=== PATIENT | male | born 1945 | race Caucasian/White ===

== ENCOUNTER 2021-03-04 05:04 | Inpatient (IN) ==
--- NOTE | 2021-02-26 11:12 | Anesthesiology Consultation ---
Date of Service February 26, 2021 Assessment & Plan (1) Encounter for pre-operative examination: Chart Review Chart Review: Pending: Refer to Additional Notes / Consult section Please obtain most recent note from patient's PCP to ensure he has had adequate follow up and that his blood pressure has been under adequate control given his history of diabetes and TIA. If he had not seen his PCP in the last year please obtain a PCP clearance prior to the procedure. History Surgery Operation Date: 03/04/21 07:15 Proposed Procedures p L4-S1 Posterior Lumbar Decompression and Fusion, Interbody Fusion, Autograft, Allograft - Kristin Alvarado MD Height/Weight Height: 5 ft 11 in Weight: 108.862 kg Allergies Allergy/AdvReac Type Severity Reaction Status Date / Time niacin Allergy Mild red and Verified 02/24/21 10:46 sweating Medications Home Medications Medication Instructions Recorded Confirmed Last Taken aspirin 81 mg tablet,delayed 81 mg PO QAM 10/11/19 02/24/21 12/12/19 release cyanocobalamin (vitamin B-12) 1,000 mcg PO QAM 10/11/19 02/24/21 12/12/19 1,000 mcg tablet (Vitamin B-12) fenofibrate nanocrystallized 145 145 mg PO QAM 10/11/19 02/24/21 12/12/19 mg tablet furosemide 40 mg tablet 40 mg PO QAM 10/11/19 02/24/21 12/12/19 gabapentin 300 mg capsule 300 mg PO BID 10/11/19 02/24/21 12/12/19 insulin aspart U-100 100 unit/mL 10 unit SUBCUT TIDM 10/11/19 02/24/21 12/12/19 subcutaneous solution (Novolog U-100 Insulin aspart) insulin glargine 100 unit/mL 50 unit SUBCUT HS 10/11/19 02/24/21 12/12/19 subcutaneous solution (Lantus U-100 Insulin) levothyroxine 112 mcg tablet 112 mcg PO QAM 10/11/19 02/24/21 12/12/19 lisinopril 40 mg tablet 40 mg PO QAM 10/11/19 02/24/21 12/12/19 metformin 1,000 mg tablet 1,000 mg PO BID 10/11/19 02/24/21 12/12/19 metoprolol tartrate 50 mg tablet 50 mg PO BID 10/11/19 02/24/21 12/12/19 omega 8-kcg-qqb-fish oil 1,000 mg 1 cap PO QAM 10/11/19 02/24/21 12/12/19 (120 mg-180 mg) capsule (Fish Oil) omeprazole 20 mg tablet,delayed 20 mg PO QAM 10/11/19 02/24/21 12/12/19 release oxybutynin chloride 5 mg tablet 5 mg PO BID 10/11/19 02/24/21 12/12/19 rosuvastatin 5 mg tablet 5 mg PO QAM 10/11/19 02/24/21 12/12/19 tamsulosin 0.4 mg capsule 0.4 mg PO QAM 10/11/19 02/24/21 12/12/19 meloxicam 7.5 mg tablet 7.5 mg PO QAM 02/24/21 02/24/21 Unknown Past Medical History Medical History BPH (benign prostatic hyperplasia) Chronic back pain Diabetes mellitus type 1 Hyperlipidemia Hypertension Hypothyroidism Lumbar stenosis with neurogenic claudication Spinal stenosis Transient ischemic attack (TIA) Past Family History Family History Father Family history of diabetes mellitus Other No family history of adverse response to anesthesia Past Surgical History Surgical History History of colonoscopy with polypectomy History of left inguinal hernia repair History of lumbar surgery History of revision of total replacement of right hip joint History of tonsillectomy History of total right hip replacement History of wisdom tooth extraction Social History Smoking Status: Current every day smoker tobacco type: cigarettes Smoking cigarettes per day: 1/2-1 ppd Do You Dip or Chew Tobacco: No Hx Alcohol Use: No Alcohol type: beer alcohol intake frequency: holidays/special occasions only Hx Substance Use: No substance use type: does not use Testing Laboratory Results Laboratory Tests 02/25/21 02/25/21 02/25/21 09:25 09:25 09:25 WBC 6.61 Hgb 16.4 Hct 46.5 Plt Count 181 APTT 24.3 Sodium 138 Potassium 4.2 Chloride 106 Carbon Dioxide 27 BUN 18 Creatinine 1.21 Glucose 112 H Electrocardiogram Date: 02/25/21 Sinus bradycardia with 1st degree A-V block Otherwise normal ECG When compared with ECG of 25-FEB-2015 11:20, No significant change was found Chest X-Ray Date: 02/25/21 IMPRESSION: Cardiomegaly with no active disease in the chest.
[2021-03-04] MEDS ORDERED: ceFAZolin 2000MG 2,000 MG/15 ML SYR IV SCH (06:00)
[2021-03-04] MEDS ORDERED: LR 15ML/HR IV SCH (06:00)
[2021-03-04] MEDS ORDERED: LR 60ML/HR IV SCH (06:00)
[2021-03-04] MEDS ORDERED: ONDANSETRON INJ 2 MG/ML 2 ML VIAL ONE (06:25)
[2021-03-04] MEDS ORDERED: CISATRACURIUM BESYLATE IV SOLN 2 MG/ML 10 ML VIAL IV ONE ×2 (06:25→09:11)
[2021-03-04] MEDS ORDERED: NEOSTIGMINE METHYLSULFATE 1 MG/ML 10ML VIAL ONE (06:25)
[2021-03-04] MEDS ORDERED: HYDROmorphone INJ 2 MG/ML SYR/VIAL ONE (06:25)
[2021-03-04] MEDS ORDERED: KETAMINE 50 MG/5 ML SYRINGE ONE (06:25)
[2021-03-04] MEDS ORDERED: PROPOFOL IV EMULSION 10 MG/ML 20 ML VIAL IV ONE (06:25)
[2021-03-04] MEDS ORDERED: fentaNYL citrate 100 MCG/2 ML VIAL ONE ×4 (06:25→15:00)
[2021-03-04] MEDS ORDERED: MIDAZOLAM HCL 1 MG/ML 2ML VIAL ONE (06:25)
[2021-03-04] MEDS ORDERED: DEXAMETHASONE SOD INJ 4 MG/ML VIAL ONE (06:25)
[2021-03-04] MEDS ORDERED: GLYCOPYRROLATE 0.2 MG/ML VIAL ONE (06:25)
[2021-03-04] MEDS ORDERED: SUCCINYLCHOLINE CHLORIDE 20 MG/ML 10 ML VIAL IV ONE (06:25)
[2021-03-04] MEDS ORDERED: ACETAMINOPHEN 1000 MG/100 ML IV IV ONE (06:35)
[2021-03-04] MEDS ORDERED: ALBUMIN HUMAN 5% 12.5 GM/250 ML VIAL IV ONE ×2 (06:36→14:41)
[2021-03-04] MEDS ORDERED: TRANEXAMIC ACID / 0.7% NACL 1000MG/100ML BAG IV ONE (06:47)
--- NOTE | 2021-03-04 06:54 | History & Physical Bridge Note ---
Date of Service March 04, 2021 History & Physical Bridge Note I have examined the patient, reviewed the History & Physical and in the interval since the performance of the History & Physical I have noted the following changes of clinical significance: no changes noted New changes compared to last appointment: nil Musculoskeletal: 5/5 motor strength bilateral L2-S1 except right L5 3/5, left S1 4/5, right S1 4+/5 Neurologic: Sensation 2/2 to light touch bilateral L2-S1. Patient marked for surgery. All new questions about procedure answered. Informed consent confirmed
[2021-03-04] MEDS ORDERED: VANCOMYCIN HCL 1000MG/20ML VIAL ONE (07:26)
[2021-03-04] MEDS ORDERED: THROMBIN FOR SOLN 20000 UNIT KIT ONE (07:26)
[2021-03-04] MEDS ORDERED: GELATIN SPONGE SZ 100 ONE (07:26)
[2021-03-04] MEDS ORDERED: PHENYLEPHRINE 100MCG/ML 5ML SYR ONE (08:03)
[2021-03-04] MEDS ORDERED: ePHEDrine sulfate 50 MG/ML SYR ONE (08:03)
[2021-03-04] MEDS ORDERED: ePHEDrine sulfate 50 MG/ML AMP ONE (08:26)
[2021-03-04] MEDS ORDERED: PHENYLEPHRINE HCL 10 MG/ML VIAL ONE ×3 (08:40→15:10)
[2021-03-04] MEDS ORDERED: LABETALOL HCL IV 5 MG/ML 20ML IV PRN (11:28)
[2021-03-04] MEDS ORDERED: ATROPINE SULFATE 0.1 MG/ML 10ML SYR IV PRN (11:28)
[2021-03-04] MEDS ORDERED: fentaNYL citrate 100 MCG/2 ML VIAL IV PRN (11:28)
[2021-03-04] MEDS ORDERED: HYDROmorphone INJ 1 MG/ML SYRINGE IV PRN (11:28)
[2021-03-04] MEDS ORDERED: ONDANSETRON INJ 2 MG/ML 2 ML VIAL IV PRN ×2 (11:28→17:41)
[2021-03-04] MEDS ORDERED: ePHEDrine sulfate 50 MG/ML AMP IV PRN (11:28)
[2021-03-04] MEDS ORDERED: FLUMAZENIL 0.1 MG/1 ML 10 ML VIAL IV PRN (11:28)
[2021-03-04] MEDS ORDERED: NALOXONE HCL 0.4 MG/1 ML VIAL/CARP IV PRN ×2 (11:28→17:41)
[2021-03-04] MEDS ORDERED: PROMETHAZINE HCL 12.5 MG in SODIUM CHLORIDE 0.9% 50 ML IV PRN ×2 (11:28→17:41)
[2021-03-04] MEDS ORDERED: ceFAZolin 2000MG 2,000 MG/15 ML SYR IV ONE (12:04)
[2021-03-04 12:53] LABS: Basophils # (auto) 0.02 K/uL (0-0.2); Basophils % (auto) 0.2 %; Eosinophils # (auto) 0.01 K/uL (0-0.5); Eosinophils % (auto) 0.1 %; Hematocrit (blood only) 43.1 % (42-52); Hemoglobin 15.3 g/dL (14.0-18.0); Immature Granulocytes # (auto) 0.04 K/uL (0.00-0.02); Immature Granulocytes % (auto) 0.4 %; Lymphocytes # (auto) 1.06 K/uL (1.2-3.4); Lymphocytes % (auto) 10.6 %; Mean Corpuscular Hemoglobin 31.7 pg (25-34); Mean Corpuscular Volume 89.4 fL (80-100); Neutrophils # (auto) 8.75 K/uL (1.4-6.5); Neutrophils % (auto) 87.7 %; Platelet Count 201 K/uL (130-400); RDW Coefficient of Variation 13.8 % (11.5-14.5); RDW Standard Deviation 45.6 fL (36.4-46.3); Red Blood Count 4.82 M/uL (4.7-6.1); White Blood Count 9.98 K/uL (4.8-10.8)
[2021-03-04 13:09] LABS: iSTAT Creatinine 1.1 mg/dl (0.6-1.3); iSTAT Hemoglobin 14.3 g/dl (14.0-18.0); iSTAT Ionized Calcium 1.18 mmol/l (1.12-1.32); iSTAT Potassium 4.8 mmol/L (3.3-5.0)
[2021-03-04 13:14] LABS: Mean Corpuscular Hgb Conc 35.5 g/dL (32-36)
[2021-03-04 15:03] LABS: iSTAT Creatinine 1.1 mg/dl (0.6-1.3); iSTAT Hemoglobin 13.6 g/dl (14.0-18.0); iSTAT Ionized Calcium 1.22 mmol/l (1.12-1.32); iSTAT Potassium 5.4 mmol/L (3.3-5.0)
[2021-03-04] MEDS ORDERED: FLOSEAL HEMOSTATIC MATRIX 10ML TOP ONE (15:03)
[2021-03-04 15:21] LABS: Hematocrit (blood only) 39.4 % (42-52); Hemoglobin 13.6 g/dL (14.0-18.0); Mean Corpuscular Hemoglobin 31.3 pg (25-34); Mean Corpuscular Volume 90.6 fL (80-100); Mean Platelet Volume 10.1 fL (7.4-10.4); Platelet Count 252 K/uL (130-400); RDW Standard Deviation 46.6 fL (36.4-46.3); Red Blood Count 4.35 M/uL (4.7-6.1); White Blood Count 13.41 K/uL (4.8-10.8)
[2021-03-04 15:44] LABS: BUN Creatinine Ratio 12.7 (10-20); Calcium 8.1 mg/dl (8.5-10.1); Creatinine Clr Calc Pharmacy 60.3 ml/min; Est GFR (African American) 60.6 ml/min; Est GFR (Non-African American) 52.3 ml/min; Potassium 5.3 mmol/L (3.5-5.1)
--- NOTE | 2021-03-04 15:52 | XRay Report ---
XR lumbar spine 2-3V CLINICAL HISTORY: L4-S1 POSTERIOR LUMBAR DECOMPRESSION, FUSION, INTERBODY COMPARISON STUDY: Lumbar spine 01/28/2021. FINDINGS: 19 images of the lumbar spine demonstrate posterior decompression and fusion from L4 throug h S1 with pedicle screws in place. The hardware appears intact. IMPRESSION: Posterior decompression and fusion from L4 through S1. The hardware appears intact. ACT 112: Negative or not required by law. Electronically signed by: Sukhwinder Calle M.D. 03/04/2021 3:51 PM
[2021-03-04 15:55] LABS: Mean Corpuscular Hgb Conc 34.5 g/dL (32-36)
--- NOTE | 2021-03-04 16:05 | Post Operative Brief Note ---
PG Immediate Post Op with CF Date of Surgery March 04, 2021 Pre & Post Diagnosis Operation Date: 03/04/21 Pre-Op Diagnosis: Neurogenic Claudication, Scoliosis Post-Op Diagnosis: Neurogenic Claudication, Scoliosis I identified the patient and participated in the time-out.: Yes Procedure L4-S1 Posterior Lumbar Instrumentation and Fusion, L5-S1 posterior deco mpression, Local Autograft, Allograft Surgeon Kristin Alvarado MD Senior Technical Specialist Ke Aguilar PA-C Estimated Blood Loss 1,500 (Linda Mahoney and Dr. Alvarado agreed on amount.) Findings Consistent with Post-Op Diagnosis Specimens Specimen Description: None collected per surgeon Drains Morton Catheter and Hemovac Drain
[2021-03-04] MEDS ORDERED: METOPROLOL TARTRATE 1 MG/ML VIAL IV ONE (16:14)
[2021-03-04] MEDS ORDERED: INSULIN ASPART PER UNIT SC STA (16:18)
[2021-03-04] MEDS ORDERED: INSULIN ASPART PER UNIT ONE (16:19)
[2021-03-04] MEDS ORDERED: METOPROLOL TARTRATE 1 MG/ML VIAL IV STA (16:21)
--- NOTE | 2021-03-04 16:32 | Internal Medicine Consult Note ---
Date of Consultation March 04, 2021 Assessment & Plan (1) Lumbar stenosis with neurogenic claudication: (2) Lumbar spinal stenosis: (3) Acute postoperative anemia due to greater than expected blood loss: (4) Scoliosis: (5) Tachycardia: (6) Hyperkalemia: (7) Chronic kidney disease: (8) BPH (benign prostatic hyperplasia): (9) Diabetes: (10) HTN (hypertension): (11) HLD (hyperlipidemia): (12) Hypothyroid: Place in ICU for now, Insulin SS, Transfuse if Hb drops below 10 Resume Post Op Care per Surgery Protocol Incentive Spirometry 10x per Hour Resume Relative Home Meds Where Appropriate PT/OT with appropriate fall precautions Transition from IV to PO Pain control DVT Prophylaxis Per Surgery Protocol Monitor Daily Labs Total time 1 hour CC time History of Present Illness Reason for Consultation: Medical Management, Tachycardia Requesting Physician: Kristin Alvarado MD Attending Physician: Kristin Alvarado MD History of Present Illness 75 yo male c a PMH of BPH, Chronic back pain, Diabetes, HTN, HLD, Hypothyroidism, TIA, Lumbar stenosis c claudication who today was operated on by Dr Alvarado. The procedure was long and I was consulted by Anesthesia to see the patient stat in PACU. I was told he had an estimated blood loss of 1500 ml, received 4 L of LR and 750 ml of Albumin to maintain his BP. Pre-op his Hb was 13.3. In the PACU he was and tachycardic and was given some IV Metoprolol. I saw him in PACU and he was still groggy from surgery. He was in OR [id number]. He followed commands was was to weak and groggy to talk. Due to his soft BP and elevated HR and all the IV fluid and blood loss during the case so far, I elected to get the CC team involved at least overnight. The patient had Neurogenic Claudication and Scoliosis, the Procedure was an L4-S1 Posterior Lumbar Instrumentation and Fusion, L5-S1 posterior decompression, Local Aut ograft, Allograft. Of note, an accu check revealed a BS of over 300 and 16 U of insulin was given. Allergies Allergy/AdvReac Type Severity Reaction Status Date / Time niacin Allergy Mild red and Verified 03/04/21 05:42 sweating Home Medications Medication Instructions Recorded Confirmed Type aspirin 81 mg tablet,delayed 81 mg PO QAM 10/11/19 02/24/21 History release cyanocobalamin (vitamin B-12) 1,000 mcg PO QAM 10/11/19 02/24/21 History 1,000 mcg tablet (Vitamin B-12) fenofibrate nanocrystallized 145 145 mg PO QAM 10/11/19 02/24/21 History mg tablet furosemide 40 mg tablet 40 mg PO QAM 10/11/19 02/24/21 History gabapentin 300 mg capsule 300 mg PO BID 10/11/19 03/04/21 History insulin aspart U-100 100 unit/mL 10 unit SUBCUT TIDM 10/11/19 03/04/21 History subcutaneous solution (Novolog U-100 Insulin aspart) insulin glargine 100 unit/mL 50 unit SUBCUT HS 10/11/19 03/04/21 History subcutaneous solution (Lantus U-100 Insulin) levothyroxine 112 mcg tablet 112 mcg PO QAM 10/11/19 02/24/21 History lisinopril 40 mg tablet 40 mg PO QAM 10/11/19 02/24/21 History metformin 1,000 mg tablet 1,000 mg PO BID 10/11/19 03/04/21 History metoprolol tartrate 50 mg tablet 50 mg PO BID 10/11/19 03/04/21 History omega 8-oap-klc-fish oil 1,000 mg 1 cap PO QAM 10/11/19 02/24/21 History (120 mg-180 mg) capsule (Fish Oil) omeprazole 20 mg tablet,delayed 20 mg PO QAM 10/11/19 02/24/21 History release oxybutynin chloride 5 mg tablet 5 mg PO BID 10/11/19 03/04/21 History rosuvastatin 5 mg tablet 5 mg PO QAM 10/11/19 02/24/21 History tamsulosin 0.4 mg capsule 0.4 mg PO QAM 10/11/19 02/24/21 History meloxicam 7.5 mg tablet 7.5 mg PO QAM 02/24/21 02/24/21 History Patient History Medical History BPH (benign prostatic hyperplasia) Chronic back pain Diabetes mellitus type 1 Hyperlipidemia Hypertension Hypothyroidism Lumbar stenosis with neurogenic claudication Spinal stenosis Transient ischemic attack (TIA) 2016--no deficits, no neurologist Surgical History History of colonoscopy with polypectomy History of left inguinal hernia repair History of lumbar surgery History of revision of total replacement of right hip joint History of tonsillectomy History of total right hip replacement History of wisdom tooth extraction Family History Father Family history of diabetes mellitus Other No family history of adverse response to anesthesia Social History Smoking Status: Current every day smoker Cigarettes Per Day: 1/2-1 ppd; Second Hand Exposure: No; Do You Dip or Chew Tobacco: No; Tobacco Cessation Education Requested by Patient: No Hx Alcohol Use: No Hx Substance Use: No Preferred Language: Slovak Communication Ability: Effective Assistant Spa Director Required: No Beliefs That Will Affect Care: None Current Living Situation: Alone Other Information That Helps Us Care for You: No Feels Safe at Home: Yes Safety Concerns: Feels Safe At This Time Assistive Devices: Cane and Glasses Review of Systems Review of Systems: Patient offered no history to me, but followed commands Physical Exam Physical Exam: Physical Exam Gen-NAD, Afebrile Head-NCAT, EOMI, PERRLA, Anicteric Sclera Neck-Supple, No JVD, No Thyromegaly, No Masses, No LAD, No Bruits Lungs-Clear to Auscultation Bilaterally, No Rales, No Rhonchi, No Wheezing, No Crepitus Chest-No S4, +S1, +S2, No S3, No Murmurs, No Rubs, No Gallops, No Ectopy Abdomen-Soft, Bowel Sounds Present, Non Tender, Non Distended, No Hepatomegaly, No Splenomegaly, No Palpable Masses, No Rebound, No Rigidity, No Guarding Musculoskeletal-NA Extremities-No Cyanosis, No Clubbing, No Edema Nuero-Cranial Nerves II-XII grossly intact, Non Focal Psych-Somnolent from anesthesia Results & Data ([facility]) Vital Signs (Past 12 Hours) Vital Signs Temp Pulse Pulse Resp BP Pulse Ox 03/04/21 16:16 120 H 03/04/21 05:20 37 C 74 18 166/75 H 93 Laboratory Results Current Diagnoses Hyperkalemia (03/04/21) Spinal stenosis, lumbar region with neurogenic claudication (03/04/21) Chronic kidney disease, unspecified (03/04/21) Tachycardia, unspecified (03/04/21) Encounter for other preprocedural examination (03/04/21) Allergies niacin Allergy (Mild, Verified 03/04/21 05:42) red and sweating Height/Weight/Isolation Height 5 ft 11 in Weight 105.8 kg Chemistry 03/04/21 15:05 Sodium 138 Potassium 5.3 H Chloride 107 Carbon Dioxide 23 Anion Gap 8.0 BUN 17 Creatinine 1.33 Glucose 299 H
[2021-03-04 16:42] LABS: Hematocrit (blood only) 35.4 % (42-52); Hemoglobin 12.4 g/dL (14.0-18.0)
--- NOTE | 2021-03-04 17:16 | Anesthesiology Progress Note ---
Date of Service March 04, 2021 Anesthesia Post Procedure Vital Signs Vital Signs: Temp Pulse Pulse Pulse Resp BP BP 03/04/21 17:05 94 H 21 98/53 L 97/39 L 03/04/21 16:55 36.4 C L 93 H 18 101/56 L 110/39 L 03/04/21 16:45 93 H 17 107/40 L 102/57 L 03/04/21 16:35 96 H 14 100/59 L 03/04/21 16:25 91 H 14 108/65 03/04/21 16:16 120 H 03/04/21 16:15 123 H 23 125/64 03/04/21 16:07 36.0 C L 125 H 15 111/67 03/04/21 05:20 37 C 74 18 166/75 H Pulse Ox 03/04/21 17:05 95 03/04/21 16:55 96 03/04/21 16:45 96 03/04/21 16:35 96 03/04/21 16:25 97 03/04/21 16:16 03/04/21 16:15 97 03/04/21 16:07 97 03/04/21 05:20 93 Pain Intensity Right Back: Pain Intensity: 2 Transfer of Care Handoff Completed per policy Notes Mental Status: alert / awake / arousable Patient Amnestic to Procedure: Yes Nausea / Vomiting: adequately controlled Pain: adequately controlled Airway Patency, RR, SpO2: stable & adequate BP & HR: stable & adequate and see Notes below Hydration State: stable & adequate Anesthetic Complications: no major complications apparent and Pt Satisfied with anesthetic care Notes: The patient underwent a posterior lumbar decompression and fusion. Dr. Garcia started the anesthetic and signed out to Dr. King who supervised the rest of the procedure. The patient was under anesthesia and prone for eight to nine hours. He received albumin 750 ml and 3600 ml of LR in the OR. EBL was 1500 ml and urine output was 1100 ml. The patient is awake and following commands in the PACU. He is able to move all extremities and stick out his to ngue. He was able to see and state the correct number of fingers. He is slightly hypotensive with SBP in the 90s to 100s with HR in the 90s. His other vital signs are stable. Postop BSG was 320. He was given Novolog SQ 16 [facility] and would like the patient to go to the ICU for monitoring. Sign out was given to Jamil Wang and Dr. Figueroa in the ICU.
[2021-03-04] MEDS ORDERED: hydrOXYzine HCl 25 MG TAB PO PRN (17:41)
[2021-03-04] MEDS ORDERED: ACETAMINOPHEN 500 MG TAB PO PRN (17:41)
[2021-03-04] MEDS ORDERED: MAGNESIUM HYDROXIDE SUSP 30 ML UDC PO PRN (17:41)
[2021-03-04] MEDS ORDERED: HYDROmorphone INJ 0.5 MG/0.5 ML SYR IV PRN (17:41)
[2021-03-04] MEDS ORDERED: INSULIN ASPART PER UNIT SQ SCH (17:41)
[2021-03-04] MEDS ORDERED: METOCLOPRAMIDE HCL INJ 5 MG/ML 2 ML VIAL IV PRN (17:41)
[2021-03-04] MEDS ORDERED: DO NOT ADMINISTER PNEUMOCOCCAL VACCINE PRN (17:41)
[2021-03-04] MEDS ORDERED: SOD PHOSPHATE/SOD BIPHOSPHATE ENEMA 132 ML BTL PR PRN (17:41)
[2021-03-04] MEDS ORDERED: ACETAMINOPHEN 1,000 MG/100 ML VIAL IV PRN (17:41)
[2021-03-04] MEDS ORDERED: diphenhydrAMINE Capsule 25 MG CAP PO PRN (17:41)
[2021-03-04] MEDS ORDERED: ALUMINUM/MAGNESIUM SUSP 30 ML UDC PO PRN (17:41)
[2021-03-04] MEDS ORDERED: FAMOTIDINE 20 MG TAB PO PRN (17:41)
[2021-03-04] MEDS ORDERED: ONDANSETRON 4 MG OD TAB PO PRN (17:41)
[2021-03-04] MEDS ORDERED: LORazepam 0.5 MG TAB PO PRN (17:41)
[2021-03-04] MEDS ORDERED: DO NOT ADMINISTER FLU VACCINE PRN (17:41)
[2021-03-04] MEDS ORDERED: bisacodyL 10 MG SUPP PR PRN (17:41)
[2021-03-04] MEDS ORDERED: PHARMACY GLYCEMIC MGMT CONSULT PRN ×2 (17:41→18:24)
[2021-03-04] MEDS ORDERED: LORazepam 0.5 MG/1 ML VIAL IV PRN (17:41)
--- NOTE | 2021-03-04 17:53 | Critical Care Consultation ---
Date of Consultation March 04, 2021 Assessment & Plan (1) Lumbar stenosis with neurogenic claudication: (2) Tachycardia: (3) Hyperkalemia: (4) Chronic kidney disease: Impression: 75-year-old male status post extensive spine surgery today where he spent an extended period of time prone. He had a large EBL. He is being monitored in the ICU postoperatively. He is tachycardic but normotensive. He has a nonfocal neuro exam. Recommendations: 1. Tachycardia: Suspect this is physiologic response to the patient's stresses from today. There is no evidence of atrial fibrillation. Would continue to follow at this point time. No indication for beta-blockers given that this is sinus tach. 2. Potential acute blood loss anemia: We will continue to follow hemoglobin and hematocrit. Transfusion thresholds are likely less than 8. 3. Chronic kidney disease: Creatinine appears to be at baseline. Will continue to follow electrolytes. 4. Hyperkalemia: We will give a dose of Lasix and calcium now. Recheck BMP in a few hours if continues to remain elevated, additional interventions will be required. We will hold his lisinopril as this may aggravate hyperkalemia especially given his kidney function. 5. Diabetes: Poorly controlled with elevated blood sugars. Glycemic consult will be entered through pharmacy. Would favor holding Metformin in the face of uncertain kidney function currently. 6. Defer DVT prophylaxis and pain management to the operative team. 7. PT OT and activity deferred to the operative team. If the patient does well overnight he can likely transfer to the floor under the care of the hospitalist in the morning. Discussed with bedside ICU nurse. History of Present Illness Attending Physician: Kristin Alvarado MD History of Present Illness Asked by hospitalist to evaluate this patient admitted to the ICU for postoper ative monitoring after an extensive spine surgery. History is obtained from discussion with the anesthesiologist and patient as well as review of the electronic medical record. Patient is a 75-year-old male with a history of hypertension diabetes obesity hypothyroidism reflux and previous TIAs who has had chronic back pain. He failed conservative management and was seen in consultation by the orthospine surgeon. He was taken today to the OR for L4-S1 fusion with L5-S1 posterior decompression. Estimated blood loss during the procedure was 1.5 L. The patient received albumin as well as about 3 L of crystalloid. He also received Decadron during the case. He was extubated in the PACU medicine was consulted for management however they felt that given the extensive nature of his surgery and his comorbid medical conditions he should be observed in the ICU overnight. The patient is currently tachycardic but normotensive. His blood sugars have been elevated despite administration of insulin. The patient states his pain is under good control currently. He denies any shortness of breath. No vision changes. He denies nausea or vomiting. No abdominal pain. No chest pain or palpitations. Allergies Allergy/AdvReac Type Severity Reaction Status Date / Time niacin Allergy Mild red and Verified 03/04/21 05:42 sweating Home Medications Medication Instructions Recorded Confirmed Type aspirin 81 mg tablet,delayed 81 mg PO QAM 10/11/19 02/24/21 History release cyanocobalamin (vitamin B-12) 1,000 mcg PO QAM 10/11/19 02/24/21 History 1,000 mcg tablet (Vitamin B-12) fenofibrate nanocrystallized 145 145 mg PO QAM 10/11/19 02/24/21 History mg tablet furosemide 40 mg tablet 40 mg PO QAM 10/11/19 02/24/21 History gabapentin 300 mg capsule 300 mg PO BID 10/11/19 03/04/21 History insulin aspart U-100 100 unit/mL 10 unit SUBCUT TIDM 10/11/19 03/04/21 History subcutaneous solution (Novolog U-100 Insulin aspart) insulin glargine 100 unit/mL 50 unit SUBCUT HS 10/11/19 03/04/21 History subcutaneous solution (Lantus U-100 Insulin) levothyroxine 112 mcg tablet 112 mcg PO QAM 10/11/19 02/24/21 History lisinopril 40 mg tablet 40 mg PO QAM 10/11/19 02/24/21 History metformin 1,000 mg tablet 1,000 mg PO BID 10/11/19 03/04/21 History metoprolol tartrate 50 mg tablet 50 mg PO BID 10/11/19 03/04/21 History omega 8-coy-ovy-fish oil 1,000 mg 1 cap PO QAM 10/11/19 02/24/21 History (120 mg-180 mg) capsule (Fish Oil) omeprazole 20 mg tablet,delayed 20 mg PO QAM 10/11/19 02/24/21 History release oxybutynin chloride 5 mg tablet 5 mg PO BID 10/11/19 03/04/21 History rosuvastatin 5 mg tablet 5 mg PO QAM 10/11/19 02/24/21 History tamsulosin 0.4 mg capsule 0.4 mg PO QAM 10/11/19 02/24/21 History meloxicam 7.5 mg tablet 7.5 mg PO QAM 02/24/21 02/24/21 History Patient History Medical History BPH (benign prostatic hyperplasia) Chronic back pain Diabetes mellitus type 1 Hyperlipidemia Hypertension Hypothyroidism Lumbar stenosis with neurogenic claudication Spinal stenosis Transient ischemic attack (TIA) Surgical History History of colonoscopy with polypectomy History of left inguinal hernia repair History of lumbar surgery History of revision of total replacement of right hip joint History of tonsillectomy History of total right hip replacement History of wisdom tooth extraction Family History Father Family history of diabetes mellitus Other No family history of adverse response to anesthesia Social History Smoking Status: Current every day smoker Cigarettes Per Day: 1/2-1 ppd; Second Hand Exposure: No; Do You Dip or Chew Tobacco: No; Tobacco Cessation Education Requested by Patient: No Hx Alcohol Use: No Hx Substance Use: No Preferred Language: Wallisian Communication Ability: Effective Director Of Design Required: No Beliefs That Will Affect Care: None Current Living Situation: Alone Other Information That Helps Us Care for You: No Feels Safe at Home: Yes Safety Concerns: Feels Safe At This Time Assistive Devices: Cane and Glasses Review of Systems Review of Systems: All systems reviewed & are unremarkable except as noted in HPI & below Physical Exam Constitutional: WD/WN, vitals as above Neck: trachea midline, no thyromegaly Respiratory: normal respiratory effort, lungs clear to auscultation Cardiovascular: RRR, no murmur, no edema Gastrointestinal (Abdomen): normal bowel sounds, soft, nontender, no hepatosplenomegaly Musculoskeletal: Extremities: extremities normal to inspection Skin: no rashes, warm and dry Neurologic: Nonfocal exam Lymphatic: no cervical lymphadenopathy Results & Data Results & Data ([facility]) Vital Signs (Past 12 Hours) Vital Signs Temp Pulse Pulse Resp BP BP Pulse Ox 03/04/21 17:15 110 H 20 106/55 L 104/36 L 94 03/04/21 17:05 94 H 21 98/53 L 97/39 L 95 03/04/21 16:55 36.4 C L 93 H 18 101/56 L 110/39 L 96 03/04/21 16:45 93 H 17 107/40 L 102/57 L 96 03/04/21 16:35 96 H 14 100/59 L 96 03/04/21 16:25 91 H 14 108/65 97 03/04/21 16:16 120 H 03/04/21 16:15 123 H 23 125/64 97 03/04/21 16:07 36.0 C L 125 H 15 111/67 97 Laboratory Results 03/04/21 16:31 03/04/21 15:05 Diagnostic Findings No pertinent imaging to review. Preoperative chest x-ray from 02/25/2021 showed cardiomegaly but no other acute finding Coding Level of Care Code 83576 Inpt Consult Level 4 Diagnoses Lumbar stenosis with neurogenic claudication M48.062 Tachycardia R00.0 Hyperkalemia E87.5 Chronic kidney disease N18.9
[2021-03-04] MEDS ORDERED: CALCIUM GLUCONATE 10% 2,000 MG in SODIUM CHLORIDE 0.9% 50 ML IV ONE (18:00)
[2021-03-04] MEDS ORDERED: FUROSEMIDE 40 MG in SYRINGE 0 ML IV ONE (18:00)
[2021-03-04] MEDS ORDERED: LANTUS PER UNIT CHARGE SQ STA (18:23)
[2021-03-04] MEDS ORDERED: CARBOHYDRATES FOR HYPOGLYCEMIA PO PRN (18:24)
[2021-03-04] MEDS ORDERED: GLUCOSE 40% GEL 15 GM TUBE PO PRN (18:24)
[2021-03-04] MEDS ORDERED: DEXTROSE 50% 50 ML SYRINGE IV PRN (18:24)
[2021-03-04] MEDS ORDERED: GLUCAGON FOR INJ 1 MG VIAL SQ PRN (18:24)
[2021-03-04] MEDS ORDERED: GLUCOSE 10 TABS/TUBE PO PRN (18:24)
[2021-03-04] MEDS: LACTATED RINGER'S 1,000 ML IV SCH (18:26)
[2021-03-04] MEDS ORDERED: INSULIN HUMAN REGULAR PER UNIT 10 UNITS in SYRINGE 9.9 ML IV ONE (18:30)
[2021-03-04] MEDS ORDERED: INSULIN GLARGINE SOLOSTAR 100 UNITS/ML 3 ML PEN SC ONE (18:45)
--- NOTE | 2021-03-04 19:09 | Communication Note ---
Date of Service: March 04, 2021 Post-op routine neurological assessment completed Patient awake, alert No new neurological deficits noted Musculoskeletal: 5/5 motor strength bilateral L2-S1 except right L5 3/5, left S1 4/5, right S1 4+/5 Neurologic: Sensation 2/2 to light touch bilateral L2-S1.
[2021-03-04] MEDS: INSULIN ASPART 100 UNITS/ML 3 ML PEN SC SCH ×2 (19:22→21:48)
[2021-03-04 19:24] LABS: Hematocrit (blood only) 35.9 % (42-52); Hemoglobin 12.3 g/dL (14.0-18.0)
[2021-03-04] MEDS: ceFAZolin 2000MG 2,000 MG/15 ML SYR IV SCH (19:25)
--- NOTE | 2021-03-04 19:35 | Pharmacy Report ---
Pharmacy Glycemic Short Note 2 - Date of Service March 04, 2021 - Glycemic Short BSG Results (Last 24 hours): 03/04/21 03/04/21 03/04/21 05:27 12:44 14:38 Glucose POC Glucose 195 H POC Glucose (other) 275 H 303 H 03/04/21 03/04/21 03/04/21 15:05 16:08 17:01 Glucose 299 H POC Glucose 320 H* 314 H* POC Glucose (other) 03/04/21 18:06 Glucose POC Glucose 296 H POC Glucose (other) OUTPATIENT ANTIDIABETIC REGIMEN: * Lantus 50 units HS, Novolog 10 units TID, metformin * A1c ordered for tomorrow AM ASSESSMENT: * 75 year old male now s/p spinal surgery. With tachycardia postop now transferred to ICU for monitoring. * Patient received 16 units in OR this afternoon, postop BSG elevated at 296 mg/dL - plan to give 10 units IV insulin * Will stress home dose basal and give 60 units x 1 now to account for DXM given in OR earlier * Begin stress of 3 dosing for novolog with overnight checks PLAN FOR INPATIENT GLYCEMIC CONTROL: * Hold outpatient oral diabetes medications * Basal insulin * Lantus 60 units x 1 * Bolus insulin * NovoLog per scale ACHS or Q6hrs while NPO * Goal Range: Low 110 mg/dL - High 140 mg/dL * Correction Factor: 15 mg/dL/unit * Nutritional / Prandial insulin per carb ratio of 1 unit per 5 grams CHO consumed PLAN FOR DISCHARGE: * TBD
[2021-03-04] MEDS ORDERED: LANTUS PER UNIT CHARGE SQ SCH (21:00)
[2021-03-04] MEDS ORDERED: metFORMIN HCL 500 MG TAB PO SCH (21:00)
[2021-03-04] MEDS: METOPROLOL TARTRATE 50 MG TAB PO SCH (21:47)
[2021-03-04] MEDS: CYCLOBENZAPRINE HCL 10 MG TAB PO SCH (21:47)
[2021-03-04] MEDS: DOCUSATE SODIUM/SENNA 50/8.6MG TAB PO SCH (21:47)
[2021-03-04] MEDS: OXYBUTYNIN CHLORIDE 5 MG TAB PO SCH (21:48)
[2021-03-04] MEDS: GABAPENTIN 300 MG CAP PO SCH (21:48)
[2021-03-04 23:47] LABS: BUN Creatinine Ratio 15.7 (10-20); Calcium 8.5 mg/dl (8.5-10.1); Creatinine Clr Calc Pharmacy 58.1 ml/min; Potassium 4.2 mmol/L (3.5-5.1)
[2021-03-05] MEDS: ceFAZolin 2000MG 2,000 MG/15 ML SYR IV SCH (03:46)
[2021-03-05] MEDS: INSULIN ASPART 100 UNITS/ML 3 ML PEN SC SCH ×6 (03:59→20:13)
[2021-03-05 05:21] LABS: Basophils # (auto) 0.01 K/uL (0-0.2); Basophils % (auto) 0.1 %; Eosinophils # (auto) 0.01 K/uL (0-0.5); Eosinophils % (auto) 0.1 %; Hematocrit (blood only) 29.4 % (42-52); Hemoglobin 10.1 g/dL (14.0-18.0); Immature Granulocytes # (auto) 0.01 K/uL (0.00-0.02); Immature Granulocytes % (auto) 0.1 %; Lymphocytes # (auto) 1.76 K/uL (1.2-3.4); Lymphocytes % (auto) 20.6 %; Mean Corpuscular Hemoglobin 31.3 pg (25-34); Mean Corpuscular Hgb Conc 34.4 g/dL (32-36); Monocytes # (auto) 0.88 K/uL (0.11-0.59); Monocytes % (auto) 10.3 %; Neutrophils # (auto) 5.89 K/uL (1.4-6.5); Neutrophils % (auto) 68.8 %; Platelet Count 140 K/uL (130-400); RDW Coefficient of Variation 14.2 % (11.5-14.5); RDW Standard Deviation 47.2 fL (36.4-46.3); Red Blood Count 3.23 M/uL (4.7-6.1); White Blood Count 8.56 K/uL (4.8-10.8)
[2021-03-05] MEDS: LACTATED RINGER'S 1,000 ML IV SCH (05:21)
[2021-03-05 05:41] LABS: BUN Creatinine Ratio 19.3 (10-20); Calcium 7.7 mg/dl (8.5-10.1); Creatinine Clr Calc Pharmacy 68.6 ml/min; Est GFR (African American) 70.8 ml/min; Est GFR (Non-African American) 61.1 ml/min; Magnesium 1.5 mg/dl (1.8-2.4); Potassium 3.7 mmol/L (3.5-5.1)
[2021-03-05] MEDS: LEVOTHYROXINE SODIUM 112 MCG TABLET PO SCH (05:52)
[2021-03-05] MEDS: CYCLOBENZAPRINE HCL 10 MG TAB PO SCH ×3 (05:53→20:08)
[2021-03-05] MEDS: POLYETHYLENE (MIRALAX) 17 GM PACK PO SCH ×3 (05:53→16:48)
[2021-03-05] MEDS: MAGNESIUM SULFATE / D5W 1 GM/100 ML BAG IV SCH ×2 (06:12→08:03)
--- NOTE | 2021-03-05 07:29 | Orthopedic Progress Note ---
Date of Service March 05, 2021 Assessment & Plan (1) Status post spinal surgery: Plan: PT for mobility standing x-rays when able drain to be monitored today given unexpectedly low output from drains overnight (concerning for possible clotting of drains, could also be due to lack of mobility in ICU), need to be monitored for post-op hematoma with q1h neurological checks of the lower extremity for the next 24 hours. Please keep in ICU or similar bed setting where this is possible and contact me if any new neurological findings are noted. Plan communicated with chute puller RN. Admission and Anticipated Discharge Date Admission Date: March 04, 2021 Subjective pain well controlled no new numbness/weakness admitted to ICU post-op by hospitalist service for hypotension and tachycardia post-op Hgb 10.1 this AM Glucose 141 this AM Physical Exam Physical Exam: vitals: see vital signs section; on 2LNP this AM dressing: clean, dry intact drain: record as 0/0 cc/8hr last night. Small amount of sangiounous drainage in both drains this AM vascular: no calf tenderness or swelling bilaterally. no signs of DVT Musculoskeletal: 5/5 motor strength bilateral L2-S1 except right L5 3/5, left S1 4/5, right S1 4+/5 Neurologic: Sensation 2/2 to light touch bilateral L2-S1. Results & Data ([facility]) Vital Signs (Past 12 Hours) Vital Signs Temp Pulse Resp BP Pulse Ox 03/05/21 06:10 85 23 117/71 95 03/05/21 05:10 93 H 23 142/65 H 95 03/05/21 04:10 37.1 C 80 12 91/40 L 93 03/05/21 03:10 94 H 23 123/58 L 95 03/05/21 02:10 94 H 22 118/58 L 96 03/05/21 01:11 81 20 113/51 L 95 03/05/21 00:10 36.7 C 94 H 19 101/59 L 97 03/04/21 23:10 85 20 117/62 98 03/04/21 22:10 96 H 21 101/60 98 03/04/21 21:09 96 H 20 93/52 L 95 03/04/21 20:10 36.6 C 96 H 20 101/61 95 03/04/21 19:40 102 H 16 122/67 97 Diagnostic Findings post-op x-rays pending PG Care Time/CCT Total # of Minutes Spent Total Time Spent with Patient: Total time spent is greater than 50% in coordination of care (as documented) at patient's floor/unit and/or counseling patient: Coding Level of Care Code None Diagnoses Status post spinal surgery Z98.890
[2021-03-05 07:34] LABS: Estimated Average Glucose 143 mg/dl; Hemoglobin A1C 6.6 % (4.5-5.6)
--- NOTE | 2021-03-05 07:43 | Critical Care Progress Note ---
Date of Service March 05, 2021 Assessment & Plan (1) Lumbar stenosis with neurogenic claudication: (2) Tachycardia: (3) Hyperkalemia: (4) Chronic kidney disease: Plan: Impression: 75-year-old male postop day 2 extensive spine surgery with large EBL. He is brought to the ICU for postsurgical monitoring. He is been hemodynamically stable. Recommendations: 1. Tachycardia: Suspect this is physiologic response to the patient's stresses from today. Continue home dose of metoprolol. 2. Acute blood loss anemia: We will continue to follow hemoglobin and hematocrit. Transfusion thresholds are likely less than 8. Per orthospine, they want to continue every hour neuro checks for 24 hours to ensure no development of hematoma. Unclear if this can be accomplished on the floor. If not we will continue ICU level care for neuro checks. 3. Chronic kidney disease: Creatinine appears to be at baseline. Will continue to follow electrolytes. 4. Hyperkalemia: Resolved. Okay to restart TOMI inhibitor. 5. Diabetes: Improve glycemic control today. Continue current regimen. Okay to restart Metformin as serum creatinine is stable. 6. Hypertension: Continue metoprolol. Add back lisinopril today. Discontinue arterial line. 7. PT OT and activity deferred to the operative team. 8. Perioral numbness: We will ensure that his postanesthesia evaluation is aware of these findings 9 status post spine surgery: Per orthospine. Pain control per surgery. To need frequent neuro checks. If these can be accomplished on the floor I think the patient can be downgraded but will defer to nursing as to whether or not his acuity exceeds the capacity on the floor. Discussed with bedside ICU nurse. Admission and Anticipated Discharge Date Admission Date: March 04, 2021 Subjective Patient seen and examined. He is up to a chair eating breakfast. He complains of some numbness on his left upper lip. He is not having any difficulty with chewing or swallowing. Voice is the same. He is having some back pain. Physical Exam Constitutional: WD/WN, vitals as above Neck: trachea midline, no thyromegaly Respiratory: normal respiratory effort, lungs clear to auscultation Cardiovascular: RRR, no murmur, no edema Gastrointestinal (Abdomen): normal bowel sounds, soft, nontender, no hepatosplenomegaly Musculoskeletal: Extremities: extremities normal to inspection Skin: no rashes, warm and dry Lymphatic: no cervical lymphadenopathy Results & Data Results & Data ([facility]) Vital Signs (Past 12 Hours) Vital Signs Temp Pulse Resp BP Pulse Ox 03/05/21 06:10 85 23 117/71 95 03/05/21 05:10 93 H 23 142/65 H 95 03/05/21 04:10 37.1 C 80 12 91/40 L 93 03/05/21 03:10 94 H 23 123/58 L 95 03/05/21 02:10 94 H 22 118/58 L 96 03/05/21 01:11 81 20 113/51 L 95 03/05/21 00:10 36.7 C 94 H 19 101/59 L 97 03/04/21 23:10 85 20 117/62 98 03/04/21 22:10 96 H 21 101/60 98 03/04/21 21:09 96 H 20 93/52 L 95 03/04/21 20:10 36.6 C 96 H 20 101/61 95 03/04/21 19:40 102 H 16 122/67 97 Critical Care Results & Data Vital Signs (Past 12 Hours) Vital Signs Temp Pulse Resp BP Pulse Ox 03/05/21 06:10 85 23 117/71 95 03/05/21 05:10 93 H 23 142/65 H 95 03/05/21 04:10 37.1 C 80 12 91/40 L 93 03/05/21 03:10 94 H 23 123/58 L 95 03/05/21 02:10 94 H 22 118/58 L 96 03/05/21 01:11 81 20 113/51 L 95 03/05/21 00:10 36.7 C 94 H 19 101/59 L 97 03/04/21 23:10 85 20 117/62 98 03/04/21 22:10 96 H 21 101/60 98 03/04/21 21:09 96 H 20 93/52 L 95 03/04/21 20:10 36.6 C 96 H 20 101/61 95 03/04/21 19:40 102 H 16 122/67 97 Lab & Micro Results (Past 24 Hours) RBC 3.23 M/uL (4.7-6.1) L 03/05/21 WBC 8.56 K/uL (4.8-10.8) 03/05/21 Hgb 10.1 g/dL (14.0-18.0) L 03/05/21 Hct 29.4 % (42-52) L 03/05/21 MCV 91.0 fL (80-100) 03/05/21 MCH 31.3 pg (25-34) 03/05/21 MCHC 34.4 g/dL (32-36) 03/05/21 RDW Standard Deviation 47.2 fL (36.4-46.3) H 03/05/21 RDW Coefficient of Variation 14.2 % (11.5-14.5) 03/05/21 Plt Count 140 K/uL (130-400) 03/05/21 MPV 10.0 fL (7.4-10.4) 03/05/21 Neutrophils (%) (Auto) 68.8 % 03/05/21 Lymphocytes (%) (Auto) 20.6 % 03/05/21 Monocytes # (Auto) 0.88 K/uL (0.11-0.59) H 03/05/21 Eosinophils # (Auto) 0.01 K/uL (0-0.5) 03/05/21 Immature Granulocyte % (Auto) 0.1 % 03/05/21 Neutrophils # (Auto) 5.89 K/uL (1.4-6.5) 03/05/21 Lymphocytes # (Auto) 1.76 K/uL (1.2-3.4) 03/05/21 Monocytes # (Auto) 0.88 K/uL (0.11-0.59) H 03/05/21 Eosinophils # (Auto) 0.01 K/uL (0-0.5) 03/05/21 Basophils # (Auto) 0.01 K/uL (0-0.2) 03/05/21 Immature Granulocyte # (Auto) 0.01 K/uL (0.00-0.02) 03/05/21 Na 140 mmol/L (136-145) 03/05/21 K 3.7 mmol/L (3.5-5.1) 03/05/21 Cl 108 mmol/L (98-107) H 03/05/21 CO2 27 mmol/L (21-32) 03/05/21 Anion Gap 4.0 (3-11) 03/05/21 BUN 23 mg/dl (7-18) H 03/05/21 Creatinine 1.17 mg/dl (0.6-1.4) 03/05/21 Estimated GFR ( Amer) 70.8 ml/min 03/05/21 Estimated GFR (Non-Af Amer) 61.1 ml/min 03/05/21 BUN/Creatinine Ratio 19.3 (10-20) 03/05/21 Glu 141 mg/dl (70-99) H 03/05/21 Ca 7.7 mg/dl (8.5-10.1) L 03/05/21 Phosphorus Level 3.0 mg/dl (2.5-4.9) 03/05/21 Mg 1.5 mg/dl (1.8-2.4) L 03/05/21 04:42 03/05/21 Calcium Level 7.7 mg/dl (8.5-10.1) L 03/05/21 04:42 03/05/21 Diagnostic Findings (Past 24 Hours) Lumbar Spine X-Ray 03/04/21 07:15 XR lumbar spine 2-3V CLINICAL HISTORY: L4-S1 POSTERIOR LUMBAR DECOMPRESSION, FUSION, INTERBODY COMPARISON STUDY: Lumbar spine 01/28/2021. FINDINGS: 19 images of the lumbar spine demonstrate posterior decompression and fusion from L4 through S1 with pedicle screws in place. The hardware appears intact. IMPRESSION: Posterior decompression and fusion from L4 through S1. The hardware appears intact. ACT 112: Negative or not required by law. Electronically signed by: Sukhwinder Calle M.D. 03/04/2021 3:51 PM I & O Totals 24 Hours 03/04/21 03/05/21 03/06/21 06:59 06:59 06:59 Intake Total 6410 / 6410 Output Total 4045 / 4045 Balance 2365 / 2365 Cumulative 02/09/21 16:51 thru 03/05/21 06:30 Intake Total 6410 Output Total 4045 Balance 2365 RT Ventilator Mngmt (Last Documented) Ventilator Ordered Settings Respiratory Rate 23 03/05/21 06:10 Ventilator - PT Measurements Respiratory Rate 23 Coding Level of Care Code 14970 Subseq Hosp Care Lvl 3 Diagnoses Lumbar stenosis with neurogenic claudication M48.062 Tachycardia R00.0 Hyperkalemia E87.5 Chronic kidney disease N18.9
[2021-03-05] MEDS: ROSUVASTATIN CALCIUM 5 MG TAB PO SCH (07:58)
[2021-03-05] MEDS: GABAPENTIN 300 MG CAP PO SCH ×2 (07:58→20:07)
[2021-03-05] MEDS: CYANOCOBALAMIN 500 MCG TABLET (VITAMIN B-12) PO SCH (07:58)
[2021-03-05] MEDS: FENOFIBRATE NANOCRYSTALLIZED 145 MG TABLET PO SCH (07:58)
[2021-03-05] MEDS: PANTOprazole 40 MG TAB PO SCH (07:59)
[2021-03-05] MEDS ORDERED: metFORMIN HCL 500 MG TAB PO SCH (08:00)
[2021-03-05] MEDS: OXYBUTYNIN CHLORIDE 5 MG TAB PO SCH ×2 (08:02→20:08)
[2021-03-05] MEDS: METOPROLOL TARTRATE 50 MG TAB PO SCH ×2 (08:03→20:09)
[2021-03-05] MEDS: TAMSULOSIN HCL 0.4 MG CAP PO SCH (08:03)
[2021-03-05] MEDS ORDERED: ACETAMINOPHEN 1,000 MG/100 ML VIAL IV STA (08:24)
[2021-03-05] MEDS ORDERED: lisinopril 40 MG TAB PO SCH ×2 (09:00)
[2021-03-05] MEDS ORDERED: OMEGA-3 (PURIFIED FISH OIL) 1 GM CAP PO SCH (09:00)
[2021-03-05] MEDS ORDERED: FUROSEMIDE 40 MG TAB PO SCH (09:00)
--- NOTE | 2021-03-05 10:09 | Pharmacy Report ---
Pharmacy Glycemic Short Note 2 - Date of Service March 05, 2021 - Glycemic Short BSG Results (Last 24 hours): 03/04/21 03/04/21 03/04/21 12:44 14:38 15:05 Glucose 299 H POC Glucose POC Glucose (other) 275 H 303 H 03/04/21 03/04/21 03/04/21 16:08 17:01 18:06 Glucose POC Glucose 320 H* 314 H* 296 H POC Glucose (other) 03/04/21 03/04/21 03/04/21 21:39 22:35 23:54 Glucose 210 H POC Glucose 207 H 206 H POC Glucose (other) 03/05/21 03/05/21 03/05/21 03:55 04:42 07:18 Glucose 141 H POC Glucose 153 H 145 H POC Glucose (other) OUTPATIENT ANTIDIABETIC REGIMEN: * Lantus 50 units HS, Novolog 10 units TID, metformin * A1c = 6.6% 03/05/21 ASSESSMENT: 03/05 * BSGs better controlled this AM * Fasting BSG 145 this AM w/ 60 unis Lantus on board and following receipt of 11 units correctional insulin overnight * Effects of DXM given in OR should be dissipating over the course of the day today * Will resume reduced dose Lantus this evening * Plan to continue stress level 3 (high stress) Novolog doses initially this AM given total daily insulin requirements as outpt ~80 units/day 03/04 * 75 year old male now s/p spinal surgery. With tachycardia postop now transferred to ICU for monitoring. * Patient received 16 units in OR this afternoon, postop BSG elevated at 296 mg/dL - plan to give 10 units IV insulin * Will stress home dose basal and give 60 units x 1 now to account for DXM given in OR earlier * Begin stress of 3 dosing for novolog with overnight checks PLAN FOR INPATIENT GLYCEMIC CONTROL: * Hold outpatient oral diabetes medications (metformin) * Basal insulin * Lantus 40 units Q HS * Bolus insulin * NovoLog per scale ACHS or Q6hrs while NPO * Goal Range: Low 110 mg/dL - High 140 mg/dL * Correction Factor: 15 mg/dL/unit * Nutritional / Prandial insulin per carb ratio of 1 unit per 5 grams CHO consumed PLAN FOR DISCHARGE: * May resume home insulin and metformin regimen on discharge if no contraindications present, A1c 6.6% at goal
[2021-03-05 10:39] LABS: Hematocrit (blood only) 30.5 % (42-52); Hemoglobin 10.4 g/dL (14.0-18.0)
--- NOTE | 2021-03-05 11:48 | Communication Note ---
Date of Service: March 05, 2021 Called re: transient numbness of right foot Patient assessed first around 8am with right L4, L5 and S1 1/2 light touch, otherwise unchanged neuro exam Deep drain set to suction Patient made npo Patient re-assessed at 11:30am. neurologically back to baseline with numbness resolved drain output 30cc deep, 35cc superficial no significant back pain no radicular symptoms Musculoskeletal: 5/5 motor strength bilateral L2-S1 except right L5 3/5, left S1 4/5, right S1 4+/5 Neurologic: Sensation 2/2 to light touch bilateral L2-S1. Plan: - may continue previous diet - continue q1h neurological assessment; please contact me if any new deficits noted - continue deep drain on suction setting
[2021-03-05] MEDS: HYDROCODONE/ACETAMOPHEN 5/325MG TAB PO PRN (13:24)
--- NOTE | 2021-03-05 14:27 | XRay Report ---
LUMBAR SPINE 2 VIEWS CLINICAL HISTORY: Postoperative examination. Spine surgery. FINDINGS: AP and lateral standing views of the lumbar spine are compared to study dated 03/04/2021. Th e skeletal structures are osteopenic. There is no radiographic evidence of acute fracture or malalign ment. Vertebral body height is maintained throughout the lumbar spine. There is minimal retrolisthesi s at L3-L4 and L4-L5. Alignment is otherwise preserved. There is postoperative change from laminectom y and posterior fusion at L4-S1. Interpedicular screws are present at all levels. The orthopedic hard shook appears intact. Large anterior and lateral marginal osteophytes are seen throughout. The spinous processes are intact as visualized. Moderate disc space narrowing is seen at all lumbar levels. The visualized bony pelvis appears intact. Sclerotic change is noted in the sacroiliac joints. A right hi p arthroplasty is in place. There is no radiographic evidence of high-grade bowel obstruction. The mi ldly distended bowel loops suggest postoperative ileus. A surgical drain is seen posteriorly. There i s advanced atherosclerotic calcification of the abdominal aorta. IMPRESSION: 1. There is postoperative change from L4-S1 spinal fusion as above. The orthopedic hardware appears i ntact. 2. No acute bony abnormality seen. 3. Distended small bowel loops are nonspecific and likely represent a postoperative ileus. Clinical c orrelation will be required. Dictated: 03/05/2021 1:49 PM Transcribed: 03/05/2021 2:18 PM Danika [id number] [email or web address] Electronically signed by: Jaiml Silver M.D. 03/05/2021 2:26 PM
[2021-03-05] MEDS ORDERED: MAGNESIUM OXIDE 400 MG TAB PO STA (15:24)
[2021-03-05] MEDS: ICU ELECTROLYTE REPLACEMENT PROTOCOL SCH (15:48)
--- NOTE | 2021-03-05 16:09 | Hospitalist Progress Note ---
Date of Service March 05, 2021 Assessment & Plan (1) Lumbar stenosis with neurogenic claudication: (2) Lumbar spinal stenosis: Plan: S/P L4-S1 Posterior Lumbar Instrumentation and Fusion, L5-S1 posterior decompression, Local Autograft, Allograft by Dr. Polanco Patient transferred to the ICU for close monitor Most recent hemoglobin 9.9 Continue incentive spirometry PT/OT eval as per Ortho Fall precaution Continue monitor H&H and transfuse if H/H dropped below 8 (3) Acute postoperative anemia due to greater than expected blood loss: Plan: Anemia of acute blood loss Due to recent orthopedic procedure hemoglobin 9.9 (preop hemoglobin was between 15-16) Continue monitoring H&H (4) Hypomagnesemia: Plan: Magnesium 1.5 Plan replaced Continue monitor electrolytes (5) Tachycardia: Plan: Mostly due to hypovolemia vs electrolytes abnormality Received IV fluid continue metoprolol (6) Hyperkalemia: Plan: K on admission 5.3 K normalized Continue monitor BMP (7) Chronic kidney disease: Plan: Creatinine 1.17 today Stable (8) BPH (benign prostatic hyperplasia): Plan: Continue Flomax daily (9) Diabetes: Plan: Most recent hemoglobin A1c 6.6 On insulin and NovoLog sliding scale Continue monitor blood sugar (10) HTN (hypertension): Plan: BP has been in the low side We will hold lisinopril (11) HLD (hyperlipidemia): Plan: Continue fish oil and fenofibrate (12) Hypothyroid: Plan: Continue levothyroxine Plan: DVT Prophylaxis Per Surgery Protocol Admission and Anticipated Discharge Date Admission Date: March 04, 2021 Subjective Patient was seen and examined for postop follow-up Sitting in chair with no distress watching TV Patient said that he does have some pain from the surgical area Denies any chest pain, palpitation, dizziness, shortness of breath. Physical Exam Physical Exam: General- No acute distress Head- atraumatic Eyes- PERRL, EOMI, ENT- oropharynx clear Neck- supple, no JVD Lungs- clear to auscultation Heart- regular rhythm; no murmur Abdomen- normal bowel sounds, soft, nontender Extremities- no calf tenderness Neuro- alert, oriented x 3; PERRL, EOMI; no facial palsy; no dysarthria Skin- warm & dry Results & Data Results & Data ([facility]) Vital Signs (Past 12 Hours) Vital Signs Temp Pulse Resp BP Pulse Ox 03/05/21 11:13 37.2 C 03/05/21 09:00 100 H 22 97 03/05/21 08:11 111 H 30 H 95 03/05/21 08:00 104 H 03/05/21 07:10 106 H 13 110/44 L 95 03/05/21 06:10 85 23 117/71 95 03/05/21 05:10 93 H 23 142/65 H 95 03/05/21 04:10 37.1 C 80 12 91/40 L 93
[2021-03-05] MEDS: POTASSIUM CHLORIDE CRTAB 20 MEQ TABCR PO SCH ×2 (16:45→20:07)
[2021-03-05 18:17] LABS: Hematocrit (blood only) 28.5 % (42-52); Hemoglobin 9.9 g/dL (14.0-18.0)
[2021-03-05] MEDS ORDERED: SODIUM CHLORIDE 0.9% 1000ML 1,000 ML IV ONE (18:47)
[2021-03-05 19:31] LABS: BUN Creatinine Ratio 17.1 (10-20); Calcium 8.1 mg/dl (8.5-10.1); Creatinine Clr Calc Pharmacy 45.6 ml/min; Est GFR (African American) 42.6 ml/min; Est GFR (Non-African American) 36.8 ml/min; Potassium 4.2 mmol/L (3.5-5.1)
--- NOTE | 2021-03-05 19:49 | Communication Note ---
Date of Service: March 05, 2021 called re: return of right foot numbness patient denies any bowel incontinence, denies saddle paresthesia no urination since villareal removal this AM, bladder scan 2 hours ago 100cc MAP 82 Hgb 9.9 drain outputs 85 superficial, 55 deep in 8 hour dressing clean, dry, intact. no fluid collection palpable neurological assessment unchanged vs. pre-op exception right L5 1/2 numbness, intermittent as per patient Musculoskeletal: 5/5 motor strength bilateral L2-S1 except right L5 3/5, left S1 4/5, right S1 4+/5 Neurologic: Sensation 2/2 to light touch bilateral L2-S1 except right L5 1/2 Differential diagnosis: - right L5 irritation from decompression procedure - right L5 foraminal/lateral recess persistent stenosis, worsened with post-op inflammation - post-op hematoma - low on differential given return of active drainage from drains, no fluid collection palpable, focal neurological deficit that is sensory only Plan: - maintain MAP >85 to optimize spinal perfusion hospitalist and critical care involved; plan communicated to daytime and nighttime RN - continue q1h neuro monitoring; please page if any new neurological deficits noted - will start IV steroids to help reduce post-op inflammation - please page if any issues with urination once rehydrated if post-void bladder scan > 200cc Kristin Alvarado MD Spine Surgeon [facility]
[2021-03-05] MEDS ORDERED: methylPREDNISolone 250 MG in SYRINGE 0 ML IV SCH (20:00)
[2021-03-05] MEDS: DOCUSATE SODIUM/SENNA 50/8.6MG TAB PO SCH (20:07)
[2021-03-05] MEDS: INSULIN GLARGINE SOLOSTAR 100 UNITS/ML 3 ML PEN SC SCH (20:14)
[2021-03-05] MEDS: DEXTROSE 5% IV SCH (20:59)
[2021-03-05] MEDS: METHYLPREDNISOLONE IV SCH (20:59)
--- NOTE | 2021-03-05 21:34 | Communication Note ---
Date of Service: March 05, 2021 Called in re: bladder scan > 200 post-villareal removal patient received 2 tabs of [place] 5 at 1:24pm and was significantly drowsy for several hours after as per RN feels urge to pee with pressure on bladder no changes to previous neurological assessment 1 hour prior Musculoskeletal: 5/5 motor strength bilateral L2-S1 except right L5 3/5, left S1 4/5, right S1 4+/5 Neurologic: Sensation 2/2 to light touch bilateral L2-S1 except right L5 1/2 rectal tone normal, voluntary contraction 2/2 perianal light touch and sharp touch 2/2 patient accompanied to commode by , voided 250cc independently post-void measurement 400cc straight cath performed, resistance noted with insertion in keeping with BPH, 400cc drained plan: - STAT MRI to assess for any evidence of compression at surgical site from possible fluid collection - continue bladder scans q4h with in/out as needed for >500cc, if needed more than twice, please leave villareal in - RN to discuss with hospitalist/critical care team re: possibly of starting medication for enlarge prostate given low BP - plan discussed with RN Kristin Alvarado MD Spine Surgeon [facility]
[2021-03-05] MEDS ORDERED: GADOBUTROL 65ML VIAL IV ONE (22:26)
--- NOTE | 2021-03-05 23:39 | Orthopedic Progress Note ---
Date of Service March 06, 2021 Assessment & Plan Admission and Anticipated Discharge Date Admission Date: March 04, 2021 Results & Data [facility]) Vital Signs (Past 12 Hours) Vital Signs Pulse Pulse Resp BP BP Pulse Ox 03/05/21 18:14 88 24 85/49 L 96 03/05/21 17:29 95 H 26 H 80/47 L 97 03/05/21 16:29 96 H 26 H 86/44 L 95 03/05/21 15:00 95 H 133/55 L 03/05/21 14:00 86 130/50 L 03/05/21 13:00 86 136/57 L 03/05/21 12:00 86 130/54 L PG Care Time/CCT Total # of Minutes Spent Total Time Spent with Patient: Total time spent is greater than 50% in coordination of care (as documented) at patient's floor/unit and/or counseling patient: Coding
--- NOTE | 2021-03-05 23:41 | Communication Note ---
Date of Service: March 06, 2021 12:02 AM STAT MRI and CT scan of lumbar spine completed MRI lumbar spine reviewed hematoma adjacent to thecal sac at L5-S1 surgical bed with impingement of the thecal sac L5-S1 persistent severe right foraminal stenosis preliminary report: " MRI L SPINE : Endplate osteophytes and facet arthropathy seen throughout. Multilevel disc desiccation and disc space narrowing. Status post L4-S1 posterior fixation and decompression. At the L5-S1 level there is a deep soft tissue fluid collection estimated to measure 3 cm AP, 1.7 cm CC and 2 cm TRV. This collection abuts the dural surface and compresses the thecal sac resulting in severe localized narrowing. There is compression of the nerve roots. There also is a broad-based disc bulge at this level measuring 7 mm AP. No significant post contrast- enhancement. There is moderate to severe right L5-S1 foraminal narrowing which may in part be secondary to slightly low position of the adjacent pedicular screw. Similar changes noted at the right L4-L5 neural foramen. The conus is intact. Midline posterior incision. Impression new. Fluid collection at the L5-S1 level which in conjunction with the broad-based disc bulge results in severe canal stenosis. This collection may represent a hematoma. Possible low position of the right pedis are screws however this may be artifactual. Consider CT scan for further evaluation. " CT lumbar spine reviewed L4-S1 posterior lumbar screws in acceptable position report pending Diagnosis: post-op hematoma with urinary retention and thecal sac compression suggestive of cauda equina Plan: - given imaging and exam findings concerning for post-op hematoma with compression of the thecal sac along with urinary retention, an urgent I+D is recommended - given post-op numbness in the right L5 distribution, and persistent foraminal stenosis after prior decompression, will perform revision L5-S1 laminectomy and right medial facetectomy and foraminotomy at the same setting - I directly discussed plan with patient but given recent use of medication for sedation for imaging, will obtain informed consent immediately prior to the OR - Case booked as emergency add-on and discussed with pit manager infection prevention coordinator - BUNDLE HELPER aware of need for pre-op bloodwork, antibiotics, and optimization by hospitalist/critical care team for upcoming surgery Kristin Alvarado MD Spine Surgeon [facility]
[2021-03-05] MEDS ORDERED: SODIUM CHLORIDE 0.9% 250 ML IV PRN (23:48)
--- NOTE | 2021-03-05 23:48 | Anesthesiology Consultation ---
Date of Service March 05, 2021 Assessment & Plan (1) Encounter for pre-operative examination: Chart Review Chart Review: Acceptable Risk for Surgery and Patient NOT seen in Pre Admission Testing Will order type and crossmatch for two units in preparation for the operating room. Consults Requested none History Surgery Operation Date: 03/04/21 07:15 Proposed Procedures p L4-S1 Posterior Lumbar Decompression and Fusion, Interbody Fusion, Autograft, Allograft - Kristin Alvarado MD Plan to bring patient back to OR 03/06/21. Height/Weight Height: 5 ft 11 in Weight: 108.4 kg Allergies Allergy/AdvReac Type Severity Reaction Status Date / Time niacin Allergy Mild red and Verified 03/04/21 05:42 sweating Medications Home Medications Medication Instructions Recorded Confirmed Last Taken aspirin 81 mg tablet,delayed 81 mg PO QAM 10/11/19 02/24/21 03/03/21 06:15 release cyanocobalamin (vitamin B-12) 1,000 mcg PO QAM 10/11/19 02/24/21 03/03/21 06:15 1,000 mcg tablet (Vitamin B-12) fenofibrate nanocrystallized 145 145 mg PO QAM 10/11/19 02/24/21 03/03/21 06:15 mg tablet furosemide 40 mg tablet 40 mg PO QAM 10/11/19 02/24/21 03/03/21 06:15 gabapentin 300 mg capsule 300 mg PO BID 10/11/19 03/04/21 03/03/21 06:15 insulin aspart U-100 100 unit/mL 10 unit SUBCUT TIDM 10/11/19 03/04/21 03/03/21 16:30 subcutaneous solution (Novolog U-100 Insulin aspart) insulin glargine 100 unit/mL 50 unit SUBCUT HS 10/11/19 03/04/21 03/02/21 21:30 subcutaneous solution (Lantus U-100 Insulin) levothyroxine 112 mcg tablet 112 mcg PO QAM 10/11/19 02/24/21 03/03/21 06:15 lisinopril 40 mg tablet 40 mg PO QAM 10/11/19 02/24/21 03/03/21 06:15 metformin 1,000 mg tablet 1,000 mg PO BID 10/11/19 03/04/21 03/03/21 06:15 metoprolol tartrate 50 mg tablet 50 mg PO BID 10/11/19 03/04/21 03/03/21 06:15 omega 5-[id number]-fish oil 1,000 mg 1 cap PO QAM 10/11/19 02/24/21 03/03/21 06:15 (120 mg-180 mg) capsule (Fish Oil) omeprazole 20 mg tablet,delayed 20 mg PO QAM 10/11/19 02/24/21 03/03/21 06:15 release oxybutynin chloride 5 mg tablet 5 mg PO BID 10/11/19 03/04/21 03/03/21 06:15 rosuvastatin 5 mg tablet 5 mg PO QAM 10/11/19 02/24/21 03/03/21 06:15 tamsulosin 0.4 mg capsule 0.4 mg PO QAM 10/11/19 02/24/21 03/03/21 06:15 meloxicam 7.5 mg tablet 7.5 mg PO QA 02/24/21 02/24/21 03/03/21 06:15 Active Medications Generic Name Dose Route Start Last Admin Trade Name Freq PRN Reason Stop Dose Admin Hydrocodone Bitart/Acetaminophen 1 - 2 tab 03/04/21 17:41 03/05/21 13:24 Hydrocodone/Acetamophen 5/325mg Tab PO 03/18/21 17:40 2 tab Q4H PRN Administration Pain & Pre PT Cyanocobalamin 1,000 mcg 03/05/21 09:00 03/05/21 07:58 Cyanocobalamin 500 Mcg Tablet (Vitamin B-12) PO 04/04/21 08:59 1,000 mcg QAM WILLIS Administration Cyclobenzaprine HCl 10 mg 03/04/21 22:00 03/05/21 20:08 Cyclobenzaprine Hcl 10 Mg Tab PO 04/03/21 21:59 10 mg Q8 WILLIS Administration Fenofibrate 145 mg 03/05/21 09:00 03/05/21 07:58 Fenofibrate Nanocrystallized 145 Mg Tablet PO 04/04/21 08:59 145 mg QAM WILLIS Administration Gabapentin 300 mg 03/04/21 21:00 03/05/21 20:07 Gabapentin 300 Mg Cap PO 04/03/21 20:59 300 mg BID WILLIS Administration Hydromorphone HCl 0.5 mg 03/04/21 17:41 03/05/21 22:08 Hydromorphone Inj 0.5 Mg/0.5 Ml Syr IV 03/18/21 17:40 0.5 mg Q3H PRN Administration MOD pain (scale 4-6) & Pre PT Methylprednisolone 250 mg/ 54 mls @ 216 mls/hr 03/05/21 20:00 03/05/21 21:20 Dextrose IV 03/06/21 14:14 Infused Q6H WILLIS Infusion Insulin Aspart 0 units 03/04/21 18:30 03/05/21 20:13 Insulin Aspart 100 Units/Ml 3 Ml Pen SC 04/03/21 18:29 Not Given ACHS WILLIS Insulin Glargine 40 units 03/05/21 21:00 03/05/21 20:14 Insulin Glargine Solostar 100 Units/Ml 3 Ml Pen SC 04/04/21 20:59 40 units HS WILLIS Administration Protocol Levothyroxine Sodium 112 mcg 03/05/21 06:30 03/05/21 05:52 Levothyroxine Sodium 112 Mcg Tablet PO 04/04/21 06:29 112 mcg DAILYBB WILLIS Administration Lisinopril 40 mg 03/05/21 09:00 03/05/21 13:26 Lisinopril 40 Mg Tab PO 04/04/21 08:59 40 mg QAM WILLIS Administration Metoprolol Tartrate 50 mg 03/04/21 21:00 03/05/21 20:09 Metoprolol Tartrate 50 Mg Tab PO 04/03/21 20:59 Not Given BID WILLIS Miscellaneous 1 ea 03/05/21 18:00 03/05/21 15:48 Icu Electrolyte Replacement Protocol N/A 03/12/21 17:59 1 ea BID@06,18 WILLIS Administration Protocol Oxybutynin Chloride 5 mg 03/04/21 21:00 03/05/21 20:08 Oxybutynin Chloride 5 Mg Tab PO 04/03/21 20:59 5 mg BID WILLIS Administration Pantoprazole Sodium 40 mg 03/05/21 09:00 03/05/21 07:59 Pantoprazole 40 Mg Tab PO 04/04/21 08:59 40 mg QAM WILLIS Administration Polyethylene Glycol 17 gm 03/05/21 06:00 03/05/21 16:48 Polyethylene (Miralax) 17 Gm Pack PO 04/04/21 05:59 17 gm Q6 WILLIS Administration Rosuvastatin Calcium 5 mg 03/05/21 09:00 03/05/21 07:58 Rosuvastatin Calcium 5 Mg Tab PO 04/04/21 08:59 5 mg QAM WILLIS Administration Senna/Docusate Sodium 2 tab 03/04/21 21:00 03/05/21 20:07 Docusate Sodium/Senna 50/8.6mg Tab PO 04/03/21 20:59 2 tab HS WILLIS Administration Tamsulosin HCl 0.4 mg 03/05/21 09:00 03/05/21 08:03 Tamsulosin Hcl 0.4 Mg Cap PO 04/04/21 08:59 0.4 mg QAM WILLIS Administration Past Medical History Medical History BPH (benign prostatic hyperplasia) Chronic back pain Diabetes mellitus type 1 Hyperlipidemia Hypertension Hypothyroidism Lumbar stenosis with neurogenic claudication Spinal stenosis Transient ischemic attack (TIA) 2016--no deficits, no neurologist Past Family History Family History Father Family history of diabetes mellitus Other No family history of adverse response to anesthesia Past Surgical History Surgical History History of colonoscopy with polypectomy History of left inguinal hernia repair History of lumbar surgery History of revision of total replacement of right hip joint History of tonsillectomy History of total right hip replacement History of wisdom tooth extraction L4-S1 posterior lumbar decompression 03/04/21: Glidescope #3. 8.0 ETT. A-line. Tolerated GETA. Patient had some lip numbness post-surgery. Social History Smoking Status: Current every day smoker tobacco type: cigarettes Smoking cigarettes per day: 1/2-1 ppd Do You Dip or Chew Tobacco: No Hx Alcohol Use: No Alcohol type: beer alcohol intake frequency: holidays/special occasions only Hx Substance Use: No substance use type: does not use Physical Exam Vital Signs Last Vital Signs Temp 37.2 C 03/05/21 11:13 Pulse 88 03/05/21 18:14 Resp 24 03/05/21 18:14 BP 85/49 L 03/05/21 18:14 Pulse Ox 96 03/05/21 18:14 Testing Laboratory Results 03/05/21 17:46 03/05/21 19:05 Hemoglobin A1c 6.6 % (4.5-5.6) H 03/05/21 04:42 Blood Type A Positive 03/04/21 05:42 Antibody Screen NEGATIVE 03/04/21 05:42 03/05/21 03/05/21 20:12 16:01 POC Glucose 128 H 186 H Electrocardiogram Date: 02/25/21 Sinus bradycardia with 1st degree A-V block Otherwise normal ECG When compared with ECG of 25-FEB-2015 11:20, No significant change was found Chest X-Ray Date: 02/25/21 IMPRESSION: Cardiomegaly with no active disease in the chest.
[2021-03-06] MEDS: NORMOSOL-R 1,000 ML IV SCH ×3 (00:08→21:19)
[2021-03-06] MEDS: INSULIN ASPART 100 UNITS/ML 3 ML PEN SC SCH ×6 (00:11→21:12)
[2021-03-06] MEDS: POLYETHYLENE (MIRALAX) 17 GM PACK PO SCH ×4 (00:12→17:23)
[2021-03-06 00:28] LABS: Hematocrit (blood only) 26.6 % (42-52); Hemoglobin 9.2 g/dL (14.0-18.0)
[2021-03-06 00:39] LABS: INR 1.1 (0.9-1.1); Partial Thromboplastin Time 25.3 Seconds (21.0-31.0); Prothrombin Time 10.9 Seconds (9.0-12.0)
[2021-03-06 00:47] LABS: BUN Creatinine Ratio 20.9 (10-20); Calcium 8.3 mg/dl (8.5-10.1); Creatinine Clr Calc Pharmacy 62.9 ml/min; Est GFR (African American) 62.9 ml/min; Est GFR (Non-African American) 54.3 ml/min; Potassium 4.5 mmol/L (3.5-5.1)
[2021-03-06] MEDS: DEXTROSE 5% IV SCH ×3 (01:23→15:04)
[2021-03-06] MEDS: METHYLPREDNISOLONE IV SCH ×3 (01:23→15:04)
[2021-03-06] MEDS: CYCLOBENZAPRINE HCL 10 MG TAB PO SCH ×3 (05:04→21:15)
[2021-03-06] MEDS: LEVOTHYROXINE SODIUM 112 MCG TABLET PO SCH (05:05)
[2021-03-06 05:25] LABS: Hematocrit (blood only) 28.5 % (42-52); Hemoglobin 9.7 g/dL (14.0-18.0); Mean Corpuscular Hemoglobin 31.1 pg (25-34); Mean Corpuscular Volume 91.3 fL (80-100); Platelet Count 135 K/uL (130-400); RDW Coefficient of Variation 14.1 % (11.5-14.5); Red Blood Count 3.12 M/uL (4.7-6.1)
[2021-03-06 05:35] LABS: INR 1.1 (0.9-1.1); Prothrombin Time 10.9 Seconds (9.0-12.0)
[2021-03-06 05:41] LABS: BUN Creatinine Ratio 22.1 (10-20); Calcium 8.4 mg/dl (8.5-10.1); Est GFR (African American) 66.6 ml/min; Est GFR (Non-African American) 57.5 ml/min; Magnesium 2.5 mg/dl (1.8-2.4); Potassium 4.5 mmol/L (3.5-5.1)
[2021-03-06 05:42] LABS: Phosphorus 2.3 mg/dl (2.5-4.9)
[2021-03-06] MEDS: ICU ELECTROLYTE REPLACEMENT PROTOCOL SCH ×2 (05:48→16:55)
[2021-03-06] MEDS ORDERED: SODIUM PHOSPHATE 3 MMOL/1 ML INFUSION IV STA (05:50)
[2021-03-06] MEDS ORDERED: ceFAZolin 2000MG 2,000 MG/15 ML SYR IV ONE (06:00)
[2021-03-06] MEDS ORDERED: TRANEXAMIC ACID / 0.7% NACL 1,000 MG/100 ML BAG IV ONE ×2 (06:19)
[2021-03-06] MEDS ORDERED: SODIUM PHOSPHATE 15 MMOL in SODIUM CHLORIDE 0.9% 250 ML IV ONE (06:30)
--- NOTE | 2021-03-06 06:30 | Orthopedic Progress Note ---
Date of Service March 06, 2021 Assessment & Plan (1) Status post spinal surgery: Plan: patient awake, alert, provides informed consent for emergency evacuation of hematoma, revision L5-S1 laminectomy and right medial facetectomy and foraminotomy patient marked for surgery OR room being setup for patient Admission and Anticipated Discharge Date Admission Date: March 04, 2021 Subjective No new numbness or weakness noted by patient villareal inserted by nursing team patient optimized for surgery by critical care team denies bowel incontinence or saddle anesthesia Hgb 9.7 this AM Physical Exam Physical Exam: vitals: see vital signs section; on 3LNP this AM dressing: clean, dry, intact drain: 25 deep/60 superficial in 8 hour prior to midnight, AM measurements pending vascular: no calf tenderness or swelling bilaterally. no signs of DVT Musculoskeletal: 5/5 motor strength bilateral L2-S1 except right L5 3/5, left S1 4/5, right S1 4+/5 Neurologic: Sensation 2/2 to light touch bilateral L2-S1 except right L5 and S1 1/2, no saddle anesthesia Results & Data ([facility]) Vital Signs (Past 12 Hours) Vital Signs Temp Pulse Resp BP Pulse Ox 03/06/21 05:01 91 H 21 137/65 93 03/06/21 04:02 37.1 C 78 18 100/64 97 03/06/21 03:01 93 H 22 135/64 93 03/06/21 02:01 92 H 21 135/63 93 03/06/21 01:01 99 H 20 137/60 93 03/06/21 00:04 37 C 101 H 14 135/57 L 94 03/05/21 23:01 109 H 19 147/65 H 95 03/05/21 21:04 101 H 22 102/51 L 96 03/05/21 20:15 36.6 C 102 H 22 93/63 L 96 03/05/21 19:54 97 H 23 122/61 99 03/05/21 19:14 95 H 16 113/55 L 95 PG Care Time/CCT Total # of Minutes Spent Total Time Spent with Patient: Total time spent is greater than 50% in coordination of care (as documented) at patient's floor/unit and/or counseling patient: Coding Level of Care Code None Diagnoses Status post spinal surgery Z98.890
[2021-03-06] MEDS ORDERED: KETAMINE 50 MG/5 ML SYRINGE ONE (06:31)
[2021-03-06] MEDS ORDERED: ONDANSETRON INJ 2 MG/ML 2 ML VIAL ONE (06:31)
[2021-03-06] MEDS ORDERED: fentaNYL citrate 100 MCG/2 ML VIAL ONE ×3 (06:31→11:07)
[2021-03-06] MEDS ORDERED: ROCURONIUM BROMIDE 10 MG/ML 5 ML VIAL IV ONE (06:31)
[2021-03-06] MEDS ORDERED: DEXAMETHASONE SOD INJ 4 MG/ML VIAL ONE (06:31)
[2021-03-06] MEDS ORDERED: PROPOFOL IV EMULSION 10 MG/ML 20 ML VIAL IV ONE ×2 (06:31→10:42)
[2021-03-06] MEDS ORDERED: ACETAMINOPHEN 1000 MG/100 ML IV IV ONE (06:37)
[2021-03-06] MEDS ORDERED: GELATIN SPONGE SZ 100 ONE (07:02)
[2021-03-06] MEDS ORDERED: VANCOMYCIN HCL 1000MG/20ML VIAL ONE ×2 (07:02→11:07)
[2021-03-06] MEDS ORDERED: THROMBIN FOR SOLN 20000 UNIT KIT ONE (07:03)
[2021-03-06] MEDS ORDERED: ATROPINE SULFATE 0.1 MG/ML 10ML SYR IV PRN (07:13)
[2021-03-06] MEDS ORDERED: ONDANSETRON INJ 2 MG/ML 2 ML VIAL IV PRN (07:13)
[2021-03-06] MEDS ORDERED: ePHEDrine sulfate 50 MG/ML AMP IV PRN (07:13)
[2021-03-06] MEDS ORDERED: fentaNYL citrate 100 MCG/2 ML VIAL IV PRN (07:13)
[2021-03-06] MEDS ORDERED: HYDROmorphone INJ 2 MG/ML SYR/VIAL IV PRN (07:13)
[2021-03-06] MEDS ORDERED: STAT IV Infusion **Titration per Protocol STA (07:41)
[2021-03-06] MEDS ORDERED: INSULIN PROTOCOL GOAL RANGE ONE (07:41)
[2021-03-06] MEDS ORDERED: NovoLIN-R BOLUS FROM BAG IV ONE (07:45)
--- NOTE | 2021-03-06 08:13 | Magnetic Resonance Report ---
MR lumbar spine wo/w con CLINICAL HISTORY: urinary retention, ?post-op cauda vs. BPH TECHNIQUE: Sagittal and axial T1, T2 and STIR images were obtained. COMPARISON STUDY: No previous studies for comparison. OBSERVATIONS: The vertebral bodies are intact. Status post laminectomy and transpedicular screws placement at the L4-S1 level which is creating magn etic susceptibility artifact. Evaluation is limited due to patient's motion. There is no abnormal bony signal present to suggest a marrow replacement process. Vertebral body heights are preserved. Multilevel intervertebral disc space narrowing with disc desiccation and multiple Schmorl nodes are s een. Also posterior osteophytes are seen at multiple levels. There is 2.3 x 1.2 cm fluid collection is seen posteriorly to the laminectomy site on axial view whic h measures 2.2 cm in craniocaudal dimension and abuts thecal sac and associated with severe stenosis of the central canal. No evidence of abnormal enhancement after intravenous contrast administration. L1-2: Hypertrophic changes of facet joints and minimal bulge of the disc causing mild stenosis of the central canal. Bilateral neuroforamina are slightly narrowed. L2-3: Intervertebral disc space narrowing with disc desiccation and posterior osteophytes. Diffuse bu lge of the disc is seen and in association with hypertrophic changes of facet joints causing mild to moderate stenosis of the central canal. Mild stenosis of bilateral neuroforamina are seen at this lev el. L3-4: Mild narrowing of intervertebral disc space with disc desiccation and posterior osteophytes. Fe w Schmorl nodes are seen. Associated hypertrophic changes of facet joints are seen and causing modera te to severe stenosis of the central canal. Moderate stenosis of bilateral neuroforamina. L4-5: Severe narrowing of intervertebral disc space with disc desiccation and posterior osteophytes. Central canal is patent. Severe neural foraminal stenosis is seen on the right. Moderate stenosis of the left neuroforamina. L5-S1: Intervertebral disc spaces are preserved. Posterior osteophytes and diffuse bulge of the disc. Status post laminectomy. Central canal is severely narrowed by fluid collection at laminectomy site. Moderate to severe neural foraminal stenosis is seen bilaterally. Visualized portion of the conus medullaris and cauda equina appear normal. No areas of abnormal enhancement is seen. IMPRESSION: 1. Status post laminectomy and lumbar fusion. Focal area of fluid collection at laminectomy site in L5-S1 level which is causing severe stenosis of the central canal.. 2. No areas of abnormal enhancement. 3. Multilevel degenerative changes associated with central canal and neural foraminal stenosis as de tailed above. 4. Slightly limited exam due to motion artifact and magnetic susceptibility artifact from orthopedic hardware. ACT 112: Negative or not required by law. The above report was generated using voice recognition software. It may contain grammatical, syntax o r spelling errors. Electronically signed by: Rosario Moreno DO 03/06/2021 8:12 AM
[2021-03-06] MEDS: INSULIN REGULAR 250 UNITS in SODIUM CHLORIDE 0.9% 247.5 ML IV SCH (08:25)
[2021-03-06] MEDS ORDERED: PHENYLEPHRINE 100MCG/ML 5ML SYR ONE (09:22)
[2021-03-06] MEDS ORDERED: SUGAMMADEX SODIUM 200 MG/2 ML VIAL IV ONE (09:41)
--- NOTE | 2021-03-06 09:47 | CT Scan Report ---
CT lumbar spine wo con CT DOSE: 709.31 mGy.cm CLINICAL HISTORY: post-op spine fusion; return to OR, assess screws TECHNIQUE: Helical images were acquired in transverse plane. Reformatted sagittal and coronal images were reviewed. A dose lowering technique was utilized adhering to the principles of ALARA. CONTRAST: No contrast was administered COMPARISON STUDY: None. FINDINGS: Postlaminectomy changes at L4 and L5 level. Transpedicular screws and fixating plates are seen at L4-S1 level. Few areas of gas collection and edema within soft tissue posterior to L4 and L5 level likely due to r ecent surgery. Evaluation is limited due to beam hardening artifact from orthopedic hardware. Right transpedicular screws at L4 and L5 level appear to be slightly low in position, encroaching upo n the right neuroforamina. Left transpedicular screws are unremarkable. No evidence of acute fracture or traumatic malalignment. Multilevel intervertebral disc space narrowing with osteophytes and few areas of vacuum phenomenon. Few areas of central canal narrowing are seen at the L2-L3, L3-L4 level. Central canal at the mid to lower lumbar spine evaluation is limited due to beam hardening artifact. Neural foraminal narrowing is seen at L4-L5 and L5-S1 level bilaterally. IMPRESSION: Postoperative changes after recent left laminectomy and spinal fusion. Right transpedicular screws at L4 and L5 level appears slightly low in position with encroachment upon neuroforamina as detailed ab ove. Please correlate above-mentioned findings with results of MR of the lumbar spine performed one h our prior. ACT 112: Negative or not required by law. The above report was generated using voice recognition software. It may contain grammatical, syntax o r spelling errors. Electronically signed by: Rosario Moreno DO 03/06/2021 9:46 AM
[2021-03-06] MEDS ORDERED: ePHEDrine sulfate 50 MG/ML SYR ONE (10:03)
[2021-03-06] MEDS ORDERED: SURGICEL ABSORB HEMOSTAT 2IN X 14IN TOP ONE (10:43)
[2021-03-06] MEDS ORDERED: FLOSEAL HEMOSTATIC MATRIX 10ML TOP ONE (11:05)
--- NOTE | 2021-03-06 11:44 | Pharmacy Report ---
Pharmacy Glycemic Short Note 2 - Date of Service March 06, 2021 - Glycemic Short BSG Results (Last 24 hours): 03/05/21 03/05/21 03/05/21 16:01 19:05 20:12 Glucose 134 H POC Glucose 186 H 128 H 03/05/21 03/05/21 03/06/21 23:56 23:59 04:54 Glucose 155 H 240 H POC Glucose 177 H 03/06/21 03/06/21 03/06/21 05:00 07:46 08:54 Glucose POC Glucose 263 H 257 H 279 H 03/06/21 03/06/21 09:43 10:39 Glucose POC Glucose 271 H 260 H OUTPATIENT ANTIDIABETIC REGIMEN: * Lantus 50 units HS, Novolog 10 units TID, metformin * A1c = 6.6% 03/05/21 ASSESSMENT: 03/06 * BSG control initially improved yesterday, however deteriorated quickly with the addition of high dose IV steroids * Pt is now receiving IV Solu-medrol 250mg Q 6 hrs x 4 doses and will likely receive dexamethasone IV in OR today. Pt to have evacuation of hematomaand revision of spinal surgery. * IV insulin drip initiated due to sustained BSGs in mid-200s with expected ongoing significant insulin resistance for the next 24+ hrs. * Plan to continue basal insulin as previously order for ease of transition back to SQ basal/bolus regimen over next day or two 03/05 * BSGs better controlled this AM * Fasting BSG 145 this AM w/ 60 unis Lantus on board and following receipt of 11 units correctional insulin overnight * Effects of DXM given in OR should be dissipating over the course of the day today * Will resume reduced dose Lantus this evening * Plan to continue stress level 3 (high stress) Novolog doses initially this AM given total daily insulin requirements as outpt ~80 units/day 03/04 * 75 year old male now s/p spinal surgery. With tachycardia postop now transferred to ICU for monitoring. * Patient received 16 units in OR this afternoon, postop BSG elevated at 296 mg/dL - plan to give 10 units IV insulin * Will stress home dose basal and give 60 units x 1 now to account for DXM given in OR earlier * Begin stress of 3 dosing for novolog with overnight checks PLAN FOR INPATIENT GLYCEMIC CONTROL: * Hold outpatient oral diabetes medications (metformin) * Begin IV insulin infusion, 3.9unit/hr and adjust per rate adjustment calculator / protocol. Goal range 110-180 * Basal insulin * Lantus 40 units Q HS - continue to administer while on IV insulin drip * Bolus insulin * NovoLog Nutritional / Prandial insulin per carb ratio of 1 unit per 5 grams CHO consumed * Reassess insulin needs as steroid tapered / discontinued PLAN FOR DISCHARGE: * May resume home insulin and metformin regimen on discharge if no contraindications present, A1c 6.6% at goal
--- NOTE | 2021-03-06 11:54 | Post Operative Brief Note ---
PG Immediate Post Op with CF Date of Surgery March 06, 2021 Pre & Post Diagnosis Operation Date: 03/06/21 Pre-Op Diagnosis: Post Operative Hematoma, Right L5 Foraminal Stenosis Post-Op Diagnosis: Post Operative Hematoma, Right L5 Foraminal Stenosis I identified the patient and participated in the time-out.: Yes Procedure Evacuation of Hematoma Posterior lumbar spine, Revision L5-S1 Laminectomy and right medial facetectomy and foraminotomy Surgeon Kristin Alvarado MD [employer] Ke Aguilar PA-C Estimated Blood Loss 100 Findings Consistent with Post-Op Diagnosis Specimens Specimen Description: none per surgeon Drains Villareal Catheter (pateint arrived to OR with villareal catheter intact) and Hemovac Drain (15 Fr Round x2, 10 Fr Round x1)
--- NOTE | 2021-03-06 12:47 | Urology Consultation ---
Date of Consultation March 06, 2021 Assessment & Plan (1) Urinary retention: 75 year-old male patient, with multiple comorbidities, admitted s/p extensive lumbar surgery with developed postop urinary retention. -Urinary retention likely multifactorial - neurogenic, anesthesia, BPH. -Patient afebrile. -Labs reviewed - white count and creatinine normal. -Continue villareal catheter. -Recommend maintaining villareal catheter until patient neurologically intact, weightbearing, and ambulatory - can offer voiding trial at that time. -Continue Flomax presuming stable blood pressure. Recommend holding Oxybutynin until normal voiding pattern established. -Will arrange outpatient follow-up with urology service for continued care. -Expected clinical course reviewed with patient, all questions answered. Thank you for allowing us to participate in the acute care of Mr. Rodriguez. Please reconsult us with additional questions, concerns or changes in patient status. History of Present Illness Reason for Consultation: Urinary retention Attending Physician: Kristin Alvarado MD History of Present Illness 75-year-old male patient, with past medical history significant for hypertension, diabetes type I, obesity, hypothyroidism, reflux, BPH and previous TIAs who was admitted to ICU after undergoing elective L4-S1 posterior lumbar instrumentation and fusion and L5-S1 decompression with Dr. Alvarado on 03/04/21. On chart review, the patient was under anesthesia and prone for 8-9 hours with estimated blood loss during the procedure of 1500 ml. He had a villareal catheter that was placed prior to original surgery. Villareal catheter was removed in AM POD#1 03/05. He was then having difficulty emptying his bladder and was catheteri zed x2 (400 cc and 800 cc output) - verified with nursing. Was able to void small amounts on his own. Nursing reports for catheter insertion, they did have difficulty passing catheter and ultimately placed 14F villareal. Postoperative course was complicated by postoperative hematoma and he was taken back to the operating room today for evacuation of hematoma and revision L5-S1 laminectomy and right medial facetectomy and foraminotomy. Villareal catheter was replaced prior to patient proceeding to OR this AM. Urology consulted for urinary retention, neurogenic versus BPH. Patient states he did not follow with urology in the past. Home medications for urinary pattern include Tamsulosin and Oxybutynin. Chart review: Afebrile Wbc 9.70 Hgb 9.7 Creatinine 1.23 No urine studies available in chart to review. Patient examined at bedside after returning from recovery room. He appears drowsy but is able to answer questions appropriately. He states prior to admission, he did not experience any difficulty with urination. No prior history of retention. Denies history of dysuria or hematuria. Does have baseline urinary urgency. Denies urinary frequency. Nocturia prior to admission 2-3 times per ni ght on average. On Flomax as mentioned above. [place] overall he emptied his bladder well. Currently he denies any abdominal/flank pain. Tolerating villareal catheter well, draining clear yellow urine. No fevers or chills. Denies nausea or vomiting. Denies additional urologic concerns today. Allergies Allergy/AdvReac Type Severity Reaction Status Date / Time niacin Allergy Mild red and Verified 03/04/21 05:42 sweating Home Medications Medication Instructions Recorded Confirmed Type aspirin 81 mg tablet,delayed 81 mg PO QAM 10/11/19 02/24/21 History release cyanocobalamin (vitamin B-12) 1,000 mcg PO QAM 10/11/19 02/24/21 History 1,000 mcg tablet (Vitamin B-12) fenofibrate nanocrystallized 145 145 mg PO QAM 10/11/19 02/24/21 History mg tablet furosemide 40 mg tablet 40 mg PO QAM 10/11/19 02/24/21 History gabapentin 300 mg capsule 300 mg PO BID 10/11/19 03/04/21 History insulin aspart U-100 100 unit/mL 10 unit SUBCUT TIDM 10/11/19 03/04/21 History subcutaneous solution (Novolog U-100 Insulin aspart) insulin glargine 100 unit/mL 50 unit SUBCUT HS 10/11/19 03/04/21 History subcutaneous solution (Lantus U-100 Insulin) levothyroxine 112 mcg tablet 112 mcg PO QAM 10/11/19 02/24/21 History lisinopril 40 mg tablet 40 mg PO QAM 10/11/19 02/24/21 History metformin 1,000 mg tablet 1,000 mg PO BID 10/11/19 03/04/21 History metoprolol tartrate 50 mg tablet 50 mg PO BID 10/11/19 03/04/21 History omega 9-aat-yvg-fish oil 1,000 mg 1 cap PO QAM 10/11/19 02/24/21 History (120 mg-180 mg) capsule (Fish Oil) omeprazole 20 mg tablet,delayed 20 mg PO QAM 10/11/19 02/24/21 History release oxybutynin chloride 5 mg tablet 5 mg PO BID 10/11/19 03/04/21 History rosuvastatin 5 mg tablet 5 mg PO QAM 10/11/19 02/24/21 History tamsulosin 0.4 mg capsule 0.4 mg PO QAM 10/11/19 02/24/21 History meloxicam 7.5 mg tablet 7.5 mg PO QAM 02/24/21 02/24/21 History Patient History Medical History BPH (benign prostatic hyperplasia) Chronic back pain Diabetes mellitus type 1 Hyperlipidemia Hypertension Hypothyroidism Lumbar stenosis with neurogenic claudication Spinal stenosis Transient ischemic attack (TIA) 2017--no deficits, no neurologist Surgical History History of colonoscopy with polypectomy History of left inguinal hernia repair History of lumbar surgery History of revision of total replacement of right hip joint History of tonsillectomy History of total right hip replacement History of wisdom tooth extraction Family History Father Family history of diabetes mellitus Other No family history of adverse response to anesthesia Social History Smoking Status: Current every day smoker Cigarettes Per Day: 1/2-1 ppd; Second Hand Exposure: No; Do You Dip or Chew Tobacco: No; Tobacco Cessation Education Requested by Patient: No Hx Alcohol Use: No Hx Substance Use: No Preferred Language: Persian Communication Ability: Effective Senior Administrative Services Officer Required: No Beliefs That Will Affect Care: None marital status: Single Current Living Situation: Alone Other Information That Helps Us Care for You: No Feels Safe at Home: Yes Safety Concerns: Feels Safe At This Time Assistive Devices: Glasses and Walker Review of Systems Constitutional: as per Subjective / HPI; no fever and no chills Respiratory: no cough and no dyspnea Cardiovascular: no chest pain and no edema Gastrointestinal: as per Subjective / HPI Genitourinary: + as per Subjective / HPI Musculoskeletal: as per Subjective / HPI Integumentary: no problem reported Neurologic: no problem reported Hematologic / Lymphatic: no easy bleeding and no easy bruising Physical Exam Constitutional: well developed and well nourished; no acute distress and not ill appearing Drowsy ENMT: Ears: no external ear abnormality Nose: no external nose abnormality Neck: normal visual inspection and trachea midline Respiratory: normal respiratory effort and able to speak in complete sentences; no respiratory distress and no audible wheezes On oxygen supplementation Cardiovascular: Extremities: no edema Gastrointestinal (Abdomen): Inspection/Auscultation: abdomen normal to inspection; abdomen not distended Percussion/Palpation: abdomen soft; abdomen nontender and no guarding Musculoskeletal: Moves all extremities without difficulty. Skin: No visible rashes, lesions, or wounds noted. Neurologic: moves all extremities and awake Psychiatric: Orientation: oriented x 3 and cooperative Genitourinary: Villareal catheter patent and intact, draining clear yellow urine. Results & Data ([facility]) Vital Signs (Past 12 Hours) Vital Signs Temp Pulse Pulse Resp BP BP Pulse Ox 03/06/21 08:00 86 03/06/21 07:17 36.6 C 86 16 131/64 93 03/06/21 07:02 90 17 139/70 94 03/06/21 06:01 82 14 131/56 L 93 03/06/21 05:01 91 H 21 137/65 93 03/06/21 04:02 37.1 C 78 18 100/64 97 03/06/21 03:01 93 H 22 135/64 93 03/06/21 02:01 92 H 21 135/63 93 03/06/21 01:01 99 H 20 137/60 93 PG Care Time/CCT Total # of Minutes Spent Total Time Spent with Patient: Total time spent is greater than 50% in coordination of care (as documented) at patient's floor/unit and/or counseling patient: Coding Level of Care Code 02190 Initial Inpt Care Lvl 2 Diagnoses Urinary retention R33.9
--- NOTE | 2021-03-06 13:51 | Anesthesiology Progress Note ---
Date of Service March 06, 2021 Anesthesia Post Procedure Vital Signs Vital Signs: Temp Pulse Pulse Resp BP BP BP 03/06/21 13:05 98 H 16 139/80 03/06/21 12:55 36.2 C L 104 H 18 125/64 03/06/21 12:45 102 H 18 128/57 L 03/06/21 12:35 95 H 16 116/61 03/06/21 12:28 36.0 C L 105 H 17 142/64 H 03/06/21 08:00 86 03/06/21 07:17 36.6 C 86 16 131/64 03/06/21 07:02 90 17 139/70 03/06/21 06:01 82 14 131/56 L 03/06/21 05:01 91 H 21 137/65 03/06/21 04:02 37.1 C 78 18 100/64 03/06/21 03:01 93 H 22 135/64 03/06/21 02:01 92 H 21 135/63 03/06/21 01:01 99 H 20 137/60 03/06/21 00:04 37 C 101 H 14 135/57 L 03/05/21 23:01 109 H 19 147/65 H 03/05/21 21:04 101 H 22 102/51 L 03/05/21 20:15 36.6 C 102 H 22 93/63 L 03/05/21 19:54 97 H 23 122/61 03/05/21 19:14 95 H 16 113/55 L 03/05/21 18:14 88 24 85/49 L 03/05/21 17:29 95 H 26 H 80/47 L 03/05/21 16:29 96 H 26 H 86/44 L 03/05/21 15:00 95 H 133/55 L 03/05/21 14:00 86 130/50 L Pulse Ox 03/06/21 13:05 94 03/06/21 12:55 94 03/06/21 12:45 94 03/06/21 12:35 95 03/06/21 12:28 98 03/06/21 08:00 03/06/21 07:17 93 03/06/21 07:02 94 03/06/21 06:01 93 03/06/21 05:01 93 03/06/21 04:02 97 03/06/21 03:01 93 08/13/21 02:01 93 03/06/21 01:01 93 03/06/21 00:04 94 03/05/21 23:01 95 03/05/21 21:04 96 03/05/21 20:15 96 03/05/21 19:54 99 03/05/21 19:14 95 03/05/21 18:14 96 03/05/21 17:29 97 03/05/21 16:29 95 03/05/21 15:00 03/05/21 14:00 Pain Intensity Right Back: Pain Intensity: 5 Transfer of Care Handoff Completed per policy Notes Mental Status: alert / awake / arousable and participated in evaluation Patient Amnestic to Procedure: Yes Nausea / Vomiting: adequately controlled Pain: adequately controlled Airway Patency, RR, SpO2: stable & adequate BP & HR: stable & adequate Hydration State: stable & adequate Anesthetic Complications: no major complications apparent and Pt Satisfied with anesthetic care
--- NOTE | 2021-03-06 14:22 | Critical Care Progress Note ---
Date of Service March 06, 2021 Assessment & Plan (1) Lumbar stenosis with neurogenic claudication: (2) Tachycardia: (3) Hyperkalemia: (4) Chronic kidney disease: Plan: Impression: 75-year-old male postop day 3 extensive spine surgery with large EBL. He is in the ICU for monitoring postoperatively. 24-hour events: The patient developed issues with urinary retention. Morton catheter was placed. Urology consultation obtained. Imaging was performed which revealed a postoperative hematoma with severe canal stenosis. He was taken back to the OR today for evacuation of hematoma and revision. He did require institution of an insulin infusion for his hyperglycemia. Recommendations: 1. Tachycardia: Suspect this is physiologic response to the patient's stresses from today. Continue home dose of metoprolol. Continue to follow clinically 2. Acute blood loss anemia: We will continue to follow hemoglobin and hematocrit. Transfusion thresholds are likely less than 8 unless orthospine wishes to transfuse at a higher threshold. 3. Chronic kidney disease: Creatinine appears to be at baseline. Will continue to follow electrolytes. 4. Hyperkalemia: Resolved. Okay to restart TOMI inhibitor. 5. Diabetes: Insulin infusion for glycemic control. May be able to restart Metformin when taking p.o. 6. Hypertension: Patient currently has a soft blood pressure so we will hold reinstitution of antihypertensives. If he does well we will start metoprolol first. 7. PT OT and activity deferred to the operative team. 8. status post spine surgery: Per orthospine. Pain control per surgery. 9. Urinary retention: Morton catheter in place. Per urology. Start Flomax. Keep Morton in until ambulatory and then consider voiding trials. Disposition: Per orthospine surgery Admission and Anticipated Discharge Date Admission Date: March 04, 2021 Subjective Patient seen and examined multiple times throughout the day. He had imaging performed which revealed a hematoma as well as some new neurological complaints. He was seen by orthospine and return to the OR today for evacuation of the hematoma and revision of his laminectomy. He complains of some weakness and numbness in his right foot. No chest pain or palpitations. No nausea vomiting or diarrhea. He did have issues with urinary retention requiring placement of a Morton catheter overnight Review of Systems Review of Systems: All systems reviewed & are unremarkable except as noted in HPI & below Physical Exam Constitutional: WD/WN, vitals as above Neck: trachea midline, no thyromegaly Respiratory: normal respiratory effort, lungs clear to auscultation Cardiovascular: RRR, no murmur, no edema Gastrointestinal (Abdomen): normal bowel sounds, soft, nontender, no hepatosplenomegaly Musculoskeletal: Extremities: extremities normal to inspection Skin: no rashes, warm and dry Lymphatic: no cervical lymphadenopathy Results & Data Results & Data ([facility]) Vital Signs (Past 12 Hours) Vital Signs Temp Pulse Pulse Resp BP BP BP 03/06/21 13:05 98 H 16 139/80 03/06/21 12:55 36.2 C L 104 H 18 125/64 03/06/21 12:45 102 H 18 128/57 L 03/06/21 12:35 95 H 16 116/61 03/06/21 12:28 36.0 C L 105 H 17 142/64 H 03/06/21 08:00 86 03/06/21 07:17 36.6 C 86 16 131/64 03/06/21 07:02 90 17 139/70 03/06/21 06:01 82 14 131/56 L 03/06/21 05:01 91 H 21 137/65 03/06/21 04:02 37.1 C 78 18 100/64 03/06/21 03:01 93 H 22 135/64 Pulse Ox 03/06/21 13:05 94 03/06/21 12:55 94 03/06/21 12:45 94 03/06/21 12:35 95 03/06/21 12:28 98 03/06/21 08:00 03/06/21 07:17 93 03/06/21 07:02 94 03/06/21 06:01 93 03/06/21 05:01 93 03/06/21 04:02 97 03/06/21 03:01 93 Critical Care Results & Data Vital Signs (Past 12 Hours) Vital Signs Temp Pulse Pulse Resp BP BP BP 03/06/21 13:05 98 H 16 139/80 03/06/21 12:55 36.2 C L 104 H 18 125/64 03/06/21 12:45 102 H 18 128/57 L 03/06/21 12:35 95 H 16 116/61 03/06/21 12:28 36.0 C L 105 H 17 142/64 H 03/06/21 08:00 86 03/06/21 07:17 36.6 C 86 16 131/64 03/06/21 07:02 90 17 139/70 03/06/21 06:01 82 14 131/56 L 03/06/21 05:01 91 H 21 137/65 03/06/21 04:02 37.1 C 78 18 100/64 03/06/21 03:01 93 H 22 135/64 Pulse Ox 03/06/21 13:05 94 03/06/21 12:55 94 03/06/21 12:45 94 03/06/21 12:35 95 03/06/21 12:28 98 03/06/21 08:00 03/06/21 07:17 93 03/06/21 07:02 94 03/06/21 06:01 93 03/06/21 05:01 93 03/06/21 04:02 97 03/06/21 03:01 93 Lab & Micro Results (Past 24 Hours) RBC 3.12 M/uL (4.7-6.1) L 03/06/21 WBC 9.70 K/uL (4.8-10.8) 03/06/21 Hgb 9.7 g/dL (14.0-18.0) L 03/06/21 Hct 28.5 % (42-52) L 03/06/21 MCV 91.3 fL (80-100) 03/06/21 MCH 31.1 pg (25-34) 03/06/21 MCHC 34.0 g/dL (32-36) 03/06/21 RDW Standard Deviation 47.0 fL (36.4-46.3) H 03/06/21 RDW Coefficient of Variation 14.1 % (11.5-14.5) 03/06/21 Plt Count 135 K/uL (130-400) 03/06/21 MPV 10.0 fL (7.4-10.4) 03/06/21 Na 139 mmol/L (136-145) 03/06/21 K 4.5 mmol/L (3.5-5.1) 03/06/21 Cl 107 mmol/L (98-107) 03/06/21 CO2 27 mmol/L (21-32) 03/06/21 Anion Gap 5.0 (3-11) 03/06/21 BUN 27 mg/dl (7-18) H 03/06/21 Creatinine 1.23 mg/dl (0.6-1.4) 03/06/21 Estimated GFR ( Amer) 66.6 ml/min 03/06/21 Estimated GFR (Non-Af Amer) 57.5 ml/min 03/06/21 BUN/Creatinine Ratio 22.1 (10-20) H 03/06/21 Glu 240 mg/dl (70-99) H 03/06/21 Ca 8.4 mg/dl (8.5-10.1) L 03/06/21 Phosphorus Level 2.3 mg/dl (2.5-4.9) L 03/06/21 Mg 2.5 mg/dl (1.8-2.4) H 03/06/21 04:54 03/06/21 Calcium Level 8.4 mg/dl (8.5-10.1) L 03/06/21 04:54 03/06/21 Prothromb Time International Ratio 1.1 (0.9-1.1) 03/06/21 04:54 03/06/21 Diagnostic Findings (Past 24 Hours) Lumbar Spine X-Ray 03/05/21 07:00 LUMBAR SPINE 2 VIEWS CLINICAL HISTORY: Postoperative examination. Spine surgery. FINDINGS: AP and lateral standing views of the lumbar spine are compared to study dated 03/04/2021. The skeletal structures are osteopenic. There is no radiographic evidence of acute fracture or malalignment. Vertebral body height is maintained throughout the lumbar spine. There is minimal retrolisthesis at L3-L4 and L4-L5. Alignment is otherwise preserved. There is postoperative change from laminectomy and posterior fusion at L4-S1. Interpedicular screws are present at all levels. The orthopedic hardware appears intact. Large anterior and lateral marginal osteophytes are seen throughout. The spinous processes are intact as visualized. Moderate disc space narrowing is seen at all lumbar levels. The visualized bony pelvis appears intact. Sclerotic change is noted in the sacroiliac joints. A right hip arthroplasty is in place. There is no radiographic evidence of high-grade bowel obstruction. The mildly distended bowel loops suggest postoperative ileus. A surgical drain is seen posteriorly. There is advanced atherosclerotic calcification of the abdominal aorta. IMPRESSION: 1. There is postoperative change from L4-S1 spinal fusion as above. The orthopedic hardware appears intact. 2. No acute bony abnormality seen. 3. Distended small bowel loops are nonspecific and likely represent a postoperative ileus. Clinical correlation will be required. Dictated: 03/05/2021 1:49 PM Transcribed: 03/05/2021 2:18 PM Danika [id number] [id number] Electronically signed by: Jamil Silver M.D. 03/05/2021 2:26 PM Lumbar Spine MRI 03/05/21 20:57 MR lumbar spine wo/w con CLINICAL HISTORY: urinary retention, ?post-op cauda vs. BPH TECHNIQUE: Sagittal and axial T1, T2 and STIR images were obtained. COMPARISON STUDY: No previous studies for comparison. OBSERVATIONS: The vertebral bodies are intact. Status post laminectomy and transpedicular screws placement at the L4-S1 level which is creating magnetic susceptibility artifact. Evaluation is limited due to patient's motion. There is no abnormal bony signal present to suggest a marrow replacement process. Vertebral body heights are preserved. Multilevel intervertebral disc space narrowing with disc desiccation and multiple Schmorl nodes are seen. Also posterior osteophytes are seen at multiple levels. There is 2.3 x 1.2 cm fluid collection is seen posteriorly to the laminectomy site on axial view which measures 2.2 cm in craniocaudal dimension and abuts thecal sac and associated with severe stenosis of the central canal. No evidence of abnormal enhancement after intravenous contrast administration. L1-2: Hypertrophic changes of facet joints and minimal bulge of the disc causing mild stenosis of the central canal. Bilateral neuroforamina are slightly narrowed. L2-3: Intervertebral disc space narrowing with disc desiccation and posterior osteophytes. Diffuse bulge of the disc is seen and in association with hypertrophic changes of facet joints causing mild to moderate stenosis of the central canal. Mild stenosis of bilateral neuroforamina are seen at this level. L3-4: Mild narrowing of intervertebral disc space with disc desiccation and posterior osteophytes. Few Schmorl nodes are seen. Associated hypertrophic changes of facet joints are seen and causing moderate to severe stenosis of the central canal. Moderate stenosis of bilateral neuroforamina. L4-5: Severe narrowing of intervertebral disc space with disc desiccation and posterior osteophytes. Central canal is patent. Severe neural foraminal stenosis is seen on the right. Moderate stenosis of the left neuroforamina. L5-S1: Intervertebral disc spaces are preserved. Posterior osteophytes and diffuse bulge of the disc. Status post laminectomy. Central canal is severely narrowed by fluid collection at laminectomy site. Moderate to severe neural foraminal stenosis is seen bilaterally. Visualized portion of the conus medullaris and cauda equina appear normal. No areas of abnormal enhancement is seen. IMPRESSION: 1. Status post laminectomy and lumbar fusion. Focal area of fluid collection at laminectomy site in L5-S1 level which is causing severe stenosis of the central canal.. 2. No areas of abnormal enhancement. 3. Multilevel degenerative changes associated with central canal and neural foraminal stenosis as detailed above. 4. Slightly limited exam due to motion artifact and magnetic susceptibility artifact from orthopedic hardware. ACT 112: Negative or not required by law. The above report was generated using voice recognition software. It may contain grammatical, syntax or spelling errors. Electronically signed by: Rosario Moreno DO 03/06/2021 8:[address] 03/05/21 22:33 CT lumbar spine wo con CT DOSE: 709.31 mGy.cm CLINICAL HISTORY: post-op spine fusion; return to OR, assess screws TECHNIQUE: Helical images were acquired in transverse plane. Reformatted sagittal and coronal images were reviewed. A dose lowering technique was utilized adhering to the principles of ALARA. CONTRAST: No contrast was administered COMPARISON STUDY: None. FINDINGS: Postlaminectomy changes at L4 and L5 level. Transpedicular screws and fixating plates are seen at L4-S1 level. Few areas of gas collection and edema within soft tissue posterior to L4 and L5 level likely due to recent surgery. Evaluation is limited due to beam hardening artifact from orthopedic hardware. Right transpedicular screws at L4 and L5 level appear to be slightly low in position, encroaching upon the right neuroforamina. Left transpedicular screws are unremarkable. No evidence of acute fracture or traumatic malalignment. Multilevel intervertebral disc space narrowing with osteophytes and few areas of vacuum phenomenon. Few areas of central canal narrowing are seen at the L2-L3, L3-L4 level. Central canal at the mid to lower lumbar spine evaluation is limited due to beam hardening artifact. Neural foraminal narrowing is seen at L4-L5 and L5-S1 level bilaterally. IMPRESSION: Postoperative changes after recent left laminectomy and spinal fusion. Right transpedicular screws at L4 and L5 level appears slightly low in position with encroachment upon neuroforamina as detailed above. Please correlate above- mentioned findings with results of MR of the lumbar spine performed one hour prior. ACT 112: Negative or not required by law. The above report was generated using voice recognition software. It may contain grammatical, syntax or spelling errors. Electronically signed by: Rosario Moreno DO 03/06/2021 9:46 AM I & O Totals 24 Hours 03/05/21 03/06/21 03/07/21 06:59 06:59 06:59 Intake Total 6410 / 6410 2640.5 / 2640.5 2088.983 / 2088.983 Output Total 4045 / 4045 2875 / 2875 1045 / 1045 Balance 2365 / 2365 -234.5 / -234.5 1043.983 / 1043.983 Cumulative 02/09/21 16:51 thru 03/06/21 13:54 Intake Total 81802.483 Output Total 7965 Balance 3174.483 RT Ventilator Mngmt (Last Documented) Ventilator Ordered Settings Respiratory Rate 16 03/06/21 13:05 Ventilator - PT Measurements Respiratory Rate 16 Coding Level of Care Code 13090 Subseq Hosp Care Lvl 3 Diagnoses Lumbar stenosis with neurogenic claudication M48.062 Tachycardia R00.0 Hyperkalemia E87.5 Chronic kidney disease N18.9
[2021-03-06] MEDS: CYANOCOBALAMIN 500 MCG TABLET (VITAMIN B-12) PO SCH (15:03)
[2021-03-06] MEDS: GABAPENTIN 300 MG CAP PO SCH ×2 (15:05→21:12)
[2021-03-06] MEDS: OXYBUTYNIN CHLORIDE 5 MG TAB PO SCH ×2 (15:05→21:00)
[2021-03-06] MEDS: PANTOprazole 40 MG TAB PO SCH (15:16)
[2021-03-06] MEDS: ROSUVASTATIN CALCIUM 5 MG TAB PO SCH (15:16)
[2021-03-06] MEDS: TAMSULOSIN HCL 0.4 MG CAP PO SCH (15:16)
[2021-03-06] MEDS: FENOFIBRATE NANOCRYSTALLIZED 145 MG TABLET PO SCH (15:16)
--- NOTE | 2021-03-06 19:43 | Hospitalist Progress Note ---
Date of Service March 06, 2021 Assessment & Plan (1) Lumbar stenosis with neurogenic claudication: (2) Lumbar spinal stenosis: Plan: S/P L4-S1 Posterior Lumbar Instrumentation and Fusion, L5-S1 posterior decompression, Local Autograft, Allograft on 03/04/[address] Polanco Patient transferred to the ICU for close monitor MRI on 03/06 showed Focal area of fluid collection at laminectomy site in L5-S1 level which is causing severe stenosis of the central canal. S/P Evacuation of Hematoma Posterior lumbar spine, Revision L5-S1 Laminectomy and right medial facetectomy and foraminotomy performed by Dr. Polanco Hemoglobin dropped to 9.2 today Continue incentive spirometry PT/OT eval as per Ortho Fall precaution Continue monitor H&H and transfuse if H/H dropped below 8 (3) Acute postoperative anemia due to greater than expected blood loss: Plan: Anemia of acute blood loss Due to recent orthopedic procedure hemoglobin 9.2, then repeat one 9.7 (preop hemoglobin was between 15-16) Continue monitoring H&H (4) Hypomagnesemia: Plan: Magnesium 1.5 Plan replaced Continue monitor electrolytes (5) Tachycardia: Plan: Mostly due to hypovolemia vs electrolytes abnormality continue metoprolol (6) Hyperkalemia: Plan: K on admission 5.3 K normalized Continue monitor BMP (7) Chronic kidney disease: Plan: Creatinine 1.23 today Stable (8) BPH (benign prostatic hyperplasia): Plan: Continue Flomax daily (9) Diabetes: Plan: Most recent hemoglobin A1c 6.6 On insulin and NovoLog sliding scale Continue monitor blood sugar (10) HTN (hypertension): Plan: BP has been in the low side lisinopril on hold, will consider to resume in a.m. (11) HLD (hyperlipidemia): Plan: Continue fish oil and fenofibrate (12) Hypothyroid: Plan: Continue levothyroxine (13) Urinary retention: Plan: Possible related due t to recent surgery, anesthetic agent and BPH Urology on board recommended to keep Morton catheter in place Continue Flomax if BP stable Recommend continue holding Oxybutynin until patient able to void Plan: DVT Prophylaxis Per Surgery Protocol Admission and Anticipated Discharge Date Admission Date: March 04, 2021 Subjective Patient was seen and evaluated for postop follow-up Lying in bed with no distress with family member at bedside Patient is a little drowsy because he just came from the OR His back pain is tolerable Denies any chest pain, palpitation, dizziness, shortness of breath. Physical Exam Physical Exam: General- No acute distress Head- atraumatic Eyes- PERRL, EOMI, ENT- oropharynx clear Neck- supple, no JVD Lungs- clear to auscultation Heart- regular rhythm; no murmur Abdomen- normal bowel sounds, soft, nontender Extremities- no calf tenderness Neuro- alert, oriented x 3; PERRL, EOMI; no facial palsy; no dysarthria Skin- warm & dry Results & Data Results & Data ([facility]) Vital Signs (Past 12 Hours) Vital Signs Temp Pulse Pulse Resp BP BP Pulse Ox 03/06/21 18:25 104 H 19 133/59 L 93 03/06/21 17:41 36.8 C 03/06/21 17:10 101 H 19 145/51 H 93 03/06/21 16:10 100 H 15 129/61 94 03/06/21 16:00 102 H 03/06/21 15:10 94 H 17 126/75 95 03/06/21 14:10 91 H 14 128/59 L 97 03/06/21 13:22 95 H 16 132/58 L 97 03/06/21 13:05 98 H 16 139/80 94 03/06/21 12:55 36.2 C L 104 H 18 125/64 94 03/06/21 12:45 102 H 18 128/57 L 94 03/06/21 12:35 95 H 16 116/61 95 03/06/21 12:28 36.0 C L 105 H 17 142/64 H 98 03/06/21 08:00 86
--- NOTE | 2021-03-06 19:55 | Communication Note ---
Date of Service: March 06, 2021 Post-op routine neurological assessment completed Patient awake, alert No new neurological deficits noted Musculoskeletal: 5/5 motor strength bilateral L2-S1 except right L5 3/5, left S1 4/5, right S1 4+/5 Neurologic: Sensation 2/2 to light touch bilateral L2-S1
[2021-03-06] MEDS: DOCUSATE SODIUM/SENNA 50/8.6MG TAB PO SCH (21:12)
[2021-03-06] MEDS: INSULIN GLARGINE SOLOSTAR 100 UNITS/ML 3 ML PEN SC SCH (21:16)
[2021-03-07] MEDS: POLYETHYLENE (MIRALAX) 17 GM PACK PO SCH ×4 (00:06→19:02)
[2021-03-07 05:39] LABS: Hematocrit (blood only) 25.8 % (42-52); Hemoglobin 8.7 g/dL (14.0-18.0); Mean Corpuscular Hemoglobin 31.4 pg (25-34); Mean Corpuscular Hgb Conc 33.7 g/dL (32-36); Mean Corpuscular Volume 93.1 fL (80-100); Mean Platelet Volume 10.4 fL (7.4-10.4); Platelet Count 134 K/uL (130-400); RDW Standard Deviation 47.9 fL (36.4-46.3); Red Blood Count 2.77 M/uL (4.7-6.1)
[2021-03-07] MEDS: CYCLOBENZAPRINE HCL 10 MG TAB PO SCH ×3 (05:40→20:17)
[2021-03-07] MEDS: LEVOTHYROXINE SODIUM 112 MCG TABLET PO SCH (05:41)
[2021-03-07 06:03] LABS: BUN Creatinine Ratio 23.5 (10-20); Calcium 8.4 mg/dl (8.5-10.1); Est GFR (African American) 92.2 ml/min; Est GFR (Non-African American) 79.6 ml/min; Magnesium 2.6 mg/dl (1.8-2.4)
[2021-03-07 06:04] LABS: Phosphorus 2.4 mg/dl (2.5-4.9)
[2021-03-07] MEDS: ICU ELECTROLYTE REPLACEMENT PROTOCOL SCH ×2 (07:43→19:02)
[2021-03-07] MEDS ORDERED: INSULIN PROTOCOL GOAL RANGE ONE (08:00)
[2021-03-07] MEDS: INSULIN ASPART 100 UNITS/ML 3 ML PEN SC SCH ×4 (08:26→20:28)
[2021-03-07] MEDS: PANTOprazole 40 MG TAB PO SCH (08:31)
[2021-03-07] MEDS: TAMSULOSIN HCL 0.4 MG CAP PO SCH (08:31)
[2021-03-07] MEDS: FENOFIBRATE NANOCRYSTALLIZED 145 MG TABLET PO SCH (08:31)
[2021-03-07] MEDS: OXYBUTYNIN CHLORIDE 5 MG TAB PO SCH ×2 (08:32→20:16)
[2021-03-07] MEDS: GABAPENTIN 300 MG CAP PO SCH ×2 (08:32→20:17)
[2021-03-07] MEDS: ROSUVASTATIN CALCIUM 5 MG TAB PO SCH (08:33)
[2021-03-07] MEDS: CYANOCOBALAMIN 500 MCG TABLET (VITAMIN B-12) PO SCH (08:33)
[2021-03-07] MEDS ORDERED: METOPROLOL TARTRATE 1 MG/ML VIAL IV PRN ×2 (08:58→21:02)
--- NOTE | 2021-03-07 08:59 | Critical Care Progress Note ---
Date of Service March 07, 2021 Assessment & Plan (1) Lumbar stenosis with neurogenic claudication: (2) Tachycardia: (3) Hyperkalemia: (4) Chronic kidney disease: Plan: Impression: 75-year-old male postop day 4 extensive spine surgery with large EBL. He required return to the OR for evacuation of hematoma and revision of hardware. He is in the ICU for monitoring postoperatively. 24-hour events: Patient has been intermittently tachycardic. He is developing some mild ICU delirium. Recommendations: 1. Tachycardia: Atrial arrhythmia. The patient 5 mg IV Lopressor x1 now and try and restart his oral medications. I think his blood pressure will do better with better heart rate control. Cardiology consultation will be placed. Anticoagulation not possible given his recent spine surgery 2. Acute blood loss anemia: We will continue to follow hemoglobin and hematocrit. Transfusion thresholds are likely less than 8 unless orthospine wishes to transfuse at a higher threshold. 3. Chronic kidney disease: Creatinine appears to be at baseline. Will continue to follow electrolytes. 4. Hyperkalemia: Resolved. 5. Diabetes: Insulin infusion for glycemic control. May be able to restart Metformin when taking p.o. 6. Hypertension: Restart metoprolol and see how he does. Holding TOMI inhibitor for now 7. PT OT and activity deferred to the operative team. 8. status post spine surgery: Per orthospine. Pain control per surgery. 9. Urinary retention: Morton catheter in place. Per urology. Start Flomax. Keep Morton in until ambulatory and then consider voiding trials. 10. Delirium: Suspect multifactorial due to medications, sundowning, wake cycle, and age. Continue to try and reorient the patient as much as possible. Try to avoid any potentially offending agents if possible. Disposition: Per orthospine surgery We will continue to follow while in ICU. Admission and Anticipated Discharge Date Admission Date: March 04, 2021 Subjective Patient seen and examined. Discussed with critical care nurse at bedside. The patient has some mild ICU delirium and is tachycardia. EKG demonstrates what appears to be atrial tachycardia versus atrial fibrillation. His blood pressures have been marginal. Beta-blockers have been held. The patient denies any chest pain or shortness of breath. He complains of feeling that his right leg is somewhat numb on the lateral aspect. He feels it may be weaker but subjectively it appears about the same as his left. Review of Systems Review of Systems: All systems reviewed & are unremarkable except as noted in HPI & below Physical Exam Constitutional: WD/WN, vitals as above Neck: trachea midline, no thyromegaly Respiratory: normal respiratory effort, lungs clear to auscultation Cardiovascular: RRR, no murmur, no edema Gastrointestinal (Abdomen): normal bowel sounds, soft, nontender, no hepatosplenomegaly Musculoskeletal: Extremities: extremities normal to inspection Skin: no rashes, warm and dry Lymphatic: no cervical lymphadenopathy Results & Data Results & Data ([facility]) Vital Signs (Past 12 Hours) Vital Signs Temp Pulse Resp BP Pulse Ox 03/07/21 08:09 133 H 03/07/21 07:25 140 H 23 106/59 L 92 03/07/21 06:38 36.6 C 03/07/21 05:25 126 H 21 92/52 L 91 03/07/21 04:55 121 H 22 106/53 L 91 03/07/21 03:25 123 H 21 114/59 L 90 03/07/21 02:25 125 H 20 114/68 90 03/07/21 01:25 123 H 20 125/59 L 92 03/07/21 00:30 122 H 20 91 03/07/21 00:25 129 H 20 98 03/07/21 00:00 122 H 03/06/21 23:25 122 H 20 131/68 90 03/06/21 22:57 123 H 24 129/57 L 93 03/06/21 22:25 97 H 19 132/57 L 97 03/06/21 21:25 98 H 16 141/50 H 95 Critical Care Results & Data Vital Signs (Past 12 Hours) Vital Signs Temp Pulse Resp BP Pulse Ox 03/07/21 08:09 133 H 03/07/21 07:25 140 H 23 106/59 L 92 03/07/21 06:38 36.6 C 03/07/21 05:25 126 H 21 92/52 L 91 03/07/21 04:55 121 H 22 106/53 L 91 03/07/21 03:25 123 H 21 114/59 L 90 03/07/21 02:25 125 H 20 114/68 90 03/07/21 01:25 123 H 20 125/59 L 92 03/07/21 00:30 122 H 20 91 03/07/21 00:25 129 H 20 98 03/07/21 00:00 122 H 03/06/21 23:25 122 H 20 131/68 90 03/06/21 22:57 123 H 24 129/57 L 93 03/06/21 22:25 97 H 19 132/57 L 97 03/06/21 21:25 98 H 16 141/50 H 95 Lab & Micro Results (Past 24 Hours) RBC 2.77 M/uL (4.7-6.1) L 03/07/21 WBC 11.80 K/uL (4.8-10.8) H 03/07/21 Hgb 8.7 g/dL (14.0-18.0) L 03/07/21 Hct 25.8 % (42-52) L 03/07/21 MCV 93.1 fL (80-100) 03/07/21 MCH 31.4 pg (25-34) 03/07/21 MCHC 33.7 g/dL (32-36) 03/07/21 RDW Standard Deviation 47.9 fL (36.4-46.3) H 03/07/21 RDW Coefficient of Variation 14.0 % (11.5-14.5) 03/07/21 Plt Count 134 K/uL (130-400) 03/07/21 MPV 10.4 fL (7.4-10.4) 03/07/21 Na 143 mmol/L (136-145) 03/07/21 K 4.0 mmol/L (3.5-5.1) 03/07/21 Cl 111 mmol/L (98-107) H 03/07/21 CO2 30 mmol/L (21-32) 03/07/21 Anion Gap 2.0 (3-11) L 03/07/21 BUN 22 mg/dl (7-18) H 03/07/21 Creatinine 0.94 mg/dl (0.6-1.4) 03/07/21 Estimated GFR ( Amer) 92.2 ml/min 03/07/21 Estimated GFR (Non-Af Amer) 79.6 ml/min 03/07/21 BUN/Creatinine Ratio 23.5 (10-20) H 03/07/21 Glu 65 mg/dl (70-99) L 03/07/21 Ca 8.4 mg/dl (8.5-10.1) L 03/07/21 Phosphorus Level 2.4 mg/dl (2.5-4.9) L 03/07/21 Mg 2.6 mg/dl (1.8-2.4) H 03/07/21 04:42 03/07/21 Calcium Level 8.4 mg/dl (8.5-10.1) L 03/07/21 04:42 03/07/21 Diagnostic Findings (Past 24 Hours) Lumbar Spine CT 03/05/21 22:33 CT lumbar spine wo con CT DOSE: 709.31 mGy.cm CLINICAL HISTORY: post-op spine fusion; return to OR, assess screws TECHNIQUE: Helical images were acquired in transverse plane. Reformatted sagittal and coronal images were reviewed. A dose lowering technique was utilized adhering to the principles of ALARA. CONTRAST: No contrast was administered COMPARISON STUDY: None. FINDINGS: Postlaminectomy changes at L4 and L5 level. Transpedicular screws and fixating plates are seen at L4-S1 level. Few areas of gas collection and edema within soft tissue posterior to L4 and L5 level likely due to recent surgery. Evaluation is limited due to beam hardening artifact from orthopedic hardware. Right transpedicular screws at L4 and L5 level appear to be slightly low in position, encroaching upon the right neuroforamina. Left transpedicular screws are unremarkable. No evidence of acute fracture or traumatic malalignment. Multilevel intervertebral disc space narrowing with osteophytes and few areas of vacuum phenomenon. Few areas of central canal narrowing are seen at the L2-L3, L3-L4 level. Central canal at the mid to lower lumbar spine evaluation is limited due to beam hardening artifact. Neural foraminal narrowing is seen at L4-L5 and L5-S1 level bilaterally. IMPRESSION: Postoperative changes after recent left laminectomy and spinal fusion. Right transpedicular screws at L4 and L5 level appears slightly low in position with encroachment upon neuroforamina as detailed above. Please correlate above- mentioned findings with results of MR of the lumbar spine performed one hour prior. ACT 112: Negative or not required by law. The above report was generated using voice recognition software. It may contain grammatical, syntax or spelling errors. Electronically signed by: Rosario Moreno DO 03/06/2021 9:46 AM I & O Totals 24 Hours 03/06/21 03/07/21 03/08/21 06:59 06:59 06:59 Intake Total 2640.5 / 2640.5 2634.712 / 2634.712 210.08 / 210.08 Output Total 2875 / 2875 3235 / 3235 125 / 125 Balance -234.5 / -234.5 -600.288 / -600.288 85.08 / 85.08 Cumulative 02/09/21 16:51 thru 03/07/21 08:27 Intake Total 31188.292 Output Total 03864 Balance 1615.292 RT Ventilator Mngmt (Last Documented) Ventilator Ordered Settings Respiratory Rate 23 03/07/21 07:25 Ventilator - PT Measurements Respiratory Rate 23 Coding Level of Care Code 91076 Subseq Hosp Care Lvl 3 Diagnoses Lumbar stenosis with neurogenic claudication M48.062 Tachycardia R00.0 Hyperkalemia E87.5 Chronic kidney disease N18.9
[2021-03-07] MEDS ORDERED: METOPROLOL TARTRATE 25 MG TAB PO SCH ×2 (09:00→14:00)
[2021-03-07] MEDS ORDERED: METOPROLOL TARTRATE 1 MG/ML VIAL IV ONE (09:00)
[2021-03-07] MEDS: DC IV INSULIN INFUSION 1 EA DEVI SCH ×3 (11:43→11:54)
[2021-03-07] MEDS: INSULIN REGULAR 250 UNITS in SODIUM CHLORIDE 0.9% 247.5 ML IV SCH (11:54)
--- NOTE | 2021-03-07 12:01 | Electrocardiogram Report ---
Test Reason : Blood Pressure : / mmHG Vent. Rate : 133 BPM Atrial Rate : 267 BPM P-R Int : 000 ms QRS Dur : 074 ms QT Int : 310 ms P-R-T Axes : 000 009 112 degrees QTc Int : 461 ms Atrial flutter with variable A-V block with premature ventricular or aberrantly conducted complexes Diffuse Minor Nonspecific ST and T wave abnormality Abnormal ECG When compared with ECG of 25-FEB-2021 09:44, Atrial flutter has replaced Sinus rhythm Vent. rate has increased BY 76 BPM Confirmed by Justin Priest ([id number]) on 03/07/2021 12:00:56 PM Referred By: Kristin Alvarado Confirmed By:Justin Priest
[2021-03-07] MEDS ORDERED: INSULIN ASPART 100 UNITS/ML 3 ML PEN SC SCH ×2 (14:00→14:30)
--- NOTE | 2021-03-07 14:14 | Orthopedic Progress Note ---
Date of Service March 07, 2021 Assessment & Plan (1) Status post spinal surgery: Plan: continue with post-op protocol for mobility monitor drains trial of void once mobilizing better as per urology consult cardiac management as per ICU/cardiology to continue q1h neurological checks while in ICU/PCU setting; may transition to q4h neurological checks once on floor (patient neurologically stable; ICU setting no longer needed for neurological assessment purposes) Admission and Anticipated Discharge Date Admission Date: March 04, 2021 Subjective in ICU no new weakness noted by patient intermittent numbness right sole of foot back pain well-controlled villareal in-situ urology consulted post-op; suggest voiding trial once ambulating well cardiology consulted by critical care team for potential arrythmias post-op, consult pending Physical Exam Physical Exam: vitals: see vital signs section; tachycardic, on 2LNP this AM dressing: clean, dry, intact drain: 10/70 deep/0 superficial in 8 hour prior to midnight, AM measurements pending vascular: no calf tenderness or swelling bilaterally. no signs of DVT Musculoskeletal: 5/5 motor strength bilateral L2-S1 except right L5 3/5, left S1 4/5, right S1 4+/5 Neurologic: Sensation 2/2 to light touch bilateral L2-S1 except right S1 1/2, no saddle anesthesia Results & Data ([facility]) Vital Signs (Past 12 Hours) Vital Signs Temp Pulse Resp BP Pulse Ox 03/07/21 12:59 36.6 C 03/07/21 12:29 124 H 21 99/56 L 93 03/07/21 10:00 117 H 21 99/58 L 96 03/07/21 09:39 133 H 106/61 03/07/21 09:06 121 H 22 113/53 L 94 03/07/21 08:25 139 H 21 95/73 L 92 03/07/21 08:09 133 H 03/07/21 07:25 140 H 23 106/59 L 92 03/07/21 06:38 36.6 C 03/07/21 05:25 126 H 21 92/52 L 91 03/07/21 04:55 121 H 22 106/53 L 91 03/07/21 03:25 123 H 21 114/59 L 90 03/07/21 02:25 125 H 20 114/68 90 PG Care Time/CCT Total # of Minutes Spent Total Time Spent with Patient: Total time spent is greater than 50% in coordination of care (as documented) at patient's floor/unit and/or counseling patient: Coding Level of Care Code None Diagnoses Status post spinal surgery Z98.890
--- NOTE | 2021-03-07 15:22 | Pharmacy Report ---
Pharmacy Glycemic Short Note 2 - Date of Service March 07, 2021 - Glycemic Short BSG Results (Last 24 hours): 03/06/21 03/06/21 03/06/21 16:21 17:20 18:44 Glucose POC Glucose 256 H 289 H 344 H* 03/06/21 03/06/21 03/06/21 18:47 20:34 21:25 Glucose POC Glucose 353 H* 302 H* 249 H 03/06/21 03/07/21 03/07/21 22:59 00:34 01:45 Glucose POC Glucose 174 H 137 H 117 H 03/07/21 03/07/21 03/07/21 03:33 04:42 05:29 Glucose 65 L POC Glucose 99 72 03/07/21 03/07/21 03/07/21 05:55 07:09 08:18 Glucose POC Glucose 120 H 111 H 158 H 03/07/21 03/07/21 03/07/21 09:38 10:39 11:30 Glucose POC Glucose 148 H 129 H 111 H 03/07/21 14:03 Glucose POC Glucose 247 H OUTPATIENT ANTIDIABETIC REGIMEN: * Lantus 50 units HS, Novolog 10 units TID, metformin * A1c = 6.6% 03/05/21 ASSESSMENT: 03/07 * BSGs well controlled with IV insulin infusion. Pt meets criteria to transition off of insulin infusion * High dose Solumedrol ended yesterday so BSGs should continue to improve as hyperglycemic effects wear off * SQ NovoLog given for all CHO consumed while on infusion in addition to SQ basal insulin with Lantus 40 units 24hrs * Outpatient basal insulin dosing is 50 units SQ HS; this was reduced slightly to 40 units for NPO but probably should have been increased secondary to steroids. * Will increase Lantus back to 50 units HS * CF/CR per estimated basal insulin dosing of 50 units * A1c is 6.6% therefore outpatient dosing should be adequate for inpatient without steroids on board 03/06 * BSG control initially improved yesterday, however deteriorated quickly with the addition of high dose IV steroids * Pt is now receiving IV Solu-medrol 250mg Q 6 hrs x 4 doses and will likely receive dexamethasone IV in OR today. Pt to have evacuation of hematomaand revision of spinal surgery. * IV insulin drip initiated due to sustained BSGs in mid-200s with expected ongoing significant insulin resistance for the next 24+ hrs. * Plan to continue basal insulin as previously order for ease of transition back to SQ basal/bolus regimen over next day or two 03/05 * BSGs better controlled this AM * Fasting BSG 145 this AM w/ 60 unis Lantus on board and following receipt of 11 units correctional insulin overnight * Effects of DXM given in OR should be dissipating over the course of the day today * Will resume reduced dose Lantus this evening * Plan to continue stress level 3 (high stress) Novolog doses initially this AM given total daily insulin requirements as outpt ~80 units/day 03/04 * 75 year old male now s/p spinal surgery. With tachycardia postop now transferred to ICU for monitoring. * Patient received 16 units in OR this afternoon, postop BSG elevated at 296 mg/dL - plan to give 10 units IV insulin * Will stress home dose basal and give 60 units x 1 now to account for DXM given in OR earlier * Begin stress of 3 dosing for novolog with overnight checks PLAN FOR INPATIENT GLYCEMIC CONTROL: * Hold outpatient oral diabetes medications (metformin) * DC IV insulin infusion around lunchtime - give NovoLog for CHO and may stop drip 1 hr after NovoLog given * Will recheck BSG at 1400 and correct if needed * Basal insulin * increase Lantus to 50 units Q HS - give first dose a little early (at dinnertime) to increase coverage until steroid hyperglycemia effects wear off. Resume at HS tomorrow * Bolus insulin Q4hrs * Goal Range 110-140 * CF = 15 * CR = 5 PLAN FOR DISCHARGE: * May resume home insulin and metformin regimen on discharge if no contraindications present, A1c 6.6% at goal
[2021-03-07] MEDS ORDERED: INSULIN GLARGINE SOLOSTAR 100 UNITS/ML 3 ML PEN SC SCH (16:30)
--- NOTE | 2021-03-07 17:55 | Hospitalist Progress Note ---
Date of Service March 07, 2021 Assessment & Plan (1) Lumbar stenosis with neurogenic claudication: (2) Lumbar spinal stenosis: Plan: S/P L4-S1 Posterior Lumbar Instrumentation and Fusion, L5-S1 posterior decompression, Local Autograft, Allograft on 03/04/[address] Polanco Patient transferred to the ICU for close monitor MRI on 03/06 showed Focal area of fluid collection at laminectomy site in L5-S1 level which is causing severe stenosis of the central canal. S/P Evacuation of Hematoma Posterior lumbar spine, Revision L5-S1 Laminectomy and right medial facetectomy and foraminotomy performed by Dr. Polanco Hemoglobin dropped to 8.7 today Continue incentive spirometry PT/OT eval as per Ortho Fall precaution Continue monitor H&H and transfuse if H/H dropped below 8 (3) Acute postoperative anemia due to greater than expected blood loss: Plan: Anemia of acute blood loss Due to recent orthopedic procedure Hemoglobin dropped 8.7 (preop hemoglobin was between 15-16) Continue monitoring H&H (4) Hypomagnesemia: Plan: Magnesium 1.5 on admission Mg today 2.6 Continue monitor electrolytes (5) Tachycardia: Plan: Atrial Arrhythmia Possible related to hypovolemia due to low hemoglobin Most recent hgb 8.7 metoprolol 12.5mg q6h cardiology consulted Continue monitor closely (6) Hyperkalemia: Plan: K on admission 5.3 K normalized Continue monitor BMP (7) Chronic kidney disease: Plan: Creatinine 0.94 today Stable (8) BPH (benign prostatic hyperplasia): Plan: Continue Flomax daily (9) Diabetes: Plan: Most recent hemoglobin A1c 6.6 On insulin and NovoLog sliding scale Continue monitor blood sugar (10) HTN (hypertension): Plan: BP has been in the low side Continue to hold lisinopril due to low BP Will monitor BP while on metoprolol (11) HLD (hyperlipidemia): Plan: Continue fish oil and fenofibrate (12) Hypothyroid: Plan: Continue levothyroxine (13) Urinary retention: Plan: Possible related due t to recent surgery, anesthetic agent and BPH Urology on board recommended to keep Morton catheter in place Continue Flomax if BP stable Recommend continue holding Oxybutynin until patient able to void Plan: DVT Prophylaxis Per Surgery Protocol Admission and Anticipated Discharge Date Admission Date: March 04, 2021 Subjective Pt was seen and examined for post op follow up and anemia Sitting in chair with no distress with at bedside Pt said that he feels much better today He continues to have pain His hemovac continues to drain Denies any chest pain, palpitation, dizziness and SOB Physical Exam Physical Exam: General- No acute distress Head- atraumatic Eyes- PERRL, EOMI, ENT- oropharynx clear Neck- supple, no JVD Lungs- clear to auscultation Heart- +tachycardia, no murmur Abdomen- normal bowel sounds, soft, nontender Extremities- no calf tenderness Neuro- alert, oriented x 3; PERRL, EOMI; no facial palsy; no dysarthria Skin- warm & dry Results & Data Results & Data ([facility]) Vital Signs (Past 12 Hours) Vital Signs Temp Pulse Resp BP Pulse Ox 03/07/21 12:59 36.6 C 03/07/21 12:29 124 H 21 99/56 L 93 03/07/21 10:00 117 H 21 99/58 L 96 03/07/21 09:39 133 H 106/61 03/07/21 09:06 121 H 22 113/53 L 94 03/07/21 08:25 139 H 21 95/73 L 92 03/07/21 08:09 133 H 03/07/21 07:25 140 H 23 106/59 L 92 03/07/21 06:38 36.6 C
[2021-03-07 18:26] LABS: Hematocrit (blood only) 26.5 % (42-52); Hemoglobin 8.9 g/dL (14.0-18.0)
[2021-03-07] MEDS: DOCUSATE SODIUM/SENNA 50/8.6MG TAB PO SCH (20:17)
[2021-03-07] MEDS: METOPROLOL TARTRATE 25 MG TAB PO SCH (21:34)
[2021-03-08] MEDS: POLYETHYLENE (MIRALAX) 17 GM PACK PO SCH ×4 (00:26→18:18)
[2021-03-08] MEDS: INSULIN ASPART 100 UNITS/ML 3 ML PEN SC SCH ×6 (00:31→21:35)
[2021-03-08] MEDS: METOPROLOL TARTRATE 25 MG TAB PO SCH ×4 (02:51→21:37)
[2021-03-08 05:02] LABS: Hemoglobin 8.7 g/dL (14.0-18.0); Mean Corpuscular Hemoglobin 31.1 pg (25-34); Mean Corpuscular Hgb Conc 33.5 g/dL (32-36); Mean Corpuscular Volume 92.9 fL (80-100); Platelet Count 170 K/uL (130-400); RDW Coefficient of Variation 14.5 % (11.5-14.5); RDW Standard Deviation 49.7 fL (36.4-46.3); White Blood Count 8.89 K/uL (4.8-10.8)
[2021-03-08 05:35] LABS: Creatinine Clr Calc Pharmacy 73.2 ml/min; Est GFR (African American) 73.8 ml/min; Est GFR (Non-African American) 63.7 ml/min; Magnesium 2.2 mg/dl (1.8-2.4)
[2021-03-08 05:36] LABS: Phosphorus 2.4 mg/dl (2.5-4.9)
[2021-03-08] MEDS: CYCLOBENZAPRINE HCL 10 MG TAB PO SCH ×3 (05:50→21:36)
[2021-03-08] MEDS: LEVOTHYROXINE SODIUM 112 MCG TABLET PO SCH (05:50)
[2021-03-08] MEDS: GABAPENTIN 300 MG CAP PO SCH ×2 (08:04→21:36)
[2021-03-08] MEDS: ROSUVASTATIN CALCIUM 5 MG TAB PO SCH (08:04)
[2021-03-08] MEDS: TAMSULOSIN HCL 0.4 MG CAP PO SCH (08:04)
[2021-03-08] MEDS: PANTOprazole 40 MG TAB PO SCH (08:04)
[2021-03-08] MEDS: CYANOCOBALAMIN 500 MCG TABLET (VITAMIN B-12) PO SCH (08:05)
[2021-03-08] MEDS: FENOFIBRATE NANOCRYSTALLIZED 145 MG TABLET PO SCH (08:05)
--- NOTE | 2021-03-08 09:40 | Pharmacy Report ---
Pharmacy Glycemic Short Note 2 - Date of Service March 08, 2021 - Glycemic Short BSG Results (Last 24 hours): 03/07/21 03/07/21 03/07/21 09:38 10:39 11:30 Glucose POC Glucose 148 H 129 H 111 H 03/07/21 03/07/21 03/07/21 14:03 16:32 20:24 Glucose POC Glucose 247 H 229 H 233 H 03/08/21 03/08/21 03/08/21 00:28 04:06 04:25 Glucose 82 POC Glucose 117 H 103 H OUTPATIENT ANTIDIABETIC REGIMEN: * Lantus 50 units HS, Novolog 10 units TID, metformin * A1c = 6.6% 03/05/21 ASSESSMENT: 03/08 * Pt has received 99 units of insulin over the past 24hrs + IV insulin infusion * 50 units of basal with Lantus * 49 units of bolus with NovoLog * BSGs improved with the addition of IV insulin infusion 03/06-03/07. IV insulin infusion DC yesterday ~ 1200. Rechecked BSG at 1400 and it was elevated at 247 indicating that more basal insulin was needed to transition off of infusion. 7 units of NovoLog given to correct BSG and then Lantus increased and given early with dinner. BSGs markedly improved. * Hyperglycemic effects of Solumedrol should be completely diminished at this point in time. Will start empirically decreasing insulin regimen to prevent hypo tomorrow. 03/07 * BSGs well controlled with IV insulin infusion. Pt meets criteria to transition off of insulin infusion * High dose Solumedrol ended yesterday so BSGs should continue to improve as hyperglycemic effects wear off * SQ NovoLog given for all CHO consumed while on infusion in addition to SQ basal insulin with Lantus 40 units 24hrs * Outpatient basal insulin dosing is 50 units SQ HS; this was reduced slightly to 40 units for NPO but probably should have been increased secondary to steroids. * Will increase Lantus back to 50 units HS * CF/CR per estimated basal insulin dosing of 50 units * A1c is 6.6% therefore outpatient dosing should be adequate for inpatient without steroids on board 03/06 * BSG control initially improved yesterday, however deteriorated quickly with the addition of high dose IV steroids * Pt is now receiving IV Solu-medrol 250mg Q 6 hrs x 4 doses and will likely receive dexamethasone IV in OR today. Pt to have evacuation of hematomaand revision of spinal surgery. * IV insulin drip initiated due to sustained BSGs in mid-200s with expected ongoing significant insulin resistance for the next 24+ hrs. * Plan to continue basal insulin as previously order for ease of transition back to SQ basal/bolus regimen over next day or two 03/05 * BSGs better controlled this AM * Fasting BSG 145 this AM w/ 60 unis Lantus on board and following receipt of 11 units correctional insulin overnight * Effects of DXM given in OR should be dissipating over the course of the day today * Will resume reduced dose Lantus this evening * Plan to continue stress level 3 (high stress) Novolog doses initially this AM given total daily insulin requirements as outpt ~80 units/day 03/04 * 75 year old male now s/p spinal surgery. With tachycardia postop now transferred to ICU for monitoring. * Patient received 16 units in OR this afternoon, postop BSG elevated at 296 mg/dL - plan to give 10 units IV insulin * Will stress home dose basal and give 60 units x 1 now to account for DXM given in OR earlier * Begin stress of 3 dosing for novolog with overnight checks PLAN FOR INPATIENT GLYCEMIC CONTROL: * Hold outpatient oral diabetes medications (metformin) * Basal insulin * decrease Lantus to 45 units Q HS * Bolus insulin ACHS: loosen parameters * Goal Range 110-140 * CF = 20 * CR = 6 PLAN FOR DISCHARGE: * May resume home insulin and metformin regimen on discharge if no contraindications present, A1c 6.6% at goal
[2021-03-08] MEDS: HYDROCODONE/ACETAMOPHEN 5/325MG TAB PO PRN (10:11)
--- NOTE | 2021-03-08 10:36 | Orthopedic Progress Note ---
Date of Service March 08, 2021 Assessment & Plan (1) Status post spinal surgery: Plan: continue with post-op protocol for mobility monitor drains trial of void once mobilizing better as per urology consult cardiac management as per ICU/cardiology transition to q4h neurological checks Admission and Anticipated Discharge Date Admission Date: March 04, 2021 Subjective transitioned from ICU to telemetry, awaiting bed no new weakness noted by patient resolved numbness right foot back pain well-controlled no radiation of pain from back to the lower extremity throughout stay villareal in-situ Physical Exam Physical Exam: vitals: see vital signs section; tachycardic, on 2LNP this AM dressing: clean, dry, intact drain: 40/50 deep/0 superficial in 8 hour prior to midnight, AM measurements pending vascular: no calf tenderness or swelling bilaterally. no signs of DVT Musculoskeletal: 5/5 motor strength bilateral L2-S1 except right L5 3/5, left S1 4/5, right S1 4+/5 Neurologic: Sensation 2/2 to light touch bilateral L2-S1, no saddle anesthesia Results & Data ([facility]) Vital Signs (Past 12 Hours) Vital Signs Temp Pulse Resp BP 03/08/21 04:00 83 21 127/52 L 03/08/21 01:30 87 21 124/71 03/08/21 01:05 36.7 C 03/08/21 01:00 85 21 118/49 L 03/08/21 00:30 93 H 25 H 130/72 03/08/21 00:00 78 21 120/52 L 03/07/21 23:30 67 21 89/45 L 03/07/21 23:00 82 21 115/53 L PG Care Time/CCT Total # of Minutes Spent Total Time Spent with Patient: Total time spent is greater than 50% in coordination of care (as documented) at patient's floor/unit and/or counseling patient: Coding Level of Care Code None Diagnoses Status post spinal surgery Z98.890
--- NOTE | 2021-03-08 13:46 | Cardiology Consultation ---
Date of Consultation March 08, 2021 Assessment & Plan (1) Status post spinal surgery: (2) Acute postoperative anemia due to greater than expected blood loss: (3) Tachycardia: (4) HTN (hypertension): (5) HLD (hyperlipidemia): (6) Hypothyroid: Patient has been tachycardic postoperatively with significant blood loss. Postoperative EKG performed and was read as atrial flutter with rapid ventricular response Currently, he is in sinus rhythm with PACs. At this point, I do not believe we can be certain that he was absolutely in atrial flutter versus sinus tachycardia. He does carry history of TIA so I do believe the most prudent course of action would be to start at least 1 month of anticoagulation once the bleeding risk is appropriate by surgery. Would also recommend the patient have an outpatient assembler dc field ring and cardiac follow-up. Currently he is on oral metoprolol and his rates are improved and should be continued. History of Present Illness Reason for Consultation: Tachycardia Requesting Physician: Dr. Figueroa Attending Physician: Kristin Alvarado MD History of Present Illness Mr. Rodriguez is a 75-year-old gentleman who was admitted to [facility] on March 04 for planned lumbar decompression. During surgery he had a significant mount of blood loss and postoperatively was transferred to the intensive care unit. Upon arrival he is found to be significantly tachycardic. He denies any previous cardiac history and currently states he feels well except for postoperative pain. He denies any chest pain, shortness of breath, palpitations, lightheadedness, dizziness or syncope. Allergies Allergy/AdvReac Type Severity Reaction Status Date / Time niacin Allergy Mild red and Verified 03/04/21 05:42 sweating Home Medications Medication Instructions Recorded Confirmed Type aspirin 81 mg tablet,delayed 81 mg PO QAM 10/11/19 02/24/21 History release cyanocobalamin (vitamin B-12) 1,000 mcg PO QAM 10/11/19 02/24/21 History 1,000 mcg tablet (Vitamin B-12) fenofibrate nanocrystallized 145 145 mg PO QAM 10/11/19 02/24/21 History mg tablet furosemide 40 mg tablet 40 mg PO QAM 10/11/19 02/24/21 History gabapentin 300 mg capsule 300 mg PO BID 10/11/19 03/04/21 History insulin aspart U-100 100 unit/mL 10 unit SUBCUT TIDM 10/11/19 03/04/21 History subcutaneous solution (Novolog U-100 Insulin aspart) insulin glargine 100 unit/mL 50 unit SUBCUT HS 10/11/19 03/04/21 History subcutaneous solution (Lantus U-100 Insulin) levothyroxine 112 mcg tablet 112 mcg PO QAM 10/11/19 02/24/21 History lisinopril 40 mg tablet 40 mg PO QAM 10/11/19 02/24/21 History metformin 1,000 mg tablet 1,000 mg PO BID 10/11/19 03/04/21 History metoprolol tartrate 50 mg tablet 50 mg PO BID 10/11/19 03/04/21 History omega 5-ltc-lmw-fish oil 1,000 mg 1 cap PO QAM 10/11/19 02/24/21 History (120 mg-180 mg) capsule (Fish Oil) omeprazole 20 mg tablet,delayed 20 mg PO QAM 10/11/19 02/24/21 History release oxybutynin chloride 5 mg tablet 5 mg PO BID 10/11/19 03/04/21 History rosuvastatin 5 mg tablet 5 mg PO QAM 10/11/19 02/24/21 History tamsulosin 0.4 mg capsule 0.4 mg PO QAM 10/11/19 02/24/21 History meloxicam 7.5 mg tablet 7.5 mg PO QAM 02/24/21 02/24/21 History Patient History Medical History (Updated 03/08/21 @ 13:45 by Lonnie Parra DO) BPH (benign prostatic hyperplasia) Chronic back pain Diabetes mellitus type 1 Hyperlipidemia Hypertension Hypothyroidism Lumbar stenosis with neurogenic claudication Spinal stenosis Transient ischemic attack (TIA) 2016--no deficits, no neurologist Surgical History History of colonoscopy with polypectomy History of left inguinal hernia repair History of lumbar surgery History of revision of total replacement of right hip joint History of tonsillectomy History of total right hip replacement History of wisdom tooth extraction Family History Father Family history of diabetes mellitus Other No family history of adverse response to anesthesia Social History Smoking Status: Current every day smoker Cigarettes Per Day: 1/2-1 ppd; Second Hand Exposure: No; Do You Dip or Chew Tobacco: No; Tobacco Cessation Education Requested by Patient: No Hx Alcohol Use: No Hx Substance Use: No Preferred Language: Nepalese Communication Ability: Effective Valve Setter Required: No Beliefs That Will Affect Care: None marital status: Single Current Living Situation: Alone Other Information That Helps Us Care for You: No Feels Safe at Home: Yes Safety Concerns: Feels Safe At This Time Assistive Devices: Glasses and Walker Review of Systems Review of Systems: All systems reviewed & are unremarkable except as noted in HPI & below Physical Exam Physical Exam: General: Awake, alert and oriented x 3. No acute distress. HEENT: Normocephalic, atraumatic. Pupils equal, round and reactive to light and accommodation. Extraocular muscles are intact. Anicteric sclera. Moist mucous membranes. Neck: No JVD. No bruit. Cardiovascular: irregularly irregular, unable to appreciate murmur, rub or gallop. Pulmonary: Clear to auscultation bilaterally. No rales, rhonchi, or wheezing. Abdomen: Bowel sounds x 4, soft. No rebound, guarding or tenderness. No organomegaly. Extremities: No clubbing, cyanosis or edema. +2 pedal pulses bilaterally. Skin: Warm and dry. Results & Data ([facility]) Vital Signs (Past 12 Hours) Vital Signs Temp Pulse Pulse Resp BP BP Pulse Ox 03/08/21 11:15 37.2 C 75 16 135/49 L 95 03/08/21 08:00 37.1 C 74 16 132/52 L 96 03/08/21 04:00 83 21 127/52 L
--- NOTE | 2021-03-08 14:36 | Hospitalist Progress Note ---
Date of Service March 08, 2021 Assessment & Plan (1) Lumbar stenosis with neurogenic claudication: (2) Lumbar spinal stenosis: Plan: S/P L4-S1 Posterior Lumbar Instrumentation and Fusion, L5-S1 posterior decompression, Local Autograft, Allograft on 03/04/[address] Polanco Patient transferred to the ICU for close monitor MRI on 03/06 showed Focal area of fluid collection at laminectomy site in L5-S1 level which is causing severe stenosis of the central canal. S/P Evacuation of Hematoma Posterior lumbar spine, Revision L5-S1 Laminectomy and right medial facetectomy and foraminotomy performed by Dr. Polanco Hemoglobin dropped to 8.7 today Continue incentive spirometry PT/OT eval as per Ortho Fall precaution Continue neuro check Continue monitor H&H and transfuse if H/H dropped below 8 (3) Electrolyte imbalance: Plan: Magnesium 1.5 and K 5.3 on admission Phosphate 2.4 today Electrolytes replaced Continue monitor electrolytes (4) Acute postoperative anemia due to greater than expected blood loss: Plan: Anemia of acute blood loss Due to recent orthopedic procedure Hemoglobin dropped 8.7 (preop hemoglobin was between 15-16) Continue monitoring H&H (5) Tachycardia: Plan: Atrial Flutter Possible related to hypovolemia due to low hemoglobin Cardiology on board Cardiology on board recommended to start at least 1 month of anticoagulation once the bleeding risk is appropriate by ortho surgery team Continue metoprolol 12.5mg q6h He would need outpatient manager monitoring and cardiac follow-up on discharge Continue monitor closely (6) Chronic kidney disease: Plan: Creatinine 0.94 today Stable (7) BPH (benign prostatic hyperplasia): Plan: Continue Flomax daily (8) Diabetes: Plan: Most recent hemoglobin A1c 6.6 On insulin and NovoLog sliding scale Continue monitor blood sugar (9) HTN (hypertension): Plan: BP has been in the low side Continue to hold lisinopril due to low BP Will monitor BP while on metoprolol (10) HLD (hyperlipidemia): Plan: Continue fish oil and fenofibrate (11) Hypothyroid: Plan: Continue levothyroxine (12) Urinary retention: Plan: Possible related due t to recent surgery, anesthetic agent and BPH Urology on board recommended to keep Morton catheter in place Continue Flomax if BP stable Recommend to continue holding Oxybutynin until patient able to void Will do voiding trial once pt starts to walk around with PT Plan: DVT Prophylaxis Per Surgery Protocol Disposition Stable to transfer to PCU Admission and Anticipated Discharge Date Admission Date: March 04, 2021 Subjective Patient was seen and examined for postop follow-up and tachycardia Lying in bed with no distress Patient said his feeling much better today He said his pain is controlled as long as it does not move himself much Denies any chest pain, palpitation, dizziness and shortness of breath. Physical Exam Physical Exam: General- No acute distress Head- atraumatic Eyes- PERRL, EOMI, ENT- oropharynx clear Neck- supple, no JVD Lungs- clear to auscultation Heart- +tachycardia, no murmur Abdomen- normal bowel sounds, soft, nontender Extremities- no calf tenderness Neuro- alert, oriented x 3; PERRL, EOMI; no facial palsy; no dysarthria Skin- warm & dry Results & Data Results & Data ([facility]) Vital Signs (Past 12 Hours) Vital Signs Temp Pulse Pulse Resp BP BP Pulse Ox 03/08/21 11:15 37.2 C 75 16 135/49 L 95 03/08/21 08:00 37.1 C 74 16 132/52 L 96 03/08/21 04:00 83 21 127/52 L
[2021-03-08] MEDS: DOCUSATE SODIUM/SENNA 50/8.6MG TAB PO SCH (21:36)
[2021-03-08] MEDS: INSULIN GLARGINE SOLOSTAR 100 UNITS/ML 3 ML PEN SC SCH (21:36)
[2021-03-09] MEDS: POLYETHYLENE (MIRALAX) 17 GM PACK PO SCH ×5 (00:32→23:54)
[2021-03-09] MEDS: METOPROLOL TARTRATE 25 MG TAB PO SCH ×3 (03:50→20:30)
[2021-03-09 05:04] LABS: Hemoglobin 9.6 g/dL (14.0-18.0); Mean Corpuscular Hemoglobin 30.6 pg (25-34); Mean Corpuscular Hgb Conc 33.1 g/dL (32-36); Mean Corpuscular Volume 92.4 fL (80-100); Mean Platelet Volume 9.4 fL (7.4-10.4); Nucleated RBC # (auto) 0.02 K/uL (0-0); Nucleated RBC % (auto) 0.3 %; Platelet Count 200 K/uL (130-400); RDW Coefficient of Variation 14.3 % (11.5-14.5); Red Blood Count 3.14 M/uL (4.7-6.1)
[2021-03-09 05:29] LABS: BUN Creatinine Ratio 19.7 (10-20); Calcium 8.4 mg/dl (8.5-10.1); Creatinine Clr Calc Pharmacy 76.1 ml/min; Est GFR (African American) 85.6 ml/min; Est GFR (Non-African American) 73.8 ml/min; Magnesium 2.2 mg/dl (1.8-2.4); Phosphorus 2.6 mg/dl (2.5-4.9); Potassium 4.3 mmol/L (3.5-5.1)
[2021-03-09] MEDS: CYCLOBENZAPRINE HCL 10 MG TAB PO SCH ×3 (06:20→20:30)
[2021-03-09] MEDS: LEVOTHYROXINE SODIUM 112 MCG TABLET PO SCH (06:20)
--- NOTE | 2021-03-09 08:26 | Orthopedic Progress Note ---
Date of Service March 09, 2021 Assessment & Plan (1) Status post spinal surgery: Plan: continue with post-op protocol for mobility monitor drains trial of void once mobilizing better as per urology consult no anticoagulant/antiplatelets during this stay given recent hematoma evacuation procedure; to be considered for this as an outpatient please will need PT x 2/day, more aggressive mobility given slow progression will need guidelines from cardiology re: timeline for transition from tele to regular bed to allow for more aggressive PT on the ortho unit Admission and Anticipated Discharge Date Admission Date: March 04, 2021 Subjective transitioned from ICU to telemetry, awaiting bed no new weakness noted by patient resolved numbness right foot bakc pain better controlled no radiation of pain from back to the lower extremity villareal in-situ seen by cardiology yesterday for possible tachycardia vs. atrial flutter, plan for eventual anticoagulation once cleared by spine Physical Exam Physical Exam: vitals: see vital signs section; tachycardic, on 2LNP this AM dressing: clean, dry, intact drain: 30/50 deep/0 superficial in 8 hour prior to midnight, AM measurements pending vascular: no calf tenderness or swelling bilaterally. no signs of DVT Musculoskeletal: 5/5 motor strength bilateral L2-S1 except right L5 3/5, left S1 4/5, right S1 4+/5 Neurologic: Sensation 2/2 to light touch bilateral L2-S1, no saddle anesthesia Results & Data ([facility]) Vital Signs (Past 12 Hours) Vital Signs Temp Pulse Resp BP 03/09/21 07:00 75 18 143/54 H 03/09/21 03:34 36.8 C 03/09/21 03:00 80 22 158/73 H 03/09/21 02:00 93 H 19 136/72 03/09/21 01:00 77 20 136/70 03/09/21 00:40 36.8 C 03/09/21 00:00 113 H 20 131/66 03/08/21 23:00 93 H 23 137/82 03/08/21 22:00 83 25 H 147/68 H 03/08/21 21:00 88 22 132/62 PG Care Time/CCT Total # of Minutes Spent Total Time Spent with Patient: Total time spent is greater than 50% in coordination of care (as documented) at patient's floor/unit and/or counseling patient: Coding Level of Care Code None Diagnoses Status post spinal surgery Z98.890
[2021-03-09] MEDS: PANTOprazole 40 MG TAB PO SCH (08:45)
[2021-03-09] MEDS: TAMSULOSIN HCL 0.4 MG CAP PO SCH (08:45)
[2021-03-09] MEDS: CYANOCOBALAMIN 500 MCG TABLET (VITAMIN B-12) PO SCH (08:46)
[2021-03-09] MEDS: ROSUVASTATIN CALCIUM 5 MG TAB PO SCH (08:46)
[2021-03-09] MEDS: FENOFIBRATE NANOCRYSTALLIZED 145 MG TABLET PO SCH (08:46)
[2021-03-09] MEDS: GABAPENTIN 300 MG CAP PO SCH ×2 (08:46→20:29)
[2021-03-09] MEDS: INSULIN ASPART 100 UNITS/ML 3 ML PEN SC SCH ×4 (08:47→20:33)
--- NOTE | 2021-03-09 11:37 | Cardiology Progress Note ---
Date of Service March 09, 2021 Assessment & Plan (1) Tachycardia: Plan: 75-year-old male underwent L4-S1 posterior lumbar instrumentation and fusion, L5-S1 posterior decompression on 03/04/2021 for symptoms of neurogenic claudication. He developed acute postoperative blood loss anemia with preoperative hemoglobin noted to be 16.4, down to as low as 8.7, 8.9 currently. He returned to the operating room on 03/06/2021 and underwent evacuation of a hematoma posterior to the lumbar spine. Transient narrow complex tachycardia was observed, has captured on EKG 03/07/2021 at 7:31 AM the differential diagnosis of which appears to be atrial flutter, or perhaps a non flutter supraventricular tachycardia. He has a history of past remote TIA and is on ASA as an outpatient treatment. At present , increase metoprolol from 12.5 mg two times per day to 25 mg two times per day with goal to get him back on his chronic dose of 50 mg two times per day. Hold off on systemic anticoagulation as he is in sinus rhythm at present, and due to ongoing anemia, recent evaluation of hematoma adjacent to the posterior spine with transient symptoms including urinary retention, and ongoing spine drain. Recommend outpatient Zio site monitor for 14 day to reassess arrhythmia as an outpatient. Stable for transfer out of ICU and off of telemetry from my perspective. Pt has not followed with cardiology as an outpatient previously. His primary care provider is Dr Child of internal medicine in [place]. Patient can follow with out group post discharge at [facility] or establish with another provider closer to home. Admission and Anticipated Discharge Date Admission Date: March 04, 2021 Subjective Patient seen in cardiology follow-up with initial consultation having been performed by Dr Parra. The patient states that he feels well. He states that his legs and feet feel much better compared to how he felt preoperatively. He denies any chest discomfort or shortness of breath. Blood pressure stable. Telemetry reveals sinus rhythm in the 80s to 90s with occasional isolated unifocal PVCs. No recurrence of narrow complex tachycardia noted on telemetry. Review of Systems Review of Systems: All systems reviewed & are unremarkable except as noted in HPI & below Physical Exam Physical Exam: Temp Pulse Resp BP Pulse Ox 36.8 C 75 18 143/54 H 95 03/09/21 03:34 03/09/21 07:00 03/09/21 07:00 03/09/21 07:00 03/08/21 11:15 Constitutional: WD/WN, vitals as above Respiratory: normal respiratory effort, lungs clear to auscultation Gastrointestinal (Abdomen): normal bowel sounds, soft, nontender, no hepatosplenomegaly Neurologic: PERRL, EOMI, accommodation nl, no face palsy, no dysarthria Results & Data ([facility]) Vital Signs (Past 12 Hours) Vital Signs Temp Pulse Resp BP 03/09/21 07:00 75 18 143/54 H 03/09/21 03:34 36.8 C 03/09/21 03:00 80 22 158/73 H 03/09/21 02:00 93 H 19 136/72 03/09/21 01:00 77 20 136/70 03/09/21 00:40 36.8 C 03/09/21 00:00 113 H 20 131/66
--- NOTE | 2021-03-09 16:12 | Electrocardiogram Report ---
Test Reason : Blood Pressure : / mmHG Vent. Rate : 070 BPM Atrial Rate : 080 BPM P-R Int : 198 ms QRS Dur : 082 ms QT Int : 392 ms P-R-T Axes : 060 036 079 degrees QTc Int : 423 ms Sinus rhythm with marked sinus arrhythmia with frequent Premature ventricular complexes Otherwise normal ECG When compared with ECG of 07-MAR-2021 07:31, Sinus rhythm has replaced Atrial flutter Vent. rate has decreased BY 63 BPM Confirmed by Sukhdev Archer ([id number]) on 03/09/2021 4:12:28 PM Referred By: Kristin Alvarado Confirmed By:Sukhdev Archer
--- NOTE | 2021-03-09 16:31 | Electrocardiogram Report ---
Test Reason : Blood Pressure : / mmHG Vent. Rate : 095 BPM Atrial Rate : 095 BPM P-R Int : 190 ms QRS Dur : 072 ms QT Int : 368 ms P-R-T Axes : 044 -04 072 degrees QTc Int : 462 ms Sinus rhythm with occasional Premature ventricular complexes Otherwise Normal ECG When compared with ECG of 08-MAR-2021 14:54, (unconfirmed) No significant change was found Confirmed by Sukhdev Archer ([id number]) on 03/09/2021 4:31:32 PM Referred By: Kristin Alvarado Confirmed By:Sukhdev Archer
--- NOTE | 2021-03-09 17:33 | Hospitalist Progress Note ---
Date of Service March 09, 2021 Assessment & Plan (1) Lumbar stenosis with neurogenic claudication: (2) Lumbar spinal stenosis: Plan: S/P L4-S1 Posterior Lumbar Instrumentation and Fusion, L5-S1 posterior decompression, Local Autograft, Allograft on 03/04/[address] Polanco Patient transferred to the ICU for close monitor MRI on 03/06 showed Focal area of fluid collection at laminectomy site in L5-S1 level which is causing severe stenosis of the central canal. S/P Evacuation of Hematoma Posterior lumbar spine, Revision L5-S1 Laminectomy and right medial facetectomy and foraminotomy performed by Dr. Polanco Hemoglobin dropped to 9.6 today Continue incentive spirometry PT/OT eval as per Ortho Fall precaution Continue neuro check Continue monitor H&H and transfuse if H/H dropped below 8 (3) Electrolyte imbalance: Plan: Magnesium 1.5 and K 5.3 on admission Mag and Phos stable Continue monitor electrolytes (4) Acute postoperative anemia due to greater than expected blood loss: Plan: Anemia of acute blood loss Due to recent orthopedic procedure Hemoglobin dropped 9.6 (preop hemoglobin was between 15-16) Continue monitoring H&H (5) Tachycardia: Plan: Atrial Flutter Possible related to hypovolemia due to low hemoglobin Cardiology on board Cardiology on board recommended to hold off on systemic anticoagulation since pt is in sinus rhythm and recent surgery and hematoma Metoprolol changed to 25 mg twice daily He would need outpatient Zio cafeteria monitor for 14 day to reassess arrhythmia as an outpatient. Continue monitor closely (6) Chronic kidney disease: Plan: Creatinine stable (7) Diabetes: Plan: Most recent hemoglobin A1c 6.6 On insulin and NovoLog sliding scale Continue monitor blood sugar (8) HTN (hypertension): Plan: BP has been in the low side Continue to hold lisinopril due to low BP Will monitor BP while on metoprolol (9) HLD (hyperlipidemia): Plan: Continue fish oil and fenofibrate (10) Hypothyroid: Plan: Continue levothyroxine (11) BPH (benign prostatic hyperplasia): Plan: Continue Flomax daily (12) Urinary retention: Plan: Possible related due t to recent surgery, anesthetic agent and BPH Urology on board recommended to keep Morton catheter in place Continue Flomax if BP stable Recommend to continue holding Oxybutynin until patient able to void Will do voiding trial once pt starts to walk around with PT Plan: DVT Prophylaxis Per Surgery Protocol Disposition Stable to transfer out of the ICU Admission and Anticipated Discharge Date Admission Date: March 04, 2021 Subjective Patient was seen and examined for postop follow-up and elevated the heart rate Sitting in chair with no distress watching TV Patient said that he feels much better today Denies any chest pain, palpitation, dizziness, shortness of breath. Physical Exam Physical Exam: General- No acute distress Head- atraumatic Eyes- PERRL, EOMI, ENT- oropharynx clear Neck- supple, no JVD Lungs- clear to auscultation Heart- +tachycardia, no murmur Abdomen- normal bowel sounds, soft, nontender Extremities- no calf tenderness Neuro- alert, oriented x 3; PERRL, EOMI; no facial palsy; no dysarthria Skin- warm & dry Results & Data Results & Data ([facility]) Vital Signs (Past 12 Hours) Vital Signs Temp Pulse Resp BP Pulse Ox 03/09/21 16:00 98 H 03/09/21 15:00 36.7 C 98 H 23 142/80 H 96 03/09/21 12:11 76 03/09/21 12:00 36.8 C 92 H 20 139/83 98 03/09/21 08:00 120 H 03/09/21 07:00 36.7 C 75 18 143/54 H 95
[2021-03-09] MEDS: DOCUSATE SODIUM/SENNA 50/8.6MG TAB PO SCH (20:29)
[2021-03-09] MEDS: INSULIN GLARGINE SOLOSTAR 100 UNITS/ML 3 ML PEN SC SCH (20:33)
[2021-03-10] MEDS: POLYETHYLENE (MIRALAX) 17 GM PACK PO SCH ×4 (06:13→23:47)
[2021-03-10] MEDS: CYCLOBENZAPRINE HCL 10 MG TAB PO SCH ×3 (06:14→21:18)
[2021-03-10] MEDS: LEVOTHYROXINE SODIUM 112 MCG TABLET PO SCH (06:14)
[2021-03-10 07:35] LABS: Hematocrit (blood only) 31.5 % (42-52); Hemoglobin 10.8 g/dL (14.0-18.0); Mean Corpuscular Hemoglobin 30.8 pg (25-34); Mean Corpuscular Hgb Conc 34.3 g/dL (32-36); Mean Corpuscular Volume 89.7 fL (80-100); Mean Platelet Volume 9.3 fL (7.4-10.4); Platelet Count 252 K/uL (130-400); RDW Coefficient of Variation 14.2 % (11.5-14.5); RDW Standard Deviation 46.5 fL (36.4-46.3); Red Blood Count 3.51 M/uL (4.7-6.1)
[2021-03-10] MEDS: GABAPENTIN 300 MG CAP PO SCH ×2 (08:02→19:56)
[2021-03-10] MEDS: ROSUVASTATIN CALCIUM 5 MG TAB PO SCH (08:02)
[2021-03-10] MEDS: METOPROLOL TARTRATE 25 MG TAB PO SCH ×2 (08:02→19:56)
[2021-03-10] MEDS: CYANOCOBALAMIN 500 MCG TABLET (VITAMIN B-12) PO SCH (08:03)
[2021-03-10] MEDS: PANTOprazole 40 MG TAB PO SCH (08:03)
[2021-03-10] MEDS: FENOFIBRATE NANOCRYSTALLIZED 145 MG TABLET PO SCH (08:03)
[2021-03-10] MEDS: TAMSULOSIN HCL 0.4 MG CAP PO SCH (08:03)
[2021-03-10 08:06] LABS: BUN Creatinine Ratio 16.4 (10-20); Calcium 8.7 mg/dl (8.5-10.1); Creatinine Clr Calc Pharmacy 83.9 ml/min; Est GFR (African American) 97.2 ml/min; Est GFR (Non-African American) 83.8 ml/min; Phosphorus 2.9 mg/dl (2.5-4.9); Potassium 3.8 mmol/L (3.5-5.1)
[2021-03-10] MEDS: INSULIN ASPART 100 UNITS/ML 3 ML PEN SC SCH ×4 (09:12→21:00)
--- NOTE | 2021-03-10 12:28 | Cardiology Progress Note ---
Date of Service March 10, 2021 Assessment & Plan (1) Tachycardia: Plan: Transient tachycardia Acute blood loss anemia Status post surgical evacuation of paraspinal hematoma Plan: Hemoglobin improved to 10.8 today having been 9.6 yesterday and 8.7 on 03/08/2021. Transient hypotension had been noted earlier this day when anemic. Blood pressure is stable. Continue metoprolol tartrate 25 mg twice daily. Plan on titrating this to his prior to hospital dose of 50 mg twice daily. Avoiding antiplatelet therapy/anticoagulation given recent paraspinal hematoma. Spinal drain still in place. Admission and Anticipated Discharge Date Admission Date: March 04, 2021 Subjective Patient seen in follow-up. No complaints with the exception that he cannot find his TV remote, and I assisted him with this endeavor. Review of Systems Review of Systems: All systems reviewed & are unremarkable except as noted in HPI & below Physical Exam Physical Exam: Temp Pulse Resp BP Pulse Ox 36.8 C 75 18 143/54 H 95 03/09/21 03:34 03/09/21 07:00 03/09/21 07:00 03/09/21 07:00 03/08/21 11:15 Constitutional: WD/WN, vitals as above Respiratory: normal respiratory effort, lungs clear to auscultation Gastrointestinal (Abdomen): normal bowel sounds, soft, nontender, no hepatosplenomegaly Neurologic: PERRL, EOMI, accommodation nl, no face palsy, no dysarthria Results & Data ([facility]) Vital Signs (Past 12 Hours) Vital Signs Temp Pulse Resp BP Pulse Ox 03/10/21 07:12 36.7 C 74 18 150/76 H 95
--- NOTE | 2021-03-10 13:02 | Orthopedic Progress Note ---
Date of Service March 10, 2021 Assessment & Plan (1) Status post spinal surgery: Plan: continue with post-op protocol for mobility monitor drains trial of void once mobilizing better as per urology consult, likely tomorrow will likely need rehab placement as per PT Admission and Anticipated Discharge Date Admission Date: March 04, 2021 Subjective transitioned from telemetry to regular bed no new weakness noted by patient resolved numbness right foot back pain well-controlled no radiation of pain from back to the lower extremity villareal in-situ Physical Exam Physical Exam: vitals: see vital signs section; tachycardic, on 2LNP this AM dressing: clean, dry, intact drain: 25/25 deep/0 superficial in 8 hour prior to midnight, AM measurements pending vascular: no calf tenderness or swelling bilaterally. no signs of DVT Musculoskeletal: 5/5 motor strength bilateral L2-S1 except right L5 3/5, left S1 4/5, right S1 4+/5 Neurologic: Sensation 2/2 to light touch bilateral L2-S1, no saddle anesthesia Results & Data ([facility]) Vital Signs (Past 12 Hours) Vital Signs Temp Pulse Resp BP Pulse Ox 03/10/21 07:12 36.7 C 74 18 150/76 H 95 PG Care Time/CCT Total # of Minutes Spent Total Time Spent with Patient: Total time spent is greater than 50% in coordination of care (as documented) at patient's floor/unit and/or counseling patient: Coding Level of Care Code None Diagnoses Status post spinal surgery Z98.890
[2021-03-10] MEDS: DOCUSATE SODIUM/SENNA 50/8.6MG TAB PO SCH (19:57)
[2021-03-10] MEDS: INSULIN GLARGINE SOLOSTAR 100 UNITS/ML 3 ML PEN SC SCH (21:00)
--- NOTE | 2021-03-10 23:01 | Hospitalist Progress Note ---
Date of Service March 10, 2021 Assessment & Plan (1) Lumbar stenosis with neurogenic claudication: (2) Lumbar spinal stenosis: Plan: S/P L4-S1 Posterior Lumbar Instrumentation and Fusion, L5-S1 posterior decompression, Local Autograft, Allograft on 03/04/[address] Polanco Patient transferred to the ICU for close monitor MRI on 03/06 showed Focal area of fluid collection at laminectomy site in L5-S1 level which is causing severe stenosis of the central canal. S/P Evacuation of Hematoma Posterior lumbar spine, Revision L5-S1 Laminectomy and right medial facetectomy and foraminotomy performed by Dr. Polanco Hemoglobin dropped to 10.8 today Continue incentive spirometry PT/OT eval as per Ortho Fall precaution Continue neuro check Continue monitor H&H and transfuse if H/H dropped below 8 (3) Electrolyte imbalance: Plan: Magnesium 1.5 and K 5.3 on admission Mag and Phos stable Continue monitor electrolytes (4) Acute postoperative anemia due to greater than expected blood loss: Plan: Anemia of acute blood loss Due to recent orthopedic procedure Hemoglobin dropped 9.6 (preop hemoglobin was between 15-16) Continue monitoring H&H (5) Tachycardia: Plan: Atrial Flutter Possible related to hypovolemia due to low hemoglobin Cardiology on board Cardiology on board recommended to hold off on systemic anticoagulation since pt is in sinus rhythm and recent surgery and hematoma Metoprolol changed to 25 mg twice daily He would need outpatient Zio teletypesetter monitor for 14 day to reassess arrhythmia as an outpatient. Continue monitor closely (6) Chronic kidney disease: Plan: Creatinine stable (7) Diabetes: Plan: Most recent hemoglobin A1c 6.6 On insulin and NovoLog sliding scale Continue monitor blood sugar (8) HTN (hypertension): Plan: BP has been in the low side Continue to hold lisinopril due to low BP Will monitor BP while on metoprolol (9) HLD (hyperlipidemia): Plan: Continue fish oil and fenofibrate (10) Hypothyroid: Plan: Continue levothyroxine (11) BPH (benign prostatic hyperplasia): Plan: Continue Flomax daily (12) Urinary retention: Plan: Possible related due t to recent surgery, anesthetic agent and BPH Urology on board recommended to keep Morton catheter in place Continue Flomax if BP stable Recommend to continue holding Oxybutynin until patient able to void Will do voiding trial once pt starts to walk around with PT Plan: DVT Prophylaxis Per Surgery Protocol Disposition Stable to transfer out of the ICU Admission and Anticipated Discharge Date Admission Date: March 04, 2021 Subjective Patient was seen and examined for postop follow-up Lying in bed with no acute distress Denies any chest pain, palpitation, dizziness, shortness of breath. Physical Exam Physical Exam: General- No acute distress Head- atraumatic Eyes- PERRL, EOMI, ENT- oropharynx clear Neck- supple, no JVD Lungs- clear to auscultation Heart- +tachycardia, no murmur Abdomen- normal bowel sounds, soft, nontender Extremities- no calf tenderness Neuro- alert, oriented x 3; PERRL, EOMI; no facial palsy; no dysarthria Skin- warm & dry Results & Data Results & Data ([facility]) Vital Signs (Past 12 Hours) Vital Signs Temp Pulse Pulse Resp BP BP Pulse Ox 03/10/21 19:59 88 160/67 H 94 03/10/21 15:44 36.6 C 73 16 138/77 90
[2021-03-11] MEDS: CYCLOBENZAPRINE HCL 10 MG TAB PO SCH ×3 (05:56→22:17)
[2021-03-11] MEDS: LEVOTHYROXINE SODIUM 112 MCG TABLET PO SCH (05:57)
[2021-03-11] MEDS: POLYETHYLENE (MIRALAX) 17 GM PACK PO SCH ×3 (05:59→18:03)
[2021-03-11 06:36] LABS: Hematocrit (blood only) 31.6 % (42-52); Hemoglobin 10.8 g/dL (14.0-18.0); Mean Corpuscular Hemoglobin 30.9 pg (25-34); Mean Corpuscular Hgb Conc 34.2 g/dL (32-36); Mean Corpuscular Volume 90.5 fL (80-100); Mean Platelet Volume 8.9 fL (7.4-10.4); Platelet Count 264 K/uL (130-400); RDW Coefficient of Variation 14.5 % (11.5-14.5); RDW Standard Deviation 47.6 fL (36.4-46.3); Red Blood Count 3.49 M/uL (4.7-6.1); White Blood Count 9.77 K/uL (4.8-10.8)
[2021-03-11 07:13] LABS: Calcium 8.8 mg/dl (8.5-10.1); Creatinine Clr Calc Pharmacy 75.6 ml/min; Est GFR (African American) 85.6 ml/min; Est GFR (Non-African American) 73.8 ml/min; Magnesium 2.1 mg/dl (1.8-2.4); Phosphorus 3.2 mg/dl (2.5-4.9); Potassium 4.2 mmol/L (3.5-5.1)
[2021-03-11] MEDS: CYANOCOBALAMIN 500 MCG TABLET (VITAMIN B-12) PO SCH (08:25)
[2021-03-11] MEDS: METOPROLOL TARTRATE 25 MG TAB PO SCH (08:25)
[2021-03-11] MEDS: TAMSULOSIN HCL 0.4 MG CAP PO SCH (08:25)
[2021-03-11] MEDS: FENOFIBRATE NANOCRYSTALLIZED 145 MG TABLET PO SCH (08:25)
[2021-03-11] MEDS: ROSUVASTATIN CALCIUM 5 MG TAB PO SCH (08:26)
[2021-03-11] MEDS: PANTOprazole 40 MG TAB PO SCH (08:26)
[2021-03-11] MEDS: GABAPENTIN 300 MG CAP PO SCH ×2 (08:26→22:15)
[2021-03-11] MEDS: INSULIN ASPART 100 UNITS/ML 3 ML PEN SC SCH ×4 (09:30→22:17)
--- NOTE | 2021-03-11 09:37 | Cardiology Progress Note ---
Date of Service March 11, 2021 Assessment & Plan (1) Tachycardia: Plan: Transient tachycardia Acute blood loss anemia Status post surgical evacuation of paraspinal hematoma Plan: Hemoglobin stable at 10.8 today. Transient hypotension had been noted earlier this day when anemic. Blood pressure is stable. Titrate metoprolol to his chronic outpatient dose of 50 mg two times per day. Avoiding antiplatelet therapy/anticoagulation given recent paraspinal hematoma. Spinal drain still in place. Admission and Anticipated Discharge Date Admission Date: March 04, 2021 Subjective Patient seen in follow up. Denies complaints. Spine drains still in place. He describes progressing well with PT. Review of Systems Review of Systems: All systems reviewed & are unremarkable except as noted in HPI & below Physical Exam Physical Exam: Temp Pulse Resp BP Pulse Ox 36.8 C 75 18 143/54 H 95 03/09/21 03:34 03/09/21 07:00 03/09/21 07:00 03/09/21 07:00 03/08/21 11:15 Constitutional: WD/WN, vitals as above Respiratory: normal respiratory effort, lungs clear to auscultation Gastrointestinal (Abdomen): normal bowel sounds, soft, nontender, no hepatosplenomegaly Neurologic: PERRL, EOMI, accommodation nl, no face palsy, no dysarthria Results & Data ([facility]) Vital Signs (Past 12 Hours) Vital Signs Temp Pulse Resp BP Pulse Ox 03/11/21 07:12 36.5 C 88 18 147/76 H 93 03/10/21 23:25 36.4 C L 66 16 120/66 94 Laboratory Results CBC 03/11/21 Range/Units 06:23 WBC 9.77 (4.8-10.8) K/uL RBC 3.49 L (4.7-6.1) M/uL Hgb 10.8 L (14.0-18.0) g/dL Hct 31.6 L (42-52) % Plt Count 264 (130-400) K/uL Comprehensive Metabolic Panel 03/11/21 Range/Units 06:23 Sodium 136 (136-145) mmol/L Potassium 4.2 (3.5-5.1) mmol/L Chloride 106 (98-107) mmol/L Carbon Dioxide 29 (21-32) mmol/L BUN 14 (7-18) mg/dl Creatinine 1.00 (0.6-1.4) mg/dl Glucose 112 H (70-99) mg/dl Calcium 8.8 (8.5-10.1) mg/dl Intake and Output 03/10/21 03/11/21 03/11/21 22:59 06:59 14:59 Intake Total 300 / 400 100 / 400 Output Total 1830 / 4435 925 / 4435 Balance -1530 / -4035 -825 / -4035 Intake: Oral 300 / 400 100 / 400 Output: Urine Amount (Catheter) 1775 / 4305 850 / 4305 Morton/Indwelling 1775 / 4305 850 / 4305 Drain Output 55 / 130 75 / 130 Left Back Hemovac #1 5 / 30 25 / 30 Right Back Hemovac #2 50 / 100 50 / 100 Right Back Hemovac #3 0 / 0 0 / 0
[2021-03-11] MEDS ORDERED: METOPROLOL TARTRATE 25 MG TAB PO STA (09:40)
--- NOTE | 2021-03-11 11:14 | Orthopedic Progress Note ---
Date of Service March 11, 2021 Assessment & Plan (1) Status post spinal surgery: Plan: monitor drains discussed with RN increased mobility, to discuss with urology plan for trial of void Admission and Anticipated Discharge Date Admission Date: March 04, 2021 Subjective no new weakness noted by patient resolved numbness right foot back pain well-controlled no radiation of pain from back to the lower extremity villareal in-situ improved mobility Physical Exam Physical Exam: vitals: see vital signs section; on RA dressing: clean, dry, intact drain: 50/25 deep/0 superficial vascular: no calf tenderness or swelling bilaterally. no signs of DVT Musculoskeletal: 5/5 motor strength bilateral L2-S1 except right L5 3/5, left S1 4/5, right S1 4+/5 Neurologic: Sensation 2/2 to light touch bilateral L2-S1, no saddle anesthesia Results & Data ([facility]) Vital Signs (Past 12 Hours) Vital Signs Temp Pulse Resp BP Pulse Ox 03/11/21 07:12 36.5 C 88 18 147/76 H 93 03/10/21 23:25 36.4 C L 66 16 120/66 94 PG Care Time/CCT Total # of Minutes Spent Total Time Spent with Patient: Total time spent is greater than 50% in coordination of care (as documented) at patient's floor/unit and/or counseling patient: Coding Level of Care Code None Diagnoses Status post spinal surgery Z98.890
--- NOTE | 2021-03-11 13:27 | Pharmacy Report ---
Pharmacy Glycemic Short Note 2 - Date of Service March 11, 2021 - Glycemic Short BSG Results (Last 24 hours): 03/10/21 03/10/21 03/11/21 17:20 20:45 06:23 Glucose 112 H POC Glucose 131 H 181 H 03/11/21 03/11/21 08:32 12:21 Glucose POC Glucose 114 H 253 H OUTPATIENT ANTIDIABETIC REGIMEN: * Lantus 50 units HS, Novolog 10 units TID, metformin * A1c = 6.6% 03/05/21 ASSESSMENT: 03/11: * Pt received total of 71 units of insulin yesterday; 45 units basal + 26 units bolus. * AM Fasting BSG at goal= 114 mg/dl. Continued same basal insulin dose. * Post prandial BSGs yesterday were either at goal or near it so continued same Novolog parameters. * Today, pre-lunch BSG was elevated at 253 mg/dl. This is probably because the AM Novolog was given around 2 hrs late. Expect BSG to trend down by dinner. 03/08 * Pt has received 99 units of insulin over the past 24hrs + IV insulin infusion * 50 units of basal with Lantus * 49 units of bolus with NovoLog * BSGs improved with the addition of IV insulin infusion 03/06-03/07. IV insulin infusion DC yesterday ~ 1200. Rechecked BSG at 1400 and it was elevated at 247 indicating that more basal insulin was needed to transition off of infusion. 7 units of NovoLog given to correct BSG and then Lantus increased and given early with dinner. BSGs markedly improved. * Hyperglycemic effects of Solumedrol should be completely diminished at this point in time. Will start empirically decreasing insulin regimen to prevent hypo tomorrow. 03/07 * BSGs well controlled with IV insulin infusion. Pt meets criteria to transition off of insulin infusion * High dose Solumedrol ended yesterday so BSGs should continue to improve as hyperglycemic effects wear off * SQ NovoLog given for all CHO consumed while on infusion in addition to SQ basal insulin with Lantus 40 units 24hrs * Outpatient basal insulin dosing is 50 units SQ HS; this was reduced slightly to 40 units for NPO but probably should have been increased secondary to steroids. * Will increase Lantus back to 50 units HS * CF/CR per estimated basal insulin dosing of 50 units * A1c is 6.6% therefore outpatient dosing should be adequate for inpatient without steroids on board 03/06 * BSG control initially improved yesterday, however deteriorated quickly with the addition of high dose IV steroids * Pt is now receiving IV Solu-medrol 250mg Q 6 hrs x 4 doses and will likely receive dexamethasone IV in OR today. Pt to have evacuation of hematomaand revision of spinal surgery. * IV insulin drip initiated due to sustained BSGs in mid-200s with expected ongoing significant insulin resistance for the next 24+ hrs. * Plan to continue basal insulin as previously order for ease of transition back to SQ basal/bolus regimen over next day or two 03/05 * BSGs better controlled this AM * Fasting BSG 145 this AM w/ 60 unis Lantus on board and following receipt of 11 units correctional insulin overnight * Effects of DXM given in OR should be dissipating over the course of the day today * Will resume reduced dose Lantus this evening * Plan to continue stress level 3 (high stress) Novolog doses initially this AM given total daily insulin requirements as outpt ~80 units/day 03/04 * 75 year old male now s/p spinal surgery. With tachycardia postop now transferred to ICU for monitoring. * Patient received 16 units in OR this afternoon, postop BSG elevated at 296 mg/dL - plan to give 10 units IV insulin * Will stress home dose basal and give 60 units x 1 now to account for DXM given in OR earlier * Begin stress of 3 dosing for novolog with overnight checks PLAN FOR INPATIENT GLYCEMIC CONTROL: * Hold outpatient oral diabetes medications (metformin) * Basal insulin: continued - Lantus to 45 units Q HS * Bolus insulin ACHS: continued same * Goal Range 110-140 * CF = 15 * CR = 4 with breakfast and 5 with lunch, dinner and bedtime checks PLAN FOR DISCHARGE: * May resume home insulin and metformin regimen on discharge if no contraindications present, A1c 6.6% at goal
[2021-03-11] MEDS: LIDOCAINE 5% 1 PATCH TD SCH (13:45)
[2021-03-11] MEDS: HYDROCODONE/ACETAMOPHEN 5/325MG TAB PO PRN (15:35)
--- NOTE | 2021-03-11 19:25 | Hospitalist Progress Note ---
Date of Service March 11, 2021 Assessment & Plan (1) Lumbar stenosis with neurogenic claudication: (2) Lumbar spinal stenosis: Plan: S/P L4-S1 Posterior Lumbar Instrumentation and Fusion, L5-S1 posterior decompression, Local Autograft, Allograft on 03/04/[address] Polanco Patient transferred to the ICU for close monitor MRI on 03/06 showed Focal area of fluid collection at laminectomy site in L5-S1 level which is causing severe stenosis of the central canal. S/P Evacuation of Hematoma Posterior lumbar spine, Revision L5-S1 Laminectomy and right medial facetectomy and foraminotomy performed by Dr. Polanco Hemoglobin stable Continue incentive spirometry PT/OT eval as per Ortho Fall precaution Continue neuro check Continue monitor H&H and transfuse if H/H dropped below 8 (3) Electrolyte imbalance: Plan: Magnesium 1.5 and K 5.3 on admission Mag and Phos stable Continue monitor electrolytes (4) Acute postoperative anemia due to greater than expected blood loss: Plan: Anemia of acute blood loss Due to recent orthopedic procedure Hemoglobin dropped 9.6 (preop hemoglobin was between 15-16) Continue monitoring H&H (5) Tachycardia: Plan: Atrial Flutter Possible related to hypovolemia due to low hemoglobin Cardiology on board Cardiology on board recommended to hold off on systemic anticoagulation since pt is in sinus rhythm and recent surgery and hematoma Metoprolol changed to 25 mg twice daily He would need outpatient Zio surveillance monitor for 14 day to reassess arrhythmia as an outpatient. Continue monitor closely (6) Chronic kidney disease: Plan: Creatinine stable (7) Diabetes: Plan: Most recent hemoglobin A1c 6.6 On insulin and NovoLog sliding scale Continue monitor blood sugar (8) HTN (hypertension): Plan: BP has been in the low side Continue to hold lisinopril due to low BP Will monitor BP while on metoprolol (9) HLD (hyperlipidemia): Plan: Continue fish oil and fenofibrate (10) Hypothyroid: Plan: Continue levothyroxine (11) BPH (benign prostatic hyperplasia): Plan: Continue Flomax daily (12) Urinary retention: Plan: Possible related due t to recent surgery, anesthetic agent and BPH Urology on board recommended to keep Morton catheter in place Continue Flomax if BP stable Recommend to continue holding Oxybutynin until patient able to void Morton catheter removed by urology for voiding trial Plan: DVT Prophylaxis Per Surgery Protocol Disposition Plan to go to rehab Admission and Anticipated Discharge Date Admission Date: March 04, 2021 Subjective Patient was seen and examined for postop follow-up Lying in bed with no acute distress He said that he is having some pain in his lower extremity Denies any chest pain, palpitation, dizziness, shortness of breath. Physical Exam Physical Exam: General- No acute distress Head- atraumatic Eyes- PERRL, EOMI, ENT- oropharynx clear Neck- supple, no JVD Lungs- clear to auscultation Heart- +tachycardia, no murmur Abdomen- normal bowel sounds, soft, nontender Extremities- no calf tenderness Neuro- alert, oriented x 3; PERRL, EOMI; no facial palsy; no dysarthria Skin- warm & dry Results & Data Results & Data ([facility]) Vital Signs (Past 12 Hours) Vital Signs Temp Pulse Resp BP Pulse Ox 03/11/21 15:44 36.8 C 66 18 122/68 95
[2021-03-11] MEDS: METOPROLOL TARTRATE 50 MG TAB PO SCH (22:16)
[2021-03-11] MEDS: INSULIN GLARGINE SOLOSTAR 100 UNITS/ML 3 ML PEN SC SCH (22:18)
[2021-03-11] MEDS: DOCUSATE SODIUM/SENNA 50/8.6MG TAB PO SCH (22:20)
[2021-03-12] MEDS: POLYETHYLENE (MIRALAX) 17 GM PACK PO SCH (00:12)
[2021-03-12] MEDS: LEVOTHYROXINE SODIUM 112 MCG TABLET PO SCH (05:16)
[2021-03-12] MEDS: CYCLOBENZAPRINE HCL 10 MG TAB PO SCH ×3 (05:37→20:45)
[2021-03-12 06:39] LABS: Hematocrit (blood only) 31.6 % (42-52); Hemoglobin 10.7 g/dL (14.0-18.0); Mean Corpuscular Hemoglobin 30.5 pg (25-34); Mean Corpuscular Hgb Conc 33.9 g/dL (32-36); Mean Platelet Volume 8.7 fL (7.4-10.4); Nucleated RBC # (auto) 0.02 K/uL (0-0); Nucleated RBC % (auto) 0.2 %; Platelet Count 307 K/uL (130-400); RDW Coefficient of Variation 14.7 % (11.5-14.5); RDW Standard Deviation 47.4 fL (36.4-46.3); Red Blood Count 3.51 M/uL (4.7-6.1); White Blood Count 9.91 K/uL (4.8-10.8)
[2021-03-12 07:05] LABS: BUN Creatinine Ratio 15.4 (10-20); Calcium 8.9 mg/dl (8.5-10.1); Creatinine Clr Calc Pharmacy 65.1 ml/min; Est GFR (African American) 71.5 ml/min; Est GFR (Non-African American) 61.7 ml/min; Phosphorus 2.8 mg/dl (2.5-4.9); Potassium 4.2 mmol/L (3.5-5.1)
[2021-03-12] MEDS: FENOFIBRATE NANOCRYSTALLIZED 145 MG TABLET PO SCH (08:49)
[2021-03-12] MEDS: ROSUVASTATIN CALCIUM 5 MG TAB PO SCH (08:50)
[2021-03-12] MEDS: PANTOprazole 40 MG TAB PO SCH (08:50)
[2021-03-12] MEDS: GABAPENTIN 300 MG CAP PO SCH ×2 (08:50→20:41)
[2021-03-12] MEDS: TAMSULOSIN HCL 0.4 MG CAP PO SCH (08:50)
[2021-03-12] MEDS: METOPROLOL TARTRATE 50 MG TAB PO SCH ×2 (08:50→20:40)
[2021-03-12] MEDS: CYANOCOBALAMIN 500 MCG TABLET (VITAMIN B-12) PO SCH (08:50)
[2021-03-12] MEDS: LIDOCAINE 5% 1 PATCH TD SCH (08:51)
[2021-03-12] MEDS: INSULIN ASPART 100 UNITS/ML 3 ML PEN SC SCH ×4 (09:09→20:41)
--- NOTE | 2021-03-12 09:13 | Orthopedic Progress Note ---
Date of Service March 12, 2021 Assessment & Plan (1) Status post spinal surgery: Plan: continue with mobility transition drains from suction to gravity will monitor drain, possible removal tomorrow possible discharge to rehab in 2 days if able given COVID precaution currently Admission and Anticipated Discharge Date Admission Date: March 04, 2021 Subjective possible exposure to COVID visitor (hospital roommate's tested positive subsequent to visit) COVID test negative since, moved to [facility] room for precuation trial of void yesterday organized by urology, no concern overnight with independent urination (last bladder ultrasound 505 with immediate 400cc urination following as per report) improved mobility no new weakness noted by patient resolved numbness right foot back pain well-controlled no radiation of pain from back to the lower extremity Physical Exam Physical Exam: vitals: see vital signs section; on RA dressing: mild serosang discharge drain: 15/0 deep/0 superficial vascular: no calf tenderness or swelling bilaterally. no signs of DVT Musculoskeletal: 5/5 motor strength bilateral L2-S1 except right L5 3/5, left S1 4/5, right S1 4+/5 Neurologic: Sensation 2/2 to light touch bilateral L2-S1, no saddle anesthesia Results & Data ([facility]) Vital Signs (Past 12 Hours) Vital Signs Temp Pulse Pulse Resp BP Pulse Ox 03/12/21 05:20 36.5 C 82 18 132/66 95 03/11/21 23:01 36.9 C 82 20 125/71 95 PG Care Time/CCT Total # of Minutes Spent Total Time Spent with Patient: Total time spent is greater than 50% in coordination of care (as documented) at patient's floor/unit and/or counseling patient: Coding Level of Care Code None Diagnoses Status post spinal surgery Z98.890
--- NOTE | 2021-03-12 10:00 | Communication Note ---
Date of Service: March 12, 2021 Chart reviewed Patient on isolation due to COVID-19 exposure as spouse of hospital roommate tested positive. Pt is afebrile on vital signs. COVID-19 screen performed 03/11 on pt negative. HR and BP are stable on [employer]ER dose of metoprolol 50 mg BID. No anticoagulation or antiplatelet therapy given h/o spinal hematoma, ongoing drains in place. Plan for 2 week global marketing specialist as outpatient. I think it is premature to commit him to anticoagulation. Episode of tachycardia took place in the setting of symptomatic acute blood loss anemia with hypotension and hyperkalemia. Beta syed had also been on hold at that time. Differential diagnosis based on my review of the EKG dated, 03/07/21 includes SVT and paroxysmal atrial flutter. He does however have a h/o past TIA and therefore further investigation is warranted. Pt unaware of indication of chronic metoprolol treatment which he has been on for years per his recollection. Pt can follow up with our group or with provider closer to home post hospital stay.
--- NOTE | 2021-03-12 13:25 | Communication Note ---
Date of Service: March 12, 2021 Patient with urinary retention s/p extensive lumbar surgery on 03/04/21. Morton catheter removed for voiding trial on 03/11/21. Urology service called by nursing this afternoon to reassess patient for PVRs of ~200 mL since catheter removal yesterday. Reviewed with Dr. Nava, urologist communication lecturer. Recommend continue to monitor post void residual bladder scans. Recommend place Morton catheter if PVR > 500 mL. Will arrange outpatient follow-up with our service.
[2021-03-12] MEDS: DOCUSATE SODIUM/SENNA 50/8.6MG TAB PO SCH (20:36)
[2021-03-12] MEDS: INSULIN GLARGINE SOLOSTAR 100 UNITS/ML 3 ML PEN SC SCH (20:41)
--- NOTE | 2021-03-12 23:22 | Hospitalist Progress Note ---
Date of Service March 12, 2021 Assessment & Plan (1) Lumbar stenosis with neurogenic claudication: (2) Lumbar spinal stenosis: Plan: S/P L4-S1 Posterior Lumbar Instrumentation and Fusion, L5-S1 posterior decompression, Local Autograft, Allograft on 03/04/[address] Polanco Patient transferred to the ICU for close monitor MRI on 03/06 showed Focal area of fluid collection at laminectomy site in L5-S1 level which is causing severe stenosis of the central canal. S/P Evacuation of Hematoma Posterior lumbar spine, Revision L5-S1 Laminectomy and right medial facetectomy and foraminotomy performed by Dr. Polanco Hemoglobin stable Continue incentive spirometry PT/OT eval as per Ortho Fall precaution Continue neuro check Continue monitor H&H and transfuse if H/H dropped below 8 (3) Electrolyte imbalance: Plan: Magnesium 1.5 and K 5.3 on admission Mag and Phos stable Continue monitor electrolytes (4) Acute postoperative anemia due to greater than expected blood loss: Plan: Anemia of acute blood loss Due to recent orthopedic procedure Hemoglobin dropped 9.6 (preop hemoglobin was between 15-16) Continue monitoring H&H (5) Tachycardia: Plan: Atrial Flutter Possible related to hypovolemia due to low hemoglobin Cardiology on board Cardiology on board recommended to hold off on systemic anticoagulation since pt is in sinus rhythm and recent surgery and hematoma Metoprolol changed to 50 mg twice daily He would need outpatient [employer] shelter monitor for 14 day to reassess arrhythmia as an outpatient. Continue monitor closely (6) Chronic kidney disease: Plan: Creatinine stable (7) Diabetes: Plan: Most recent hemoglobin A1c 6.6 On insulin and NovoLog sliding scale Continue monitor blood sugar (8) HTN (hypertension): Plan: BP has been in the low side Continue to hold lisinopril due to low BP Will monitor BP while on metoprolol (9) HLD (hyperlipidemia): Plan: Continue fish oil and fenofibrate (10) Hypothyroid: Plan: Continue levothyroxine (11) BPH (benign prostatic hyperplasia): Plan: Continue Flomax daily (12) Urinary retention: Plan: Possible related due t to recent surgery, anesthetic agent and BPH Urology on board recommended to keep Morton catheter in place Continue Flomax if BP stable Recommend to continue holding Oxybutynin until patient able to void Morton catheter removed by urology for voiding trial on 03/11 Recommend continue to monitor post void residual bladder scans. Recommend place Morton catheter if PVR > 500 mL. Will arrange outpatient follow-up with our service. Plan: DVT Prophylaxis Per Surgery Protocol Possible Covid 19 exposure Repeat covid 19 negative on 03/11 infectious control said patient was not exposed because when the roommate family who was tested positive came to visit, Patient was in the ICU at that time Continue monitor Disposition Plan to go to rehab Admission and Anticipated Discharge Date Admission Date: March 04, 2021 Subjective Patient was seen and examined for postop follow-up Lying in bed with no acute distress He was being isolated because he was exposure with Covid positive infectious control said patient was not exposed because when the roommate family who was tested positive came to visit, Patient was in the ICU at that time Denies any chest pain, palpitation, dizziness, shortness of breath. Physical Exam Physical Exam: General- No acute distress Head- atraumatic Eyes- PERRL, EOMI, ENT- oropharynx clear Neck- supple, no JVD Lungs- clear to auscultation Heart- +tachycardia, no murmur Abdomen- normal bowel sounds, soft, nontender Extremities- no calf tenderness Neuro- alert, oriented x 3; PERRL, EOMI; no facial palsy; no dysarthria Skin- warm & dry Results & Data Results & Data ([facility]) Vital Signs (Past 12 Hours) Vital Signs Temp Pulse Resp BP BP Pulse Ox 03/12/21 20:38 93 H 118/64 03/12/21 15:36 36.9 C 81 16 111/66 93
[2021-03-13] MEDS: LEVOTHYROXINE SODIUM 112 MCG TABLET PO SCH (05:40)
[2021-03-13] MEDS: CYANOCOBALAMIN 500 MCG TABLET (VITAMIN B-12) PO SCH (05:40)
[2021-03-13] MEDS: CYCLOBENZAPRINE HCL 10 MG TAB PO SCH ×3 (06:18→21:26)
--- NOTE | 2021-03-13 07:11 | Orthopedic Progress Note ---
Date of Service March 13, 2021 Assessment & Plan (1) Status post spinal surgery: Plan: remove drain clearance and discharge planning by hospitalist/cardiology to be finalized today plan for d/c to rehab tomorrow AM Admission and Anticipated Discharge Date Admission Date: March 04, 2021 Subjective cleared out of isolation for previous COVID possible exposure continues to void independently, outpatient f/u with urology improved mobility no new weakness noted by patient resolved numbness right foot back pain well-controlled no radiation of pain from back to the lower extremity Physical Exam Physical Exam: vitals: see vital signs section; on RA dressing: clean, dry, intact drain: 20/0 deep/0 superficial vascular: no calf tenderness or swelling bilaterally. no signs of DVT Musculoskeletal: 5/5 motor strength bilateral L2-S1 except right L5 3/5, left S1 4/5, right S1 4+/5 Neurologic: Sensation 2/2 to light touch bilateral L2-S1, no saddle anesthesia Results & Data ([facility]) Vital Signs (Past 12 Hours) Vital Signs Temp Pulse Resp BP BP Pulse Ox 03/12/21 23:27 36.6 C 82 17 117/71 93 03/12/21 20:38 93 H 118/64 PG Care Time/CCT Total # of Minutes Spent Total Time Spent with Patient: Total time spent is greater than 50% in coordination of care (as documented) at patient's floor/unit and/or counseling patient: Coding Level of Care Code None Diagnoses Status post spinal surgery Z98.890
[2021-03-13] MEDS: INSULIN ASPART 100 UNITS/ML 3 ML PEN SC SCH ×4 (08:54→21:15)
[2021-03-13] MEDS: FENOFIBRATE NANOCRYSTALLIZED 145 MG TABLET PO SCH (08:57)
[2021-03-13] MEDS: ROSUVASTATIN CALCIUM 5 MG TAB PO SCH (08:58)
[2021-03-13] MEDS: PANTOprazole 40 MG TAB PO SCH (08:58)
[2021-03-13] MEDS: METOPROLOL TARTRATE 50 MG TAB PO SCH ×2 (08:58→21:26)
[2021-03-13] MEDS: LIDOCAINE 5% 1 PATCH TD SCH (08:58)
[2021-03-13] MEDS: TAMSULOSIN HCL 0.4 MG CAP PO SCH (08:58)
[2021-03-13] MEDS: GABAPENTIN 300 MG CAP PO SCH ×2 (08:58→21:26)
--- NOTE | 2021-03-13 10:47 | Cardiology Progress Note ---
Date of Service March 13, 2021 Assessment & Plan (1) Tachycardia: Plan: Transient tachycardia Acute blood loss anemia Status post surgical evacuation of paraspinal hematoma History of past TIA episode Plan: Hemoglobin has obtained yesterday 03/12/2021 was stable at 10.7. Transient hypotension had been noted earlier this day when anemic. The patient is on his prior to hospital dose of metoprolol tartrate 50 milligrams twice daily. He is back on tamsulosin. Blood pressure is well controlled. A single elevated potassium reading noted regular this hospital stay, that has normalized off of lisinopril. His prior to hospital dose of lisinopril 40 milligrams daily. Perhaps would be prudent to resume this but at lower dose, 20 milligrams daily. With regards to follow-up. I recommend proceeding with a 2 week Zio desk interviewer which will be placed at the [facility] facility after his discharge from rehab. He is to have cardiology follow up at [facility] in about 6 weeks , so that the monitor results will be available at the time of follow up. he has not previously followed with a cardiology practice. He lives near [place], but states he is agreeable to follow up at [facility]. Would discharge on no aspirin or anticoagulation given h/o spinal hematoma. Differ DVT prophylaxis plan to spine surgery service, but will likely continue SCDs for DVT prophylaxis at rehab. I have messaged our office to arrange the monitor and follow up visit with me. Admission and Anticipated Discharge Date Admission Date: March 04, 2021 Subjective Patient seen in cardiology follow-up. He is off of isolation and has no symptoms suggestive of COVID-19 infection. He feels well. Per Dr Alvarado's progress note from earlier this morning, plan is to remove his spine drain today, and transfer him to rehabilitation when bed available. At the time my assessment the spine drain was still in place. Patient denies any subjective palpitations. Vital signs stable. He is no longer on telemetry, and is doing well with physical therapy. Review of Systems Review of Systems: All systems reviewed & are unremarkable except as noted in HPI & below Physical Exam Physical Exam: Temp Pulse Resp BP Pulse Ox 36.8 C 75 18 143/54 H 95 03/09/21 03:34 03/09/21 07:00 03/09/21 07:00 03/09/21 07:00 03/08/21 11:15 Constitutional: WD/WN, vitals as above Respiratory: normal respiratory effort, lungs clear to auscultation Gastrointestinal (Abdomen): normal bowel sounds, soft, nontender, no hepatosplenomegaly Neurologic: PERRL, EOMI, accommodation nl, no face palsy, no dysarthria Results & Data ([facility]) Vital Signs (Past 12 Hours) Vital Signs Temp Pulse Resp BP Pulse Ox 03/13/21 07:32 36.6 C 69 18 146/67 H 96 03/12/21 23:27 36.6 C 82 17 117/71 93
--- NOTE | 2021-03-13 10:55 | Pharmacy Report ---
Pharmacy Glycemic Short Note 2 - Date of Service March 13, 2021 - Glycemic Short BSG Results (Last 24 hours): 03/12/21 03/12/21 03/12/21 12:25 17:28 20:35 POC Glucose 137 H 146 H 142 H 03/13/21 03/13/21 03/13/21 08:25 08:28 09:13 POC Glucose 66 L* 67 L* 102 H OUTPATIENT ANTIDIABETIC REGIMEN: * Lantus 50 units HS, Novolog 10 units TID, metformin * A1c = 6.6% 03/05/21 ASSESSMENT: 03/13: * Pt received total of 63 units of insulin yesterday; 45 units basal + 18 units bolus. * AM Fasting BSG 67 mg/dl. Decrease basal slightly and change goal range to prevent further hypoglycemia. * Post prandial BSGs at goal, continue Novolog parameters. * Plan for d/c to rehab tomorrow AM 03/11: * Pt received total of 71 units of insulin yesterday; 45 units basal + 26 units bolus. * AM Fasting BSG at goal= 114 mg/dl. Continued same basal insulin dose. * Post prandial BSGs yesterday were either at goal or near it so continued same Novolog parameters. * Today, pre-lunch BSG was elevated at 253 mg/dl. This is probably because the AM Novolog was given around 2 hrs late. Expect BSG to trend down by dinner. 03/08 * Pt has received 99 units of insulin over the past 24hrs + IV insulin infusion * 50 units of basal with Lantus * 49 units of bolus with NovoLog * BSGs improved with the addition of IV insulin infusion 03/06-03/07. IV insulin infusion DC yesterday ~ 1200. Rechecked BSG at 1400 and it was elevated at 247 indicating that more basal insulin was needed to transition off of infusion. 7 units of NovoLog given to correct BSG and then Lantus increased and given early with dinner. BSGs markedly improved. * Hyperglycemic effects of Solumedrol should be completely diminished at this point in time. Will start empirically decreasing insulin regimen to prevent hypo tomorrow. 03/07 * BSGs well controlled with IV insulin infusion. Pt meets criteria to transition off of insulin infusion * High dose Solumedrol ended yesterday so BSGs should continue to improve as hyperglycemic effects wear off * SQ NovoLog given for all CHO consumed while on infusion in addition to SQ basal insulin with Lantus 40 units 24hrs * Outpatient basal insulin dosing is 50 units SQ HS; this was reduced slightly to 40 units for NPO but probably should have been increased secondary to steroids. * Will increase Lantus back to 50 units HS * CF/CR per estimated basal insulin dosing of 50 units * A1c is 6.6% therefore outpatient dosing should be adequate for inpatient without steroids on board 03/06 * BSG control initially improved yesterday, however deteriorated quickly with the addition of high dose IV steroids * Pt is now receiving IV Solu-medrol 250mg Q 6 hrs x 4 doses and will likely receive dexamethasone IV in OR today. Pt to have evacuation of hematomaand revision of spinal surgery. * IV insulin drip initiated due to sustained BSGs in mid-200s with expected ongoing significant insulin resistance for the next 24+ hrs. * Plan to continue basal insulin as previously order for ease of transition back to SQ basal/bolus regimen over next day or two 03/05 * BSGs better controlled this AM * Fasting BSG 145 this AM w/ 60 unis Lantus on board and following receipt of 11 units correctional insulin overnight * Effects of DXM given in OR should be dissipating over the course of the day today * Will resume reduced dose Lantus this evening * Plan to continue stress level 3 (high stress) Novolog doses initially this AM given total daily insulin requirements as outpt ~80 units/day 03/04 * 75 year old male now s/p spinal surgery. With tachycardia postop now transferred to ICU for monitoring. * Patient received 16 units in OR this afternoon, postop BSG elevated at 296 mg/dL - plan to give 10 units IV insulin * Will stress home dose basal and give 60 units x 1 now to account for DXM given in OR earlier * Begin stress of 3 dosing for novolog with overnight checks PLAN FOR INPATIENT GLYCEMIC CONTROL: * Hold outpatient oral diabetes medications (metformin) * Basal insulin: decrease - Lantus to 40 units Q HS * Bolus insulin ACHS: continued same * Goal Range 110-140 * CF = 15 * CR = 4 with breakfast and 5 with lunch, dinner and bedtime checks PLAN FOR DISCHARGE: * May resume home insulin and metformin regimen on discharge if no contraindications present, A1c 6.6% at goal
--- NOTE | 2021-03-13 16:32 | Hospitalist Progress Note ---
Date of Service March 13, 2021 Assessment & Plan (1) Lumbar stenosis with neurogenic claudication: (2) Lumbar spinal stenosis: Plan: S/P L4-S1 Posterior Lumbar Instrumentation and Fusion, L5-S1 posterior decompression, Local Autograft, Allograft on 03/04/[address] Polanco Patient transferred to the ICU for close monitor MRI on 03/06 showed Focal area of fluid collection at laminectomy site in L5-S1 level which is causing severe stenosis of the central canal. S/P Evacuation of Hematoma Posterior lumbar spine, Revision L5-S1 Laminectomy and right medial facetectomy and foraminotomy performed by Dr. Polanco Hemoglobin stable Continue incentive spirometry PT/OT eval as per Ortho Fall precaution Continue neuro check Continue monitor H&H and transfuse if H/H dropped below 8 Hemoglobin remains stable at 10.7 Medically stable to be discharged (3) Electrolyte imbalance: Plan: Magnesium 1.5 and K 5.3 on admission Mag and Phos stable Continue monitor electrolytes (4) Acute postoperative anemia due to greater than expected blood loss: Plan: Anemia of acute blood loss Due to recent orthopedic procedure Hemoglobin dropped 9.6 (preop hemoglobin was between 15-16) Continue monitoring H&H (5) Tachycardia: Plan: Atrial Flutter Possible related to hypovolemia due to low hemoglobin Cardiology on board Cardiology on board recommended to hold off on systemic anticoagulation since pt is in sinus rhythm and recent surgery and hematoma Metoprolol changed to 50 mg twice daily He would need outpatient Zio classroom monitor for 14 day to reassess arrhythmia as an outpatient. Continue monitor closely Appreciate cardiology input and recommendation Normal tachycardia (6) Chronic kidney disease: Plan: Creatinine stable (7) Diabetes: Plan: Most recent hemoglobin A1c 6.6 On insulin and NovoLog sliding scale Continue monitor blood sugar (8) HTN (hypertension): Plan: BP has been in the low side Continue to hold lisinopril due to low BP Will monitor BP while on metoprolol (9) HLD (hyperlipidemia): Plan: Continue fish oil and fenofibrate (10) Hypothyroid: Plan: Continue levothyroxine (11) BPH (benign prostatic hyperplasia): Plan: Continue Flomax daily (12) Urinary retention: Plan: Possible related due t to recent surgery, anesthetic agent and BPH Urology on board recommended to keep Morton catheter in place Continue Flomax if BP stable Recommend to continue holding Oxybutynin until patient able to void Morton catheter removed by urology for voiding trial on 03/11 Recommend continue to monitor post void residual bladder scans. Recommend place Morton catheter if PVR > 500 mL. Will arrange outpatient follow-up with our service. Medically stable to be discharged Plan: DVT Prophylaxis Per Surgery Protocol Possible Covid 19 exposure Repeat covid 19 negative on 03/11 infectious control said patient was not exposed because when the roommate family who was tested positive came to visit, Patient was in the ICU at that time Continue monitor Disposition Plan to go to rehab Admission and Anticipated Discharge Date Admission Date: March 04, 2021 Subjective 03/13/2021 The patient was seen and examined in medical floor He has been feeling perfectly normal and wants to be discharged Review of Systems Review of Systems: All systems reviewed and are unremarkable except as noted below Musculoskeletal: No back pain Physical Exam Physical Exam: Lying in bed comfortably Constitutional: well developed, well nourished and + obese; not ill appearing Eyes: PERRL, conjunctivae normal, anicteric sclerae ENMT: external ear and nose normal, oropharynx normal Neck: trachea midline, no thyromegaly Respiratory: no respiratory distress and no cough Auscultation: lungs clear to auscultation bilaterally Cardiovascular: Rate/Rhythm: regular rate and regular rhythm; not tachycardic Heart Sounds: normal S1 and normal S2; no murmur Gastrointestinal (Abdomen): normal bowel sounds, soft, nontender, no hepatosplenomegaly Neurologic: Alert, awake and oriented x3 Results & Data Results & Data ([facility]) Vital Signs (Past 12 Hours) Vital Signs Temp Pulse Resp BP Pulse Ox 03/13/21 15:38 37.2 C 75 18 123/63 93 03/13/21 07:32 36.6 C 69 18 146/67 H 96 Medications Administered Current Inpatient Medications Acetaminophen (Acetaminophen 500 Mg Tab) 1,000 mg PO Q8H PRN PRN Reason: MILD Pain Scale 1,2,3 & Pre PT Stop: 04/03/21 17:40 Last Admin: 03/06/21 01:24 Dose: 1,000 mg Documented by: Hydrocodone Bitart/Acetaminophen (Hydrocodone/Acetamophen 5/325mg Tab) 1 - 2 tab PO Q4H PRN PRN Reason: Pain & Pre PT Stop: 03/18/21 17:40 Last Admin: 03/11/21 15:35 Dose: 2 tab Documented by: Al Hydrox/Mg Hydrox/Simethicone (Aluminum/Magnesium Susp 30 Ml Udc) 30 ml PO Q6H PRN PRN Reason: Dyspepsia Stop: 04/03/21 17:40 Bisacodyl (Bisacodyl 10 Mg Supp) 10 mg RI DAILY PRN PRN Reason: Constipation Stop: 04/03/21 17:40 Cyanocobalamin (Cyanocobalamin 500 Mcg Tablet (Vitamin B-12)) 1,000 mcg PO QAM [facility] Stop: 04/04/21 08:59 Last Admin: 03/13/21 05:40 Dose: 1,000 mcg Documented by: Cyclobenzaprine HCl (Cyclobenzaprine Hcl 10 Mg Tab) 10 mg PO Q8 [facility] Stop: 04/03/21 21:59 Last Admin: 03/13/21 12:42 Dose: Not Given Documented by: Dextrose (Dextrose 50% 50 Ml Syringe) 25 - 50 ml IV UD PRN; Protocol PRN Reason: Hypoglycemia Protocol Stop: 04/03/21 18:23 Last Admin: 03/07/21 05:38 Dose: 25 ml Documented by: Diphenhydramine HCl (Diphenhydramine Capsule 25 Mg Cap) 25 mg PO Q6H PRN PRN Reason: Allergic Rhinitis/Insomnia Stop: 04/03/21 17:40 Famotidine (Famotidine 20 Mg Tab) 20 mg PO Q12H PRN PRN Reason: Dyspepsia Stop: 04/03/21 17:40 Fenofibrate (Fenofibrate Nanocrystallized 145 Mg Tablet) 145 mg PO QAM [facility] Stop: 04/04/21 08:59 Last Admin: 03/13/21 08:57 Dose: 145 mg Documented by: Gabapentin (Gabapentin 300 Mg Cap) 300 mg PO BID [facility] Stop: 04/03/21 20:59 Last Admin: 03/13/21 08:58 Dose: 300 mg Documented by: Glucagon (Glucagon For Inj 1 Mg Vial) 1 mg SQ UD PRN; Protocol PRN Reason: Hypoglycemia Protocol Stop: 04/03/21 18:23 Glucose (Glucose 10 Tabs/Tube) 4 - 8 tabs PO UD PRN; Protocol PRN Reason: Hypoglycemia Protocol Stop: 04/03/21 18:23 Glucose (Glucose 40% Gel 15 Gm Tube) 15 - 30 gm PO UD PRN; Protocol PRN Reason: Hypoglycemia Protocol Stop: 04/03/21 18:23 Hydromorphone HCl (Hydromorphone Inj 0.5 Mg/0.5 Ml Syr) 0.5 mg IV Q3H PRN PRN Reason: MOD pain (scale 4-6) & Pre PT Stop: 03/18/21 17:40 Last Admin: 03/05/21 22:08 Dose: 0.5 mg Documented by: Promethazine HCl 12.5 mg/ (Sodium Chloride) 50.5 mls @ 202 mls/hr IV Q6H PRN PRN Reason: Nausea &/or Vomiting Stop: 04/03/21 17:40 Influenza Virus Vaccine Quadrival (Do Not Administer Flu Vaccine) 1 ea N/A PRN PRN PRN Reason: Notification Stop: 04/03/21 17:40 Insulin Aspart (Insulin Aspart 100 Units/Ml 3 Ml Pen) 0 units SC TID@1130,1630,2100 [facility]; Protocol Stop: 04/08/21 16:29 Last Admin: 03/13/21 17:27 Dose: 7 units Documented by: Insulin Aspart (Insulin Aspart 100 Units/Ml 3 Ml Pen) 0 units SC DAILY@0730 [facility]; Protocol Stop: 04/09/21 07:29 Last Admin: 03/13/21 08:54 Dose: Not Given Documented by: Insulin Glargine (Insulin Glargine Solostar 100 Units/Ml 3 Ml Pen) 40 units SC HS [facility]; Protocol Stop: 04/12/21 20:59 Levothyroxine Sodium (Levothyroxine Sodium 112 Mcg Tablet) 112 mcg PO DAILYBB [facility] Stop: 04/04/21 06:29 Last Admin: 03/13/21 05:40 Dose: 112 mcg Documented by: Lidocaine (Lidocaine 5% 1 Patch) [facility] Stop: 04/10/21 12:59 Last Admin: 03/13/21 08:58 Dose: Not Given Documented by: Lisinopril (Lisinopril 20 Mg Tab) 20 mg PO QAM [facility] Stop: 04/13/21 08:59 Magnesium Hydroxide (Magnesium Hydroxide Susp 30 Ml Udc) 30 ml PO Q24H PRN PRN Reason: Constipation Stop: 04/03/21 17:40 Metoprolol Tartrate (Metoprolol Tartrate 1 Mg/Ml Vial) 2.5 mg IV Q5M PRN PRN Reason: Tachycardia for HR above 110 Stop: 04/06/21 21:01 Metoprolol Tartrate (Metoprolol Tartrate 50 Mg Tab) 50 mg PO BID [facility] Stop: 04/10/21 20:59 Last Admin: 03/13/21 08:58 Dose: 50 mg Documented by: Miscellaneous (Carbohydrates For Hypoglycemia ) 15 - 30 gm PO UD PRN PRN Reason: Hypoglycemia Protocol Stop: 04/03/21 18:23 Last Admin: 03/13/21 08:28 Dose: 15 gm Documented by: Miscellaneous (Remove Lidoderm Patch) 1 ea N/A DAILY@2100 [facility] Stop: 04/10/21 20:59 Last Admin: 03/12/21 20:41 Dose: 1 ea Documented by: Miscellaneous Information (Pharmacy Glycemic Mgmt Consult) 1 ea N/A UD PRN PRN Reason: Consult Stop: 04/03/21 17:40 Naloxone HCl (Naloxone Hcl 0.4 Mg/1 Ml Vial/Carp) 0.1 mg IV Q5M PRN PRN Reason: Oversedation/respiratory dep Stop: 04/03/21 17:40 Ondansetron HCl (Ondansetron Inj 2 Mg/Ml 2 Ml Vial) 4 mg IV Q6H PRN PRN Reason: Nausea &/or Vomiting Stop: 04/03/21 17:40 Ondansetron HCl (Ondansetron 4 Mg Od Tab) 4 mg PO Q6H PRN PRN Reason: Nausea Stop: 04/03/21 17:40 Pantoprazole Sodium (Pantoprazole 40 Mg Tab) 40 mg PO QAM [facility] Stop: 04/04/21 08:59 Last Admin: 03/13/21 08:58 Dose: 40 mg Documented by: Pneumococcal Polyvalent Vaccine (Do Not Administer Pneumococcal Vaccine) 1 ea N/A PRN PRN PRN Reason: Notification Stop: 04/03/21 17:40 Rosuvastatin Calcium (Rosuvastatin Calcium 5 Mg Tab) 5 mg PO QAM [facility] Stop: 04/04/21 08:59 Last Admin: 03/13/21 08:58 Dose: 5 mg Documented by: Senna/Docusate Sodium (Docusate Sodium/Senna 50/8.6mg Tab) 2 tab PO HS [facility] Stop: 04/03/21 20:59 Last Admin: 03/12/21 20:36 Dose: Not Given Documented by: Sodium Biphosphate/Sodium Phosphate (Sod Phosphate/Sod Biphosphate Enema 132 Ml Btl) 132 ml RI ONE PRN PRN Reason: Constipation Stop: 04/03/21 17:40 Tamsulosin HCl (Tamsulosin Hcl 0.4 Mg Cap) 0.4 mg PO QAM [facility] Stop: 04/04/21 08:59 Last Admin: 03/13/21 08:58 Dose: 0.4 mg Documented by:
[2021-03-13] MEDS ORDERED: INSULIN GLARGINE SOLOSTAR 100 UNITS/ML 3 ML PEN SC SCH (21:00)
[2021-03-13] MEDS: DOCUSATE SODIUM/SENNA 50/8.6MG TAB PO SCH (21:26)
[2021-03-14] MEDS: LEVOTHYROXINE SODIUM 112 MCG TABLET PO SCH (04:06)
[2021-03-14] MEDS: CYCLOBENZAPRINE HCL 10 MG TAB PO SCH (04:06)
[2021-03-14 07:42] LABS: Basophils # (auto) 0.03 K/uL (0-0.2); Basophils % (auto) 0.3 %; Eosinophils # (auto) 0.46 K/uL (0-0.5); Eosinophils % (auto) 5.2 %; Hematocrit (blood only) 31.5 % (42-52); Hemoglobin 10.6 g/dL (14.0-18.0); Immature Granulocytes # (auto) 0.12 K/uL (0.00-0.02); Immature Granulocytes % (auto) 1.3 %; Lymphocytes # (auto) 1.69 K/uL (1.2-3.4); Mean Corpuscular Hgb Conc 33.7 g/dL (32-36); Mean Corpuscular Volume 89.2 fL (80-100); Monocytes # (auto) 1.07 K/uL (0.11-0.59); Neutrophils # (auto) 5.52 K/uL (1.4-6.5); Neutrophils % (auto) 62.2 %; Platelet Count 306 K/uL (130-400); RDW Coefficient of Variation 14.9 % (11.5-14.5); RDW Standard Deviation 47.8 fL (36.4-46.3); Red Blood Count 3.53 M/uL (4.7-6.1); White Blood Count 8.89 K/uL (4.8-10.8)
[2021-03-14 08:00] LABS: BUN Creatinine Ratio 16.4 (10-20); Calcium 8.6 mg/dl (8.5-10.1); Creatinine Clr Calc Pharmacy 64.6 ml/min; Est GFR (African American) 70.8 ml/min; Est GFR (Non-African American) 61.1 ml/min; Magnesium 2.3 mg/dl (1.8-2.4); Potassium 4.2 mmol/L (3.5-5.1)
[2021-03-14] MEDS: FENOFIBRATE NANOCRYSTALLIZED 145 MG TABLET PO SCH (08:51)
[2021-03-14] MEDS: METOPROLOL TARTRATE 50 MG TAB PO SCH (08:51)
[2021-03-14] MEDS: GABAPENTIN 300 MG CAP PO SCH (08:51)
[2021-03-14] MEDS: CYANOCOBALAMIN 500 MCG TABLET (VITAMIN B-12) PO SCH (08:51)
[2021-03-14] MEDS: ROSUVASTATIN CALCIUM 5 MG TAB PO SCH (08:52)
[2021-03-14] MEDS: TAMSULOSIN HCL 0.4 MG CAP PO SCH (08:52)
[2021-03-14] MEDS: LIDOCAINE 5% 1 PATCH TD SCH (08:52)
[2021-03-14] MEDS: PANTOprazole 40 MG TAB PO SCH (08:52)
[2021-03-14] MEDS: INSULIN ASPART 100 UNITS/ML 3 ML PEN SC SCH ×2 (08:53→12:28)
[2021-03-14] MEDS ORDERED: lisinopril 20 MG TAB PO SCH (09:00)
--- NOTE | 2021-03-14 12:40 | Orthopedic Progress Note ---
Date of Service March 14, 2021 Assessment & Plan (1) Status post spinal surgery: Plan: discharge home today (patient preference vs. rehab and cleared by PT) home health for home discharge follow-up this week with me (previously arranged) follow-up separately arranged by cardiology, urology Admission and Anticipated Discharge Date Admission Date: March 04, 2021 Subjective cleared for dc home from mobility perspective by PT no new weakness noted by patient resolved numbness right foot back pain well-controlled no radiation of pain from back to the lower extremity Physical Exam Physical Exam: vitals: see vital signs section; on RA dressing: mild serosang discharge from drainage removal site drain: out vascular: no calf tenderness or swelling bilaterally. no signs of DVT Musculoskeletal: 5/5 motor strength bilateral L2-S1 except right L5 3/5, left S1 4/5, right S1 4+/5 Neurologic: Sensation 2/2 to light touch bilateral L2-S1, no saddle anesthesia Results & Data ([facility]) Vital Signs (Past 12 Hours) Vital Signs Temp Pulse Resp BP Pulse Ox 03/14/21 07:38 36.6 C 63 16 127/67 99 PG Care Time/CCT Total # of Minutes Spent Total Time Spent with Patient: Total time spent is greater than 50% in coordination of care (as documented) at patient's floor/unit and/or counseling patient: Coding Level of Care Code None Diagnoses Status post spinal surgery Z98.890
--- NOTE | 2021-03-14 12:46 | Discharge Summary ---
Date of Service March 14, 2021 Principal Diagnosis Neurogenic Claudication, Scoliosis Discharge Data Allergies Allergy/AdvReac Type Severity Reaction Status Date / Time niacin Allergy Mild red and Verified 03/04/21 05:42 sweating Consultations 03/04/21 17:41 Consult Hospitalist Routine 03/06/21 12:04 Consult Urology Routine 03/07/21 11:47 Consult Cardiology Routine Procedures Performed Operation Date: 03/04/21 07:15 Actual Procedures p L4-S1 Posterior Lumbar Instrumentation and Fusion, L5-S1 posterior decompression, Local Autograft, Allograft(Not Applicable) - Kristin Alvarado MD Operation Date: 03/06/21 07:30 Actual Procedures p L5-S1 Evacuation of Hematoma, Revision L5-S1 Laminectomy(Not Applicable) - Kristin Alvarado MD Ordered Studies 03/05/21 20:57 MR lumbar spine wo/w con Stat 03/05/21 22:33 CT lumbar spine wo con Urgent 03/06/21 07:26 US - OR guided needle placemen Routine Hospital Course (1) Status post spinal surgery: Patient underwent the above mentioned procedure. There were no complications noted intra-op. Post-operatively, patient was sent to recovery and then ICU for post-op monitoring. On post-op day 1, patient noted intermittent numbness of right foot and had urinary retention post-cathether removal. Imaging studies were concerning for possible compressive hematoma at surgical site and persistent right L5-S1 foraminal stenosis. Patient was taken back to OR 2 days after index surgery for assessment with right foraminal stenosis addressed and n o significant compressive deep hematoma noted. Patient was seen by urology with a trial of void 6 days after surgery being successful. His drains were removed post-op day 7. He had transient tachycardia post-op with cardiology involved with plans for outpatient follow-up and cardiac monitoring. Patient was followed closely by hospitalist service throughout stay and was cleared for discharge medically by this team. Patient was able to ambulate, void, and tolerate PO intake at time of discharge. Verbal discharge and follow-up instructions were given. Total Time Total Time Spent Total Time Spent (In Minutes): 25 Discharge Plan Discharge Items Patient Disposition: Home - Home Health Services Reason For Visit: Neurogenic Claudication, Scoliosis Discharge Diagnosis: Neurogenic Claudication, Scoliosis Activity: Per Instructions section Non-emergency contact: Surgeon Call non-emergency contact if: you have any medication questions Follow-up/Referrals: Adroja,Harry, M.D. [Primary Care Provider] - Diet: Carb Consistent or DM2 Addtl Attending Provider Instructions: Posterior Lumbar Decompression and Fusion (PLDF) Recovery Please hold your Aspirin home dose until seen in follow-up appointment Your blood pressure medications were changed while in hospital. Please see your PCP in the upcoming 1-2 weeks for repeat assessment of blood pressure control. What to expect You've had surgery, the first step toward the goals of decreasing back and leg pain, and stopping symptoms of nerve compression or an unstable spine from getting worse. Now it's time to focus on healing. By following these tips, you will set yourself up for a successful outcome after surgery. Top 4 things to know 1. A moderate or increased amount of back pain is expected after PLDF surgery. This will get better over the next four to six weeks. 2. Leg pain usually gets better after surgery, but may not be completely gone. Numbness, tingling and weakness take longer to get better after surgery. This is normal. 3. Do not use nicotine for at least three months. Nicotine will slow down your healing. 4. Avoid taking anti-inflammatory medications (NSAIDs) for six to 12 weeks or until your surgeon tells you it's safe to use them. NSAIDs include ibuprofen (Motrin. Advil), naproxen (Aleve. Naprosyn), meloxicam (Mobic), Celebrex and diclofenac. Pain and weakness Surgical back pain and muscle spasms are normal after spine surgery. This should get better over the next few weeks. Numbness, tingling and weakness that you had before surgery may take time to improve. Taking care of your incision Your incision may bleed and your dressing may get saturated with blood. This is normal. Change your dressing as often as needed to keep the incision clean and dry. If your incision has no drainage, you can take your dressing off three days after surgery, but always keep the incision area clean and dry. If you have skin glue or tape on your incision, try to leave it in place for the first two weeks. Showering You can take a shower three days after surgery once the incision is closed and doesn't have drainage. Let gentle soap and water run over the incision. Do not scrub it. Pat dry with a clean towel. Avoid taking tub baths, swimming and going in hot tubs until the incision is completely healed (four to six weeks). Taking medication Do not take anti-inflammatory medications (NSAIDs) for six to 12 weeks after surgery. These drugs can interfere with how you heal. NSAIDs include ibuprofen, Advil, Aleve, naproxen, Naprosyn, Mobic, meloxicam, Celebrex and diclofenac. If you need refills on your prescriptions, you may contact our office at least two days before you are out of pills so we have sufficient time to process your request. Refill requests on Tuesday afternoons and holidays likely will be addressed on the next day Start weaning yourself from pain medications as soon as you are able. Remember, pain is a natural part of the healing process. The goal is not to eliminate all pain but to keep you comfortable as you heal. Pain medications should be used only for a short period of time. Before taking Tylenol (acetaminophen), be aware that your pain medication probably has acetaminophen in it. Taking additional Tylenol or acetaminophen can put you over the daily recommended 3,000 milligrams, which can harm your liver. If you are taking a muscle relaxant, one of the side effects is drowsiness. If you feel too drowsy to safely get up and move around, take the muscle relaxant less often. Do not use tobacco products If you had been a smoker or used tobacco, you were required to stop before surgery. You've come this far, so why not quit for good. If you cannot do so, you must not use tobacco products for at least three months. Nicotine will keep you from properly healing. Be active, but no lifting We want you to be active as soon as you get home from the hospital Get up and walk often. If you go up and down stairs, make sure you hold onto the railing and have someone with you. Avoid excessive bending and twisting your back as much as you can, and do not lift anything over 10 pounds until your surgeon says it's OK. And no driving You cannot drive until you are no longer taking narcotic pain medications or muscle relaxants and you can move well enough to be safe behind the wheel. Most patients can begin driving after the 6 week postoperative appointment. Your surgeon will let you know when you can start driving. Constipation and bloating Constipation is a common side effect of taking narcotic pain medication and a good reason to begin tapering yourself off of pain medication as soon as you can. Drink lots of fluids, be active and eat foods high in fiber to help relieve constipation. If constipation is bothering you, a stool softener or laxative may help. Try one of the following, and always follow the instructions: Milk of Magnesia, MiraLAX, Dulcolax suppository, Fleet enema, magnesium citrate Follow up with your primary care provider If you have any health concerns, see your primary care provider within one week after surgery, especially if you have any of the following: Heart disease or have had a stroke Lung disease Diabetes Are over age 65 Take a blood thinner Take more than 10 prescription medications When is it an emergency? If you have any of the following symptoms, call 911 or go to an emergency room right away: Trouble breathing Chest pain Significant new weakness since your surgery If you have any other concerns, call our office at [phone] before going to an emergency room. In most cases we can help you or get you an appointment quickly. Addtl Sulfur Burner Provider Instructions: From [facility]. You will be contacted with a follow-up appointment. Please call our office at [phone] with any questions, concerns or need to reschedule appointments for any reason. We are happy to assist you. Pending Studies at Discharge: No Stand-Alone Forms: [facility] Medications and DC Order Prescriptions: New cyclobenzaprine 10 mg Tablet 10 mg PO Q8 Qty: 42 RF: 0 lisinopril 20 mg Tablet 20 mg PO QAM Qty: 30 RF: 0 hydrocodone-acetaminophen 5-325 mg Tablet 1 - 2 tab PO Q4H PRN (Reason: pain) Qty: 30 RF: 0 hydrocodone-acetaminophen 5-325 mg tablet 1 tab PO Q4H PRN (Reason: pain) Qty: 20 RF: 0 Continued furosemide 40 mg Tablet 40 mg PO QAM RF: 0 Lantus U-100 Insulin 100 unit/mL Solution 50 unit SUBCUT HS RF: 0 cyanocobalamin (vitamin B-12) [Vitamin B-12] 1,000 mcg Tablet 1,000 mcg PO QAM RF: 0 tamsulosin 0.4 mg Capsule 0.4 mg PO QAM RF: 0 insulin aspart U-100 [Novolog U-100 Insulin aspart] 100 unit/mL Solution 10 unit SUBCUT TIDM RF: 0 metformin 1,000 mg Tablet 1,000 mg PO BID RF: 0 metoprolol tartrate 50 mg Tablet 50 mg PO BID RF: 0 gabapentin 300 mg Capsule 300 mg PO BID RF: 0 oxybutynin chloride 5 mg Tablet 5 mg PO BID RF: 0 levothyroxine 112 mcg Tablet 112 mcg PO QAM RF: 0 rosuvastatin 5 mg Tablet 5 mg PO QAM RF: 0 fenofibrate nanocrystallized 145 mg Tablet 145 mg PO QAM RF: 0 omeprazole 20 mg Tablet,Delayed Release (Dr/Ec) 20 mg PO QAM RF: 0 omega 7-kms-mox-fish oil [Fish Oil] 1,000 mg (120 mg-180 mg) Capsule 1 cap PO QAM RF: 0 Discontinued aspirin 81 mg Tablet,Delayed Release (Dr/Ec) 81 mg PO QAM RF: 0 lisinopril 40 mg Tablet 40 mg PO QAM RF: 0 meloxicam 7.5 mg tablet 7.5 mg PO QAM RF: 0 Discharge Orders: Discharge Order (Routine); Ordered 03/14/21 Ordered By: Kristin Alvarado Admission Data Admit Date/Time: 03/04/21 16:14 Attending Provider: Kristin Alvarado Admit Provider: Kristin Alvarado Primary Care Provider: Harry Morse Other Providers: [facility] ; Nino Coyne ; Fina Read ; Josh Villafana ; Sergio Villa ; River Guillen ; Pipo Short ; Brendon Holman ; Niesha Macedo ; Kaylan Smith Roy ; Bee Hoff ; Kirsten Middleton ; Xu Belle ; Ke Todd ; Víctor Nina ; Fina Shrestha ; Timothy Brink ; Jill Garcia ; Lan Tapia ; Josh Kimbrough ; Navi Colon ; Raina Younger ; Johnathan Carbajal ; Bee Simon ; Russell Craig ; Dov Ta ; Varinder Britton ; Lonnie Burroughs ; Lan Nava ; Fina Justin ; Vic Noriega ; Malini Boucher ; Sandra Mireles ; Bee Linton ; Chang Liao ; River Tam ; Michelle Alejandra ; Hollie Linton ; Lonnie Parra ; Juan Estrada ; Antonio Elder ; River Lopez ; Nahun Barth ; Niko Marks ; Shannon Rizvi ; Eulalia Cedillo ; Kaylan Oleary ; Nghia Morgan ; Daisy Pereyra Coding Level of Care Code D/C DAY MANAGEMENT <30 MINS Diagnoses Status post spinal surgery Z98.890
--- NOTE | 2021-03-15 15:17 | Operative Report ---
[facility] Post Operative Report Pre & Post Diagnosis Operation Date: 03/04/21 Pre-Op Diagnosis: neurogenic claudication secondary to persistent central stenosis L5-S1 in context of previous documentation of L4-5 and L5-S1 lumbar laminectomies, focal scoliosis L4-5 Post-Op Diagnosis: neurogenic claudication secondary to central stenosis L5-S1, focal scoliosis L4- 5 after previous decompression procedure I identified the patient and participated in the time-out.: Yes Procedure 1. Posterolateral Lumbar Fusion L4-LS1 2. Posterior Lumbar Instrumentation same levels 3. Bilateral posterior lumbar laminectomy L5-S1, medial facetectomies and foraminotomies 4. Local Autograft for posterior lumbar fusion 5. Allograft, morselized (DBM) Surgeon Kristin Alvarado MD Child Life Specialist Ke Aguilar PA-C Estimated Blood Loss 1,500 Findings Consistent with Post-Op Diagnosis Specimens none Description of Procedure Indications: Patient is a 75 year old male with a previous history of spinal surgery in 2014 (documented as ""laminectomy L4-L5 and L5-S1, 2 level, foraminotomy, partial facetectomy"). He presented to my clinic on January 28, 2021 and followed up on February 09, 2021 with imaging and exam consistent with neurogenic claudication secondary to persistent central stenosis L5-S1 in context of previous documentation of L4- 5 and L5-S1 lumbar laminectomies with focal scoliosis L4-5, non-op exhausted including RAFFAELE. Informed consent was obtained and patient was booked for above procedure. On day of surgery, patient was identified in pre-op holding area. History and Physical was updated, surgical site was marked, and consent was confirmed. Risks, benefits and alternatives were discussed again and I answered all their questions. Implants: 1. Medtronic Solera Spinal System L4: left 45mmx6.5mm, right 45mmx6.5mm polyaxial screw L5: left 45mmx6.5mm, right 45mmx6.5mm polyaxial screw S1: left 40mmx7.5mm, right 35mmx7.5mm polyaxial screw 5.5mm Chromaloy Pre-Bent Chema, 60 mm right, 70 mm left 2. Medtronic [place] DBM Drains: 1. Hemovac drain x 2 (10 Arabic), one deep and one superficial to fascia Description of procedure: Patient was brought to the operating room and underwent general anesthesia. SCDs were applied to bilateral legs to reduce risk of DVT. Patient was place prone on a Aden table. Face, eyes, bony prominences, and peripheral nerves were well protected. The lumbar spine was prepped with alcohol and Chloraprep and draped in standard sterile fashion. A time-out was performed and documented. This included confirmation of administration of prophylactic antibiotics. Two spinal needle were inserted and a lateral xray taken to localize the incision. A midline incision was made. The incision was carried through the subcutaneous tissue with cautery. The fascia was incised and subperiosteal dissection carried over the lamina. The Ricardo retractor was placed. A #4 [place] elevator was positioned under the first exposed lamina and a siddhartha was place on the exposed spinous process. Lateral localization xray was taken and once appropriate level was confirmed, the level was marked. Cerebellar retractors followed by Zelpjayden were used to perform dissection of the facet capsule off the caudal levels, carrying out the dissection to the lateral gutters with all involved transverse processes on each side dissected in full posteriorly. Facetectomies were performed of the included level bilaterally with an osteotome. Sacral ala was also dissected lateral to the L5-S1 facet. Freehand pedicle screws were then placed bilaterally from L4 to S1. Screw tracts were started with a 3mm matchstick drill. Trajectory was assessed using localizing lateral x-ray for each level along with pre-op templating using x-ray and advanced imaging. A curved pedicle probe was used gently to identify appropriate trajectory to the length of the screw, followed by palpation with a pedicle feeler, tapping, re-palpation, burring of the transverse process posterior surface for fusion, and insertion of the screws. A 5.5mm tap was used for 6.5mm screws at L4 and L5. A 6.5mm tap was used for 7.5mm screws at S1. For S1 screws, the medial sacral ala was burred to prepare bony surface for fusion Lateral and AP portable x-rays confirmed satisfactory position of all screws except right L5. The screw was repositioned and repeat x-ray imaging confirmed appropriate positioning. The length of the left S1 screw was increased after review of x-ray imaging and confirmatory AP and lateral imaging was performed. Triggered EMG confirmed no activity on all screws up to a threshold of 20mA. I then proceeded with decompressing the central thecal sac and the traversing and exiting nerve roots. A high speed irene was used to perform a bilateral laminectomy of L5 up to the insertion of the ligamentum flavum. Of note, there were no obvious defects or scar tissues noted at L5-S1 that would suggest a previous laminectomy at this site, despite prior OR records suggestive of inclusion of this level in previous decompression procedure. Significant scar tissue was however noted at the L4-5 region. An up-angled curette was used to free the ligamentum flavum from its cranial and caudal attachments and it was removed with Kerrison rongeurs. Partial medial facetectomies and foraminotomies were performed using a irene and Kerrison rongeurs to open up the lateral recess and decompress the traversing and exiting nerve roots bilaterally. At the conclusion of the decompression, a ball-tipped probe was able to be freely passed into the foramens and through the lateral recesses. I then used precut and contoured rods on each side. To correct scoliosis curve, compression was performed on side of convexity and distraction in site of concavity between the L4 and L5 screws. All the set screws were sheared off using the torque counter-torque mechanism. The wound was then copiously irrigated. No spinal fluid leaks were identified. Local bone that had been saved from the spinous process, lamina, and facets was morselized in a bone mill. I decorticated the contralateral facet joint and performed posterolateral bone grafting. Local autograft and [place] DBM allograft was inserted in bilateral gutters between the transverse processes and the scaral ala, and in the facet joints. The wound was assessed for any sources of bleed and hemostasis was achieved prior to closure. To reduce risk of post-op infection, 2g of vancomycin powder was applied to the deep and superficial layers prior to closure. Deep and superficial drains were placed. The wound was closed in layers with #1 Vicryl for fascia, 2-0 Vicryl sutures for subcutaneous superficial closure and 3-0 Stratafix suture for subcuticular superficial closure. Steri-strips and sterile dressings were applied. The patient was then flipped supine, awakened and taken to the recovery room in stable condition. Neuromonitoring was performed throughout the case using EMG and triggered EMG as above. There were no intra-operative complications noted. Sponge and needle counts were correct x2 at the conclusion of the case. I attest to the content of the Intraoperative Record and any orders documented therein. Any exceptions are noted below.
--- NOTE | 2021-03-15 15:43 | Operative Report ---
[facility] Post Operative Report Pre & Post Diagnosis Operation Date: 03/06/21 Pre-Op Diagnosis: Post Operative Superficial and Deep Compressive Hematoma, Right L5 Persistent Foraminal Stenosis Post-Op Diagnosis: Post Operative Superficial Hematoma, Non-Compressive Deep Blood Clot, Right L5 Persistent Foraminal Stenosis I identified the patient and participated in the time-out.: Yes Procedure 1. L5-S1 Evacuation of Hematoma, Revision L5-S1 Laminectomy and Right Facetectomy and Foraminotomy 2. DBM bone grafting Surgeon Kristin Alvarado MD Funnel Setter Ke Aguilar PA-C Estimated Blood Loss 1,500 Findings Consistent with Post-Op Diagnosis Specimens none Description of Procedure Indications: Patient is a 75 year old male, 2 days post-op L4-S1 posterior lumbar fusion, L5- S1 laminectomy that was found to have urinary retention post-operatively with intermittent numbness of the right L5. Imaging was concerning for possible deep compressive hematoma along with persistence of right L5 foraminal stenosis. Given concern for urinary retention being due to pressure from a hematoma, a decision was made to take patient back for a washout. At the same time, a more extensive right foraminotomy and facetectomy was planned. Informed consent was obtained and patient was booked for above procedure. On day of surgery, patient was identified in pre-op holding area. History and Ph ysical was updated, surgical site was marked, and consent was confirmed. Risks, benefits and alternatives were discussed again and I answered all their questions. Implants: none Drains: 15 italian deep x 2, 10 italian superficial x 1 Description of procedure: Patient was brought to the operating room and underwent general anesthesia. SCDs were applied to bilateral legs to reduce risk of DVT. Patient was place prone on a Terry frame. Face, eyes, bony prominences, and peripheral nerves were well protected. The lumbar spine dressings and previous drains were removed, and patient was prepped with alcohol and Chloraprep and draped in standard sterile fashion. A time-out was performed and documented. This included confirmation of administration of prophylactic antibiotics. Previous incision was opened and old sutures removed. Large sangionous collection was encountered superficial to the fascia and removed. Fascia layer was opened and area deep to fascia was inspected. No major blood collection was noted in this region. A small blood clot was noted above the dura with non- compressive appearance. This was removed. Copious irrigation was performed. No obvious active bleeding was noted from the gutters. Very slow ooze was noted from scar tissue at the L4-L5 region and was controlled using bipolar cautery. Attention was then turned into revision decompression procedure aspect of the procedure. Laminectomy was extended more proximally on the right side and the right inferior articulating at L5-S1 was removed in order to trace exiting L5 nerve root completely along the foramen. A ball-tipped probe was able to freely pass in the foramen and all the way out laterally at the conclusion of the procedure with direct visualization of an open path. Similarly, the traversing S1 nerve root was visualized ball-tipped probe was used to confirm copious space for the nerve root on the right side. The wound was then copiously irrigated. No spinal fluid leaks were identified. The wound was assessed for any sources of bleed and hemostasis was achieved prior to closure. Removed bone along with additional DBM bone graft was added to the right lateral gutter to help with fusion at this level. To reduce risk of post-op infection, 2g of vancomycin powder was applied to the deep and superficial layers prior to closure. Given previous concern for compressive hematoma, two 15 italian deep drains and one 10 italian superficial drains were inserted. The wound was closed in layers with #1 Vicryl for fascia, 2-0 Vicryl sutures for subcutaneous superficial closure and 3-0 Stratafix suture for subcuticular superficial closure. Incision was further supported with 2.0 nylon superficial running sutures. Steri-strips and sterile dressings were applied. The patient was then flipped supine, awakened and taken to the recovery room in stable condition. There were no intra-operative complications noted. Sponge and needle counts were correct x2 at the conclusion of the case. I attest to the content of the Intraoperative Record and any orders documented therein. Any exceptions are noted below.
== END 2021-03-14 14:26 | disposition home health service (06) | DRG 460 ==
LOC: ASU 05:04 → 1E 16:14 → 3W 03-09 18:27 → 3N 03-11 23:28